=== PATIENT | male | born 1960 | race Caucasian/White ===

== ENCOUNTER → 2019-07-22 07:47 | Outpatient (BNVA) | payer MEDICARE, SELFPAY | PROVIDERS: Family Provider Family Medicine; PCP Family Medicine; Visit Provider Psychiatry & Neurology Psychiatry | DX: F41.1 Generalized anxiety disorder (principal); F40.10 Social phobia, unspecified; F33.1 Major depressive disorder, recurrent, moderate | CPT/HCPCS: 99213 ==

== ENCOUNTER 2019-07-26 11:17 | Outpatient (CLI) | payer MEDICARE, SELFPAY ==
--- NOTE | 2019-07-26 10:45 | USCV_ITS ---
Gio Ferraro Age: 58 Gender: M : 1960 Exam Date: 07/26/2019 11:23 Ordering Phys: Roe Adame MD ([email or web address]) Technologist: Little Wilson Exam Location: [facility] [place] Indication: SOB, BP: 91 / 65 HR: 85 Rhythm: Sinus Technical Quality: Adequate MEASUREMENTS (Male / Female) Normal Values 2D ECHO LV Diastolic Diameter PLAX 3.2 cm 4.2 - 5.9 / 3.9 - 5.3 cm LV Systolic Diameter PLAX 2.6 cm IVS Diastolic Thickness 1.6 cm 0.6 - 1.0 / 0.6 - 0.9 cm IVS Systolic Thickness 1.5 cm LVPW Diastolic Thickness 1.2 cm 0.6 - 1.0 / 0.6 - 0.9 cm LVPW Systolic Thickness 1.3 cm LVOT Diameter 2.1 cm LV Ejection Fraction 2D Teich 42.1 % LV Ejection Fraction MOD 2C 60.5 % LV Ejection Fraction 2C AL 61.8 % LA Diameter 3.0 cm LA Width 2.9 cm LA Height 4.9 cm RA Width 3.4 cm RA Height 4.4 cm M-MODE LV Diastolic Diameter MM 5.1 cm 4.2 - 5.9 / 3.9 - 5.3 cm LV Systolic Diameter MM 3.8 cm LV Ejection Fraction MM Teich 50.3 % IVS Diastolic Thickness MM 1.1 cm 0.6 - 1.0 / 0.6 - 0.9 cm IVS Systolic Thickness MM 1.4 cm LVPW Diastolic Thickness MM 1.2 cm 0.6 - 1.0 / 0.6 - 0.9 cm LVPW Systolic Thickness MM 2.1 cm Aortic Annulus Diameter 3.8 cm LA Ao Ratio MM 0.8 MV E Point Septal Separation 0.8 cm DOPPLER AV Peak Velocity 85.0 cm/s LVOT Peak Velocity 89.0 cm/s AV Area Cont Eq vti 3.8 cm squared AV Area Cont Eq pk 3.6 cm squared MV Peak Velocity 80.0 cm/s MV Area PHT 4.2 cm squared Mitral E to A Ratio 0.9 MV E' Velocity 5.0 cm/s Mitral E to MV E' Ratio 11.9 Mitral E to LV E' Lateral Ratio 11.7 Mitral E to LV E' Septal Ratio 12.1 TR Peak Velocity 63.0 cm/s TR Peak Gradient 1.6 mmHg Right Atrial Pressure 3.0 mmHg Pulmonary Artery Systolic Pressu 4.6 mmHg PV Peak Velocity 96.0 cm/s RV Acceleration Time 0.1 s FINDINGS Left Ventricle Normal left ventricular cavity size. Normal left ventricular systolic function. No regional wall motion abnormalities. Left ventricular ejection fraction is estimated at 55 %. Grade I/IV diastolic dysfunction (abnormal relaxation filling pattern), normal to mildly elevated filling pressures. Right Ventricle The right ventricle is normal in size and function. RVSP could not be calculated due to incomplete tricuspid regurgitation velocity profile. Right Atrium The right atrium is normal in size. Left Atrium The left atrium is normal in size. Mitral Valve Structurally normal mitral valve without significant stenosis or prolapse. There is no mitral regurgitation. Aortic Valve Moderate aortic valve calcification. No aortic valve stenosis. Trace aortic valve regurgitation. Tricuspid Valve Structurally normal tricuspid valve without significant stenosis or regurgitation. Pulmonary artery systolic pressure is normal. Pulmonic Valve Structurally normal pulmonic valve without significant stenosis. There is no pulmonic regurgitation. Pericardium Normal pericardium without effusion. Aorta Normal ascending aorta dimension. CONCLUSIONS 1-Normal left ventricular cavity size. Normal left ventricular systolic function. No regional wall motion abnormalities. Left ventricular ejection fraction is estimated at 55 %. Grade I/IV diastolic dysfunction (abnormal relaxation filling pattern), normal to mildly elevated filling pressures. 2-Moderate aortic valve calcification. No aortic valve stenosis. Trace aortic valve regurgitation. 3-Pulmonary artery systolic pressure is within normal limits. 4-There is no pericardial effusion. 5-Right atrial pressure is around 5 mm of mercury. 6-No significant change since the prior echocardiogram study of 01/22/2013. Roe Adame MD (Electronically Signed) Final Date: 26 July 2019 18:18 S
== END 2019-07-26 11:18 | disposition home or self-care (01) ==
LOC: US 11:18
PROVIDERS: PCP Family Medicine; Visit Provider Internal Medicine Cardiovascular Disease
DX: R06.02 Shortness of breath (principal); I27.20 Pulmonary hypertension, unspecified; I35.1 Nonrheumatic aortic (valve) insufficiency
CPT/HCPCS: 93306

== ENCOUNTER → 2019-08-09 14:00 | Outpatient (BNVA) | payer MEDICARE, SELFPAY | PROVIDERS: PCP Family Medicine; Visit Provider Family Medicine | DX: E11.65 Type 2 diabetes mellitus with hyperglycemia (principal); R35.0 Frequency of micturition; Z68.35 Body mass index [BMI] 35.0-35.9, adult; F17.210 Nicotine dependence, cigarettes, uncomplicated | CPT/HCPCS: 36416; 81000; 82962 ==

== ENCOUNTER → 2019-08-23 11:10 | Outpatient (BNVA) | payer MEDICARE, SELFPAY | PROVIDERS: PCP Family Medicine; Visit Provider Family Medicine | DX: E11.65 Type 2 diabetes mellitus with hyperglycemia (principal); F41.1 Generalized anxiety disorder; I10 Essential (primary) hypertension; Z68.36 Body mass index [BMI] 36.0-36.9, adult; F17.210 Nicotine dependence, cigarettes, uncomplicated | CPT/HCPCS: 80048; 83036 ==

== ENCOUNTER → 2019-12-20 09:53 | Outpatient (BNVA) | payer MEDICARE, SELFPAY | PROVIDERS: PCP Family Medicine; Visit Provider Family Medicine | DX: E11.65 Type 2 diabetes mellitus with hyperglycemia (principal) | CPT/HCPCS: 80053; 83036 ==

== ENCOUNTER → 2020-01-13 08:26 | Outpatient (BNVA) | payer MEDICARE, MEDICAID, SELFPAY | PROVIDERS: PCP Family Medicine; Visit Provider Psychiatry & Neurology Psychiatry | DX: F41.1 Generalized anxiety disorder (principal); F40.10 Social phobia, unspecified; F33.1 Major depressive disorder, recurrent, moderate | CPT/HCPCS: 99213 ==

== ENCOUNTER → 2020-04-25 11:01 | Outpatient (BNVA) | payer MEDICARE, SELFPAY | PROVIDERS: PCP Family Medicine; Visit Provider Family Medicine | DX: E11.65 Type 2 diabetes mellitus with hyperglycemia (principal) | CPT/HCPCS: 80048; 83036 ==

== ENCOUNTER → 2020-07-03 09:12 | Outpatient (BNVA) | payer MEDICARE, MEDICAID, SELFPAY | PROVIDERS: PCP Family Medicine; Visit Provider Psychiatry & Neurology Psychiatry | DX: F41.1 Generalized anxiety disorder (principal); F40.10 Social phobia, unspecified; F33.1 Major depressive disorder, recurrent, moderate | CPT/HCPCS: 99214 ==

== ENCOUNTER 2020-10-04 12:15 | Outpatient (CLI) | payer MEDICARE, SELFPAY ==
--- NOTE | 2020-10-04 12:00 | CT_ITS ---
WS: [id number] CTA HEAD TECHNIQUE: Contrast enhanced CTA of the head with coronal and sagittal reformatted images and maximum intensity projection (MIP) images. NASCET criteria utilized. CLINICAL INFORMATION: right sided weakness 6+ hours on elequis COMPARISON: None. DLP: 632.[address] scans at [facility] use at least one of these dose optimization techniques: automat ed exposure control; mA and/or kV adjustment per patient size (includes targeted exams where dose is matched to clinical indication); or iterative reconstruction. FINDINGS: INTRACRANIAL CTA: Distal vertebral arteries are patent. Basilar artery is patent. Normal vascularity to the [place] territo ry bilaterally. Both ICAs are patent the skull base. Tortuous cavernous carotid arteries. Normal vascularity to the A CA and MCA territories bilaterally. No evidence of flow-limiting stenosis or aneurysm. CT/CT angio head [id number] IMPRESSION: Normal intracranial CTA.
--- NOTE | 2020-10-04 12:30 | CT_ITS ---
WS: [id number] CT HEAD TECHNIQUE: Noncontrast CT of the head obtained from the skullbase to the vertex. CLINICAL INFORMATION: right sided weakness x 6 hours on elequis COMPARISON: 7 012 DLP: 1021.[address] scans at [facility] use at least one of these dose optimization techniques: automat ed exposure control; mA and/or kV adjustment per patient size (includes targeted exams where dose is matched to clinical indication); or iterative reconstruction. FINDINGS: No evidence of intracranial hemorrhage or mass effect. Ventricular system and basal cisterns are perry nt. Mild small vessel changes with moderate parenchymal volume loss. No extra-axial fluid collections . Chronic lacunar infarct right caudate. Intracranial vascular calcification. Dystrophic calcificatio n along the falx. No evidence of mass or mass effect. Paranasal sinuses and mastoid air cells are well aerated. .Normal visualized soft tissues. CT/CT head wo con* [id number] IMPRESSION: 1. No evidence of intracranial hemorrhage or mass effect. 2. Mild small vessel changes. Moderate parenchymal volume loss. 3. No acute intracranial findings.
[2020-10-04] MEDS: iohexol 350 mg/mL 100 mL Btl IV (13:47)
== END 2020-10-04 12:16 | disposition home or self-care (01) ==
LOC: RAD 12:23
PROVIDERS: PCP Family Medicine; Visit Provider Family Medicine
DX: R53.1 Weakness (principal)
CPT/HCPCS: 36416; 70450; 70496; 82962

== ENCOUNTER → 2020-12-25 10:51 | Outpatient (BNVA) | payer MEDICARE, MEDICAID, SELFPAY | PROVIDERS: PCP Family Medicine; Visit Provider Psychiatry & Neurology Psychiatry | DX: F41.1 Generalized anxiety disorder (principal); F40.10 Social phobia, unspecified; F33.1 Major depressive disorder, recurrent, moderate | CPT/HCPCS: 99213 ==

== ENCOUNTER → 2021-02-12 09:27 | Outpatient (BNVA) | payer MEDICARE, MEDICAID, SELFPAY | PROVIDERS: PCP Family Medicine; Visit Provider Family Medicine | DX: E11.9 Type 2 diabetes mellitus without complications (principal) | CPT/HCPCS: 80053; 83036; 85025 ==

== ENCOUNTER → 2021-02-13 09:21 | Outpatient (BNVA) | payer MEDICARE, MEDICAID, SELFPAY | PROVIDERS: PCP Family Medicine; Visit Provider Family Medicine | DX: E11.65 Type 2 diabetes mellitus with hyperglycemia (principal); E03.9 Hypothyroidism, unspecified; E78.00 Pure hypercholesterolemia, unspecified | CPT/HCPCS: 80061; 84443 ==

== ENCOUNTER → 2021-06-18 10:52 | Outpatient (BNVA) | payer MEDICARE, MEDICAID, SELFPAY | PROVIDERS: PCP Family Medicine; Visit Provider Psychiatry & Neurology Psychiatry | DX: F41.1 Generalized anxiety disorder (principal); F40.10 Social phobia, unspecified; F33.1 Major depressive disorder, recurrent, moderate | CPT/HCPCS: 99214 ==

== ENCOUNTER → 2021-10-08 10:25 | Outpatient (BNVA) | payer MEDICARE, MEDICAID, SELFPAY | PROVIDERS: PCP Family Medicine; Visit Provider Family Medicine | DX: I82.401 Acute embolism and thrombosis of unspecified deep veins of right lower extremity (principal); I10 Essential (primary) hypertension; E11.65 Type 2 diabetes mellitus with hyperglycemia; F41.1 Generalized anxiety disorder | CPT/HCPCS: 80053; 83036; 85025 ==

== ENCOUNTER 2021-10-09 09:00 | Outpatient (CLI) | payer MEDICARE, SELFPAY ==
--- NOTE | 2021-10-09 09:07 | USCV_ITS ---
Gio Ferraro Age: 60 Gender: M : 1960 Exam Date: 10/09/2021 09:35 Ordering Phys: Terrell Verdin MD Technologist: Jose Alberto Jimenez Exam Location: [facility] [place] Indication: DVT OF RIGHT LOWER EXTREMITY HISTORY: Patient states that he had DVT 5 years ago. Patient states he is currently on blood thinner. PROCEDURES: Comparison:. 10/14/18. Venous duplex imaging was performed in only the right lower extremity. The following venous structures were evaluated: common femoral vein, profunda vein, proximal portion of the greater saphenous vein, superficial femoral vein, and the popliteal vein. In addition, the posterior tibial and peroneal trunk were evaluated. Serial compression, augmentation maneuvers, and spectral Doppler flow evaluation were performed. FINDINGS: Within the right lower extremity t there is partial thrombus or remnant of thrombus in the CFV, SFV mid, and popliteal. Prior acute DVT described in 2019. All other veins examined appear free of thrombus at this time. CONCLUSIONS Suspect chronic right lower extremity DVT. Dr. Pau Tse DO (Electronically Signed) Final Date: 09 October 2021 15:12 S
== END 2021-10-09 09:01 | disposition home or self-care (01) ==
LOC: RAD 09:01
PROVIDERS: PCP Family Medicine; Visit Provider Family Medicine
DX: I82.401 Acute embolism and thrombosis of unspecified deep veins of right lower extremity (principal)
CPT/HCPCS: 93971

== ENCOUNTER → 2022-04-08 09:47 | Outpatient (BNVA) | payer OTHER, SELFPAY | PROVIDERS: PCP Family Medicine; Visit Provider Family Medicine | DX: E11.9 Type 2 diabetes mellitus without complications (principal) | CPT/HCPCS: 80053; 83036; 85025 ==

== ENCOUNTER → 2022-10-09 10:58 | Outpatient (BNVA) | payer MEDICARE, SELFPAY | PROVIDERS: PCP Family Medicine; Visit Provider Family Medicine | DX: E11.65 Type 2 diabetes mellitus with hyperglycemia | CPT/HCPCS: 80053; 83036; 85025 ==

== ENCOUNTER 2022-10-23 12:47 | Outpatient (CLI) | payer MEDICARE, SELFPAY ==
--- NOTE | 2022-10-23 13:30 | USCV_ITS ---
Gio Ferraro Age: 61 Gender: M : 1960 Exam Date: 10/23/2022 14:06 Ordering Phys: Terrell Verdin MD Technologist: Yadira Prince Exam Location: [facility] [place] Indication: FOLLOW UP ON KNOWN DVT RT LE FROM 2018 HISTORY: Known history of DVT RLE PROCEDURES: Venous duplex imaging was performed in only the right lower extremity. The following venous structures were evaluated: common femoral vein, profunda vein, proximal portion of the greater saphenous vein, superficial femoral vein, and the popliteal vein. In addition, the posterior tibial and peroneal trunk were evaluated. Serial compression, augmentation maneuvers, and spectral Doppler flow evaluation were performed. FINDINGS: Flow noted in all areas. There is still debris with in the Rt CFV and FV and POP. Flow is seen and it will augment. There is incomplete compression in Rt. CFV and FV and POP comp 10/09/21 CONCLUSIONS Residual debris from chronic dvt RIGHT common femoral, femoral, and popliteal vein. Flow visualized in all segments. No new or progressed thrombus. Garo Kulkarni MD (Electronically Signed) Final Date: 23 October 2022 16:43 S
== END 2022-10-23 12:48 | disposition home or self-care (01) ==
PROVIDERS: PCP Family Medicine; Visit Provider Family Medicine
DX: I82.401 Acute embolism and thrombosis of unspecified deep veins of right lower extremity (principal)
CPT/HCPCS: 93971

== ENCOUNTER → 2022-12-02 12:17 | Outpatient (BNVA) | payer MEDICARE, SELFPAY | PROVIDERS: PCP Family Medicine; Visit Provider Family Medicine | DX: E11.9 Type 2 diabetes mellitus without complications (principal); F41.1 Generalized anxiety disorder | CPT/HCPCS: 82962 ==

== ENCOUNTER → 2023-01-06 10:01 | Outpatient (BNVA) | payer MEDICARE, SELFPAY | PROVIDERS: PCP Family Medicine; Referring Provider Family Medicine; Visit Provider Internal Medicine Cardiovascular Disease | DX: R55 Syncope and collapse (principal); E11.9 Type 2 diabetes mellitus without complications; F33.1 Major depressive disorder, recurrent, moderate; F40.10 Social phobia, unspecified; Z91.89 Other specified personal risk factors, not elsewhere classified | CPT/HCPCS: 93246; 93248 ==

== ENCOUNTER → 2023-06-09 09:56 | Outpatient (BNVA) | payer MEDICARE, SELFPAY | PROVIDERS: PCP Family Medicine; Visit Provider Family Medicine | DX: E11.65 Type 2 diabetes mellitus with hyperglycemia (principal); R55 Syncope and collapse; Z91.89 Other specified personal risk factors, not elsewhere classified; F40.10 Social phobia, unspecified; I10 Essential (primary) hypertension | CPT/HCPCS: 80053; 83036; 85025 ==

== ENCOUNTER → 2023-08-11 09:16 | Outpatient (BNVA) | payer MEDICARE, SELFPAY | PROVIDERS: PCP Family Medicine; Visit Provider Family Medicine | DX: I82.409 Acute embolism and thrombosis of unspecified deep veins of unspecified lower extremity (principal); F41.1 Generalized anxiety disorder; F33.1 Major depressive disorder, recurrent, moderate; E11.65 Type 2 diabetes mellitus with hyperglycemia; I10 Essential (primary) hypertension; R73.03 Prediabetes | CPT/HCPCS: 80053; 83036; 85025 ==

== ENCOUNTER → 2023-08-29 10:11 | Outpatient (BNVA) | payer MEDICARE, SELFPAY | PROVIDERS: PCP Family Medicine; Visit Provider Family Medicine | DX: N18.9 Chronic kidney disease, unspecified (principal); Z79.899 Other long term (current) drug therapy | CPT/HCPCS: 85025 ==

== ENCOUNTER → 2023-09-15 09:41 | Outpatient (BNVA) | payer MEDICARE, SELFPAY | PROVIDERS: PCP Family Medicine; Visit Provider Family Medicine | DX: E11.65 Type 2 diabetes mellitus with hyperglycemia (principal) | CPT/HCPCS: 80048 ==

== ENCOUNTER → 2024-03-15 09:45 | Outpatient (BNVA) | payer MEDICARE, SELFPAY | PROVIDERS: PCP Family Medicine; Visit Provider Family Medicine | DX: R55 Syncope and collapse (principal); I10 Essential (primary) hypertension; E11.65 Type 2 diabetes mellitus with hyperglycemia; Z91.89 Other specified personal risk factors, not elsewhere classified | CPT/HCPCS: 80053; 83036; 85025 ==

== ENCOUNTER → 2024-05-31 15:16 | Outpatient (BNVA) | payer MEDICARE, SELFPAY | PROVIDERS: PCP Family Medicine; Visit Provider Family Medicine | DX: R35.1 Nocturia (principal); I10 Essential (primary) hypertension; E11.65 Type 2 diabetes mellitus with hyperglycemia; N10 Acute pyelonephritis; F41.1 Generalized anxiety disorder | CPT/HCPCS: 80053; 81000; 85025 ==

== ENCOUNTER 2024-06-26 00:22 | Emergency (ER) | payer MEDICARE, SELFPAY ==
[2024-06-26 00:29] VITALS: BP 158/89; PULSE 84; RESP 18; TEMP 36.9; O2SAT 98
[2024-06-26 00:55] LABS: Basophils # 0.1 10^3/uL (0.0-0.1); Basophils % 0.3 %; Eosinophils # 0.2 10^3/uL (0.0-0.8); Eosinophils % 1.3 %; Hematocrit 34.8 % (37-53); Lymphocytes # 1.8 10^3/uL (0.8-4.8); Lymphocytes % 11.9 %; Mean Corpuscular Hemoglobin 26.7 pg (27-33); Mean Corpuscular Volume 80.9 fl (82-101); Mean Platelet Volume 9.2 fL (7.4-10.4); Monocytes # 1.6 10^3/uL (0.2-0.9); Monocytes % 10.6 %; Nucleated Red Blood Cells % 0 %; Platelet Count 127 10^3/cmm (157-399); Red Cell Distribution Width 13.7 % (12.1-15.1); White Blood Count 15.07 10^3/uL (3.29-11.43)
[2024-06-26 01:16] LABS: Anion Gap 19.9 (5-19); Blood Urea Nitrogen 49 mg/dL (8-23); Calcium 9.9 mg/dL (8.5-10.5); Carbon Dioxide 16 mmol/L (22-29); Chloride 101 mmol/L (98-107); Creatinine Clr Calc Pharmacy 30.3756; Glomerular Filtration Rate 22.1 mL/min (90-130); Glucose 164 mg/dL (65-115); Lipase 87 U/L (13-60); Magnesium 1.3 mg/dL (1.7-2.3); Osmolality Calculated 291 mOsm/kg (285-295); Potassium 4.9 mmol/L (3.5-5.1); Sodium 132 mmol/L (136-145)
--- NOTE | 2024-06-26 03:45 | CTR_ITS ---
PROCEDURE INFORMATION: Exam: CT Abdomen And Pelvis Without Contrast Exam date and time: 06/26/2024 4:22 AM Age: 63 years old Clinical indication: Bloating; Abdominal pain; Generalized; Prior surgery; Surgery date: 6+ months; Surgery type: Gb; C/O severe abd pain with distention; Additional info: Severe abdominal pain and distention. , Unable to do iv contrast secondary to gfr of 22 TECHNIQUE: Imaging protocol: Computed tomography of the abdomen and pelvis without contrast. Radiation optimization: All CT scans at this facility use at least one of these dose optimization techniques: automated exposure control; mA and/or kV adjustment per patient size (includes targeted exams where dose is matched to clinical indication); or iterative reconstruction. COMPARISON: CT angio chest PE protcl [id number] 10/14/2018 8:58 AM RADIATION DOSE METRICS: Total DLP (mGy-cm): 1115.33 FINDINGS: Liver: Normal appearance of the liver. Gallbladder and biliary ducts: Status post cholecystectomy. Pancreas: No ductal dilation. Spleen: Unremarkable. Adrenal glands: Unremarkable. Kidneys and ureters: Severe bilateral hydroureteronephrosis. Stomach and bowel: No obstruction. No mucosal thickening. Appendix: Normal appendix. Intraperitoneal space: No free air. No significant fluid collection. Vasculature: Unremarkable. Lymph nodes: No enlarged lymph nodes. Urinary bladder: Urinary bladder is markedly dilated. Reproductive: Mild stranding about the prostate. Bones/joints: Unremarkable. No acute fracture. Soft tissues: Small fat containing ventral abdominal wall hernia. CT/CT abdomen pelvis wo con [id number] IMPRESSION: 1. Urinary bladder is markedly dilated with severe bilateral hydroureteronephrosis. Findings are concerning for bladder outlet obstruction. Recommend catheterization. 2. Mild stranding about the prostate, concerning for prostatitis. This could potentially be the cause for outlet obstruction.
[2024-06-26] MEDS: sodium chloride 0.9% 1,000 ML 999 ML IV (04:03)
[2024-06-26] MEDS: ondansetron 2 mg/ML SDV 2 mL 8 MG IVP (04:04)
[2024-06-26] MEDS: HYDROmorphone 0.5 MG/0.5 ML INJ 1 MG IVP (04:06)
[2024-06-26 04:10] LABS: INR 1.01 (0.8-1.2)
[2024-06-26 04:11] VITALS: PULSE 75; RESP 22; O2SAT 100
[2024-06-26 04:11] LABS: Partial Thromboplastin Time 29.5 SECONDS (23.9-36.7)
[2024-06-26 04:29] LABS: Lactic Sepsis W/Reflex 1.6 mmol/L (0.5-2.2)
[2024-06-26 05:46] LABS: Procalcitonin 0.27 ng/mL (0-0.5)
[2024-06-26] MEDS: lidocaine 2% Urojet 20 mL TOPICAL (05:50)
[2024-06-26 05:58] VITALS: BP 122/69; PULSE 77; RESP 18; O2SAT 99
--- NOTE | 2024-06-26 06:01 | W.ED.ABDPA2 ---
Documented by User: Dakota Agarwal MD 06/26/24 06:08 HPI - Abdominal Pain General: Chief Complaint: Abdominal Pain Stated Complaint: abdomen pain Time Seen by Provider: 06/26/24 03:27 Source: patient and family Mode of arrival: ambulatory Limitations: no limitations History of Present Illness: Patient comes in with severe abdominal pain. Also had some diarrhea today. He is having flank pain mainly at the right side his abdomen is very distended and hard. He has a history of a hiatal hernia. He he also has a history of major abdominal surgery with ex lap scarring on the middle. He reports that had to do things with his gallbladder and pancreas he is unsure of the details. Due to the distention and some trouble breathing and had to have no more than a few sips of water at time due to nausea. He has a history of kidney issues and in fact has a scheduled appoint with urology on Friday. He also reports a ringing sound in his head that is causing him to be dizzy. Related Data Home Medications ?Medication ?Instructions ?Recorded ?Confirmed aspirin 81 mg chewable tablet 81 mg PO DAILY 12/25/20 06/26/24 Previous Rx's ?Medication ?Instructions ?Recorded sitagliptin phosphate 100 mg See Rx Instructions .Route 01/13/24 tablet (Januvia) .COMPLEX #90 tabs metformin 500 mg tablet 500 mg PO DAILY #90 tabs 03/15/24 allopurinol 100 mg tablet See Rx Instructions .Route 04/16/24 .COMPLEX #90 tabs glipizide 5 mg tablet See Rx Instructions .Route 04/16/24 .COMPLEX #540 tabs glucose meter/supplies: #50 ea 04/21/24 lancets/pads/test strips one touch ultra test srips #100 ea 04/21/24 aripiprazole 15 mg tablet (Abilify) 15 mg PO DAILY #30 tabs 04/28/24 bupropion HCl 150 mg 24 hr tablet, 150 mg PO QAM #30 tabs 04/28/24 extended release (Wellbutrin XL) diazepam 5 mg tablet 5 mg PO BID PRN anxiety #60 tabs 04/28/24 hydroxyzine HCl 50 mg tablet 50 mg PO QID PRN insomnia #120 tabs 04/28/24 mirtazapine 45 mg tablet 45 mg PO .HS #30 tabs 04/28/24 venlafaxine 150 mg 150 mg PO DAILY #30 caps 04/28/24 capsule,extended release 24 hr (Effexor XR) venlafaxine 75 mg capsule,extended 75 mg PO DAILY #30 caps 04/28/24 release 24 hr (Effexor XR) lisinopril 20 mg tablet See Rx Instructions .Route 05/17/24 .COMPLEX #90 tabs carvedilol 12.5 mg tablet 12.5 mg PO BID #60 tabs 05/31/24 tramadol 50 mg tablet 50 mg PO BID PRN headache #20 tabs 05/31/24 ciprofloxacin HCl 500 mg tablet 500 mg PO BID 14 days #28 tabs 06/26/24 (Cipro) tamsulosin 0.4 mg capsule 0.4 mg PO DAILY #30 caps 06/26/24 Allergies Allergy/AdvReac Type Severity Reaction Status Date / Time No Known Allergies Allergy Verified 06/26/24 00:33 Review of Systems General: Reports: 10 or more systems reviewed and unremarkable except in HPI and below PFSH ED PFSH: Medical History (Updated 06/26/24 @ 07:23 by Aguila Lima DO) Deep vein thrombosis (DVT) of right lower extremity Psychiatric care Essential hypertension DVT (deep venous thrombosis) DVT (deep venous thrombosis) Shortness of breath Surgical History S/P AAA repair Family History Other CAD (coronary artery disease) Dementia Diabetes Hyperlipidemia Hypertension Social History Smoking and tobacco/nicotine status: never used tobacco/nicotine Quit status (tobacco/nicotine): not considering quitting Second hand smoke exposure: No Alcohol intake: former Substance/Drug Use: former Physical Exam Narrative: EXAM NARRATIVE: On my exam patient is in somewhat of a panic attack, however this is apparently somewhat common for him as he is also on Abilify bupropion and Valium twice daily as needed. Patient comforted seem to be talked out of the pain tach. Given medication for pain. GI exam shows distended belly with some guarding, the distention is tight but this is not a rigid/surgical abdomen. Also has some right CVA tenderness no left CVA tenderness. Const: COMMON NORMALS: no acute distress, average body habitus, patient oriented x3, healthy appearing, alert and well nourished GENERAL APPEARANCE: well kempt and well developed HENMT: COMMON NORMALS: normocephalic, atraumatic, external ears normal and moist oral mucous membranes HEAD & SCALP: normocephalic and atraumatic EXTERNAL EAR: Yes external ears normal Eye: COMMON NORMALS: Equal, round and reactive pupils present, EOMs intact bilaterally and conjunctivae normal CONJUNCTIVA: Yes conjunctivae normal PUPIL: Yes Equal, round and reactive pupils present Neck/C-Spine: COMMON NORMALS: full ROM, no lymphadenopathy and supple Chest: CHEST: Yes Symmetrical chest wall rise and No Surgical scars present (Chest) Resp: COMMON NORMALS: normal respiratory effort, No retractions, No use of accessory muscles and clear to auscultation bilaterally AUSCULTATION: clear to auscultation bilaterally Cardio: COMMON NORMALS: regular rate, regular rhythm, S1 normal heart sound present, S2 normal heart sound present, No gallops present (Cardio), No clicks present (Cardio), No murmurs present (Cardio) and No rub (Cardio) RATE: regular rate RHYTHM: regular rhythm HEART SOUNDS: S1 normal heart sound present, S2 normal heart sound present and no murmurs PERIPHERAL PULSES: other (Radial pulses 2+ and symmetric) : COMMON NORMALS: Yes no CVA tenderness BLADDER/KIDNEY EXAM: Yes no CVA tenderness Back/Pelvis: COMMON NORMALS: no CVA tenderness Extremity: COMMON NORMALS: normal to inspection, full ROM, capillary refill normal and no clubbing, cyanosis or edema Neuro: COMMON NORMALS: patient oriented x3 SENSORIUM/ORIENTATION: Yes alert Psych: APPEARANCE: Yes well kempt Skin: COMMON NORMALS: no rashes or lesions noted, no wounds, turgor normal and no jaundice GENERAL SKIN EXAM: no rashes or lesions noted and turgor normal Course Vital Signs: Vital signs: Vital Signs Temperature 98.5 F 06/26/24 00:29 Pulse Rate 75 06/26/24 07:55 Respiratory Rate 18 06/26/24 05:58 Blood Pressure 107/71 06/26/24 07:55 Pulse Oximetry 100 06/26/24 07:55 Oxygen Delivery Me thod Room Air 06/26/24 06:24 MDM - Abdominal Pain Medical Decision Making CT personally reviewed and shows significant bladder distention and hydronephrosis bilaterally. However radiology read provide some details including stranding around the prostate concerning for prostatitis. Definitely has bladder outlet obstruction, no other findings on radiology read. Labs are remarkable for elevated white count of 15. Creatinine 2.9 but this appears to be baseline. Cortes has been placed patient has over 2 L of output. Will be monitored a little bit longer in the ER just to make sure there is no continued problems or issues with volume changes. There will be likely discharged with leg bag as he already has urology follow-up on Friday. Differential Diagnosis Likely abdominal pain, calculus of kidney, constipation, gastroenteritis, pancreatitis and small bowel obstruction Medical Records I reviewed the patient's medical records. Lab Data I reviewed the patient's lab results. 06/26/24 00:50 06/26/24 00:50 Labs/Radiology: Radiology Impressions Abdomen/Pelvis CT 06/26/24 03:45 IMPRESSION: 1. Urinary bladder is markedly dilated with severe bilateral hydroureteronephrosis. Findings are concerning for bladder outlet obstruction. Recommend catheterization. 2. Mild stranding about the prostate, concerning for prostatitis. This could potentially be the cause for outlet obstruction. Laboratory Results WBC 15.07 10^3/uL (3.29-11.43) H 06/26/24 00:50 RBC 4.30 10^6/uL (3.85-5.65) 06/26/24 00:50 Hgb 11.50 g/dL (11.27-16.99) 06/26/24 00:50 Hct 34.8 % (37-53) L 06/26/24 00:50 MCV 80.9 fl (82-101) L 06/26/24 00:50 MCH 26.7 pg (27-33) L 06/26/24 00:50 MCHC 33.0 g/dL (30-55) 06/26/24 00:50 RDW 13.7 % (12.1-15.1) 06/26/24 00:50 Plt Count 127 10^3/cmm (157-399) L 06/26/24 00:50 MPV 9.2 fL (7.4-10.4) 06/26/24 00:50 Neut % (Auto) 75.0 % 06/26/24 00:50 Lymph % (Auto) 11.9 % 06/26/24 00:50 [place] % (Auto) 10.6 % 06/26/24 00:50 Eos % (Auto) 1.3 % 06/26/24 00:50 Baso % (Auto) 0.3 % 06/26/24 00:50 Neut # (Auto) 11.30 10^3/uL (1.8-7.7) H 06/26/24 00:50 Lymph # (Auto) 1.8 10^3/uL (0.8-4.8) 06/26/24 00:50 [place] # (Auto) 1.6 10^3/uL (0.2-0.9) H 06/26/24 00:50 Eos # (Auto) 0.2 10^3/uL (0.0-0.8) 06/26/24 00:50 Baso # (Auto) 0.1 10^3/uL (0.0-0.1) 06/26/24 00:50 Nucleated RBC % (auto) 0 % 06/26/24 00:50 Nucleated RBCs # 0.0 /100WBC 06/26/24 00:50 PT 14.10 SECONDS (12.1-14.9) 06/26/24 00:50 INR 1.01 (0.8-1.2) 06/26/24 00:50 APTT 29.5 SECONDS (23.9-36.7) 06/26/24 00:50 Sodium 132 mmol/L (136-145) L 06/26/24 00:50 Potassium 4.9 mmol/L (3.5-5.1) 06/26/24 00:50 Chloride 101 mmol/L (98-107) 06/26/24 00:50 Carbon Dioxide 16 mmol/L (22-29) L 06/26/24 00:50 Anion Gap 19.9 (5-19) H 06/26/24 00:50 BUN 49 mg/dL (8-23) H 06/26/24 00:50 Creatinine 2.9 mg/dL (0.7-1.2) H 06/26/24 00:50 GFR Calculation 22.1 mL/min (90-130) L 06/26/24 00:50 Glucose 164 mg/dL (65-115) H 06/26/24 00:50 Calculated Osmolality 291 mOsm/kg (285-295) 06/26/24 00:50 Lactic Acid 1.6 mmol/L (0.5-2.2) 06/26/24 04:00 Calcium 9.9 mg/dL (8.5-10.5) 06/26/24 00:50 Magnesium 1.3 mg/dL (1.7-2.3) L 06/26/24 00:50 Lipase 87 U/L (13-60) H 06/26/24 00:50 Procalcitonin 0.27 ng/mL (0-0.5) 06/26/24 00:50 Urine Color Yellow (Yellow) 06/26/24 05:50 Urine Appearance Clear (CLEAR) 06/26/24 05:50 Urine pH 5.5 (5-7) 06/26/24 05:50 Ur Specific [place] 1.011 (1.005-1.030) 06/26/24 05:50 Urine Protein Negative (Negative) 06/26/24 05:50 Urine Glucose (UA) Negative (Normal) 06/26/24 05:50 Urine Ketones Negative (Negative) 06/26/24 05:50 Urine Blood Negative (Negative) 06/26/24 05:50 Urine Nitrate Negative (Negative) 06/26/24 05:50 Urine Bilirubin Negative (Negative) 06/26/24 05:50 Urine Urobilinogen 0.2 mg/dL (Negative) 06/26/24 05:50 Ur Leukocyte Esterase 1+ (Negative) A 06/26/24 05:50 Urine RBC 0-2 /hpf (0-2) 06/26/24 05:50 Urine WBC 11-20 /hpf (0-5) H 06/26/24 05:50 Ur Squamous Epith Cells 0-5 /hpf (0-5) 06/26/24 05:50 Amorphous Sediment Not Reportable 06/26/24 05:50 Urine Bacteria None seen /hpf (NONE) 06/26/24 05:50 Hyaline Casts 0.40 /lpf 06/26/24 05:50 Blood Type B Positive 06/26/24 04:02 Rho(D) Type Rh positive 06/26/24 04:02 Antibody Screen Negative 06/26/24 04:02 All radiology interpretation(s) finalized by discharge Discharge Plan Discharge Patient Disposition: Home Clinical Impression: Acute urinary retention, Acute prostatitis Condition: Stable Prescriptions: New tamsulosin 0.4 mg capsule 0.4 mg PO DAILY Qty: 30 0RF ciprofloxacin HCl [Cipro] 500 mg tablet 500 mg PO BID 14 Days Qty: 28 0RF No Action aspirin 81 mg tablet,chewable 81 mg PO DAILY aripiprazole [Abilify] 15 mg tablet 15 mg PO DAILY Qty: 30 11RF bupropion HCl [Wellbutrin XL] 150 mg tablet extended release 24 hr 150 mg PO QAM Qty: 30 11RF venlafaxine [Effexor XR] 150 mg capsule,extended release 24hr 150 mg PO DAILY Qty: 30 11RF Rx Instructions: take 1 tab (150mg) with 1 75mg venlafaxine [Effexor XR] 75 mg capsule,extended release 24hr 75 mg PO DAILY Qty: 30 11RF Rx Instructions: Total of 225 mg daily mirtazapine 45 mg tablet 45 mg PO .HS Qty: 30 11RF hydroxyzine HCl 50 mg tablet 50 mg PO QID PRN (Reason: insomnia) Qty: 120 11RF diazepam 5 mg tablet 5 mg PO BID PRN (Reason: anxiety) Qty: 60 4RF carvedilol 12.5 mg tablet 12.5 mg PO BID Qty: 60 4RF Rx Instructions: first 6 days take 1/2 twice daily, then increase to whole tab twice daily tramadol 50 mg tablet 50 mg PO BID PRN (Reason: headache) Qty: 20 0RF Januvia 100 mg tablet See Rx Instructions .ROUTE .COMPLEX Qty: 90 1RF Dose Instruction: TAKE ONE TABLET BY MOUTH EVERY DAY Rx Instructions: TAKE ONE TABLET BY MOUTH EVERY DAY metformin 500 mg tablet 500 mg PO DAILY Qty: 90 1RF allopurinol 100 mg tablet See Rx Instructions .ROUTE .COMPLEX Qty: 90 3RF Dose Instruction: TAKE ONE TABLET BY MOUTH EVERY DAY Rx Instructions: TAKE ONE TABLET BY MOUTH EVERY DAY glipizide 5 mg tablet See Rx Instructions .ROUTE .COMPLEX Qty: 540 1RF Dose Instruction: TAKE 2 TABLETS BY MOUTH THREE TIMES DAILY Rx Instructions: TAKE 2 TABLETS BY MOUTH THREE TIMES DAILY (DME) one touch ultra test srips See Rx Instructions .Route .MEDSUPPLY Qty: 100 0RF Rx Instructions: As directed (DME) glucose meter/supplies: lancets/pads/test strips See Rx Instructions .Route .MEDSUPPLY Qty: 50 0RF Rx Instructions: As directed lisinopril 20 mg tablet See Rx Instructions .ROUTE .COMPLEX Qty: 90 1RF Dose Instruction: TAKE 1 TABLET BY MOUTH DAILY *must be seen* Rx Instructions: TAKE 1 TABLET BY MOUTH DAILY *must be seen* Discharge Orders: Discharge ED (Routine); Ordered 06/26/24 Ordered By: Aguila Lima Referrals: Terrell Verdin MD [Primary Care Provider, Family Practice] Discharge Diet: Usual diet Discharge Activity: Increase activity as tolerated Patient Instructions: Opioid Safety, Pain Management Activity Restrictions/Additional Instructions: Thank you for choosing [facility] for your healthcare needs today. It is very important that you follow up as instructed or that you return to the Emergency Department should you have concerns or if your condition changes or worsens in any way. You were seen in the emergency room with complaints of abdominal pain and CT head urinary retention likely due to prostatitis. Cortes bladder catheter was placed. CT did not show any other acute pathology besides urinary retention. There is signs of prostatitis. Your renal function is somewhat elevated recommend that you stop the Bactrim and instead switch to ciprofloxacin 1 tablet twice a day. You should follow-up with your doctor in the next 4 to 5 days to recheck your kidney function. Keep your appointment with urology as planned. Print Language: Hungarian Sign Out Sign Out Data: Patient Sign Out occurred on 06/26/24 at 06:38. Patient's care was discussed, and care was transferred from Dakota Agarwal MD to Aguila Lima DO. Coding Level of Care Code ED Physical Therapy Instructor for Chg Fwd Documented by User: Aguila Lima DO 06/26/24 09:56 HPI - Abdominal Pain General: Chief Complaint: Abdominal Pain Stated Complaint: abdomen pain Time Seen by Provider: 06/26/24 03:27 Related Data Home Medications ?Medication ?Instructions ?Recorded ?Confirmed aspirin 81 mg chewable tablet 81 mg PO DAILY 12/25/20 06/26/24 Previous Rx's ?Medication ?Instructions ?Recorded sitagliptin phosphate 100 mg See Rx Instructions .Route 01/13/24 tablet (Januvia) .COMPLEX #90 tabs metformin 500 mg tablet 500 mg PO DAILY #90 tabs 03/15/24 allopurinol 100 mg tablet See Rx Instructions .Route 04/16/24 .COMPLEX #90 tabs glipizide 5 mg tablet See Rx Instructions .Route 04/16/24 .COMPLEX #540 tabs glucose meter/supplies: #50 ea 04/21/24 lancets/pads/test strips one touch ultra test srips #100 ea 04/21/24 aripiprazole 15 mg tablet (Abilify) 15 mg PO DAILY #30 tabs 04/28/24 bupropion HCl 150 mg 24 hr tablet, 150 mg PO QAM #30 tabs 04/28/24 extended release (Wellbutrin XL) diazepam 5 mg tablet 5 mg PO BID PRN anxiety #60 tabs 04/28/24 hydroxyzine HCl 50 mg tablet 50 mg PO QID PRN insomnia #120 tabs 04/28/24 mirtazapine 45 mg tablet 45 mg PO .HS #30 tabs 04/28/24 venlafaxine 150 mg 150 mg PO DAILY #30 caps 04/28/24 capsule,extended release 24 hr (Effexor XR) venlafaxine 75 mg capsule,extended 75 mg PO DAILY #30 caps 04/28/24 release 24 hr (Effexor XR) lisinopril 20 mg tablet See Rx Instructions .Route 05/17/24 .COMPLEX #90 tabs carvedilol 12.5 mg tablet 12.5 mg PO BID #60 tabs 05/31/24 tramadol 50 mg tablet 50 mg PO BID PRN headache #20 tabs 05/31/24 ciprofloxacin HCl 500 mg tablet 500 mg PO BID 14 days #28 tabs 06/26/24 (Cipro) tamsulosin 0.4 mg capsule 0.4 mg PO DAILY #30 caps 06/26/24 Allergies Allergy/AdvReac Type Severity Reaction Status Date / Time No Known Allergies Allergy Verified 06/26/24 00:33 [facility] ED PFSH: Medical History (Updated 06/26/24 @ 07:23 by Aguila Lima, DO) Deep vein thrombosis (DVT) of right lower extremity Psychiatric care Essential hypertension DVT (deep venous thrombosis) DVT (deep venous thrombosis) Shortness of breath Surgical History S/P AAA repair Family History Other CAD (coronary artery disease) Dementia Diabetes Hyperlipidemia Hypertension Social History Smoking and tobacco/nicotine status: never used tobacco/nicotine Quit status (tobacco/nicotine): not considering quitting Second hand smoke exposure: No Alcohol intake: former Substance/Drug Use: former Course Vital Signs: Vital signs: Vital Signs Temperature 98.5 F 06/26/24 00:29 Pulse Rate 75 06/26/24 07:55 Respiratory Rate 18 06/26/24 05:58 Blood Pressure 107/71 06/26/24 07:55 Pulse Oximetry 100 06/26/24 07:55 Oxygen Delivery Me thod Room Air 06/26/24 06:24 MDM - Abdominal Pain Medical Decision Making CT personally reviewed and shows significant bladder distention and hydronephrosis bilaterally. However radiology read provide some details including stranding around the prostate concerning for prostatitis. Definitely has bladder outlet obstruction, no other findings on radiology read. Labs are remarkable for elevated white count of 15. Creatinine 2.9 but this appears to be baseline. Cortes has been placed patient has over 2 L of output. Will be monitored a little bit longer in the ER just to make sure there is no continued problems or issues with volume changes. There will be likely discharged with leg bag as he already has urology follow-up on Friday. Care assumed at change of shift CT reviewed. No significant abnormality at this time other than the urinary retention which has already been addressed, as well as prostatitis which has also been being treated with Bactrim. Patient is feeling much better. His kidney function is elevated and has chronically been elevated is slightly up suspect that is in part from the obstruction and also because he has been on Bactrim. Will have him stop the Bactrim because of its potential nephrotoxicity's and instead put him on Cipro 500 twice daily initial prescription written for 2 weeks. He has a follow-up with urology in 3 days he should keep that appointment he should also follow-up with his primary care doctor to recheck his renal function. Return if he has further problems or develops fever. Patient discharged home with a Cortes leg bag nurse instructed patient on its use. Lab Data 06/26/24 00:50 06/26/24 00:50 Labs/Radiology: Radiology Impressions Abdomen/Pelvis CT 06/26/24 03:45 IMPRESSION: 1. Urinary bladder is markedly dilated with severe bilateral hydroureteronephrosis. Findings are concerning for bladder outlet obstruction. Recommend catheterization. 2. Mild stranding about the prostate, concerning for prostatitis. This could potentially be the cause for outlet obstruction. Laboratory Results WBC 15.07 10^3/uL (3.29-11.43) H 06/26/24 00:50 RBC 4.30 10^6/uL (3.85-5.65) 06/26/24 00:50 Hgb 11.50 g/dL (11.27-16.99) 06/26/24 00:50 Hct 34.8 % (37-53) L 06/26/24 00:50 MCV 80.9 fl (82-101) L 06/26/24 00:50 MCH 26.7 pg (27-33) L 06/26/24 00:50 MCHC 33.0 g/dL (30-55) 06/26/24 00:50 RDW 13.7 % (12.1-15.1) 06/26/24 00:50 Plt Count 127 10^3/cmm (157-399) L 06/26/24 00:50 MPV 9.2 fL (7.4-10.4) 06/26/24 00:50 Neut % (Auto) 75.0 % 06/26/24 00:50 Lymph % (Auto) 11.9 % 06/26/24 00:50 [place] % (Auto) 10.6 % 06/26/24 00:50 Eos % (Auto) 1.3 % 06/26/24 00:50 Baso % (Auto) 0.3 % 06/26/24 00:50 Neut # (Auto) 11.30 10^3/uL (1.8-7.7) H 06/26/24 00:50 Lymph # (Auto) 1.8 10^3/uL (0.8-4.8) 06/26/24 00:50 [place] # (Auto) 1.6 10^3/uL (0.2-0.9) H 06/26/24 00:50 Eos # (Auto) 0.2 10^3/uL (0.0-0.8) 06/26/24 00:50 Baso # (Auto) 0.1 10^3/uL (0.0-0.1) 06/26/24 00:50 Nucleated RBC % (auto) 0 % 06/26/24 00:50 Nucleated RBCs # 0.0 /100WBC 06/26/24 00:50 PT 14.10 SECONDS (12.1-14.9) 06/26/24 00:50 INR 1.01 (0.8-1.2) 06/26/24 00:50 APTT 29.5 SECONDS (23.9-36.7) 06/26/24 00:50 Sodium 132 mmol/L (136-145) L 06/26/24 00:50 Potassium 4.9 mmol/L (3.5-5.1) 06/26/24 00:50 Chloride 101 mmol/L (98-107) 06/26/24 00:50 Carbon Dioxide 16 mmol/L (22-29) L 06/26/24 00:50 Anion Gap 19.9 (5-19) H 06/26/24 00:50 BUN 49 mg/dL (8-23) H 06/26/24 00:50 Creatinine 2.9 mg/dL (0.7-1.2) H 06/26/24 00:50 GFR Calculation 22.1 mL/min (90-130) L 06/26/24 00:50 Glucose 164 mg/dL (65-115) H 06/26/24 00:50 Calculated Osmolality 291 mOsm/kg (285-295) 06/26/24 00:50 Lactic Acid 1.6 mmol/L (0.5-2.2) 06/26/24 04:00 Calcium 9.9 mg/dL (8.5-10.5) 06/26/24 00:50 Magnesium 1.3 mg/dL (1.7-2.3) L 06/26/24 00:50 Lipase 87 U/L (13-60) H 06/26/24 00:50 Procalcitonin 0.27 ng/mL (0-0.5) 06/26/24 00:50 Urine Color Yellow (Yellow) 06/26/24 05:50 Urine Appearance Clear (CLEAR) 06/26/24 05:50 Urine pH 5.5 (5-7) 06/26/24 05:50 Ur Specific [place] 1.011 (1.005-1.030) 06/26/24 05:50 Urine Protein Negative (Negative) 06/26/24 05:50 Urine Glucose (UA) Negative (Normal) 06/26/24 05:50 Urine Ketones Negative (Negative) 06/26/24 05:50 Urine Blood Negative (Negative) 06/26/24 05:50 Urine Nitrate Negative (Negative) 06/26/24 05:50 Urine Bilirubin Negative (Negative) 06/26/24 05:50 Urine Urobilinogen 0.2 mg/dL (Negative) 06/26/24 05:50 Ur Leukocyte Esterase 1+ (Negative) A 06/26/24 05:50 Urine RBC 0-2 /hpf (0-2) 06/26/24 05:50 Urine WBC 11-20 /hpf (0-5) H 06/26/24 05:50 Ur Squamous Epith Cells 0-5 /hpf (0-5) 06/26/24 05:50 Amorphous Sediment Not Reportable 06/26/24 05:50 Urine Bacteria None seen /hpf (NONE) 06/26/24 05:50 Hyaline Casts 0.40 /lpf 06/26/24 05:50 Blood Type B Positive 06/26/24 04:02 Rho(D) Type Rh positive 06/26/24 04:02 Antibody Screen Negative 06/26/24 04:02 Discharge Plan Discharge Patient Disposition: Home Clinical Impression: Acute urinary retention, Acute prostatitis Condition: Stable Prescriptions: New tamsulosin 0.4 mg capsule 0.4 mg PO DAILY Qty: 30 0RF ciprofloxacin HCl [Cipro] 500 mg tablet 500 mg PO BID 14 Days Qty: 28 0RF No Action aspirin 81 mg tablet,chewable 81 mg PO DAILY aripiprazole [Abilify] 15 mg tablet 15 mg PO DAILY Qty: 30 11RF bupropion HCl [Wellbutrin XL] 150 mg tablet extended release 24 hr 150 mg PO QAM Qty: 30 11RF venlafaxine [Effexor XR] 150 mg capsule,extended release 24hr 150 mg PO DAILY Qty: 30 11RF Rx Instructions: take 1 tab (150mg) with 1 75mg venlafaxine [Effexor XR] 75 mg capsule,extended release 24hr 75 mg PO DAILY Qty: 30 11RF Rx Instructions: Total of 225 mg daily mirtazapine 45 mg tablet 45 mg PO .HS Qty: 30 11RF hydroxyzine HCl 50 mg tablet 50 mg PO QID PRN (Reason: insomnia) Qty: 120 11RF diazepam 5 mg tablet 5 mg PO BID PRN (Reason: anxiety) Qty: 60 4RF carvedilol 12.5 mg tablet 12.5 mg PO BID Qty: 60 4RF Rx Instructions: first 6 days take 1/2 twice daily, then increase to whole tab twice daily tramadol 50 mg tablet 50 mg PO BID PRN (Reason: headache) Qty: 20 0RF Januvia 100 mg tablet See Rx Instructions .ROUTE .COMPLEX Qty: 90 1RF Dose Instruction: TAKE ONE TABLET BY MOUTH EVERY DAY Rx Instructions: TAKE ONE TABLET BY MOUTH EVERY DAY metformin 500 mg tablet 500 mg PO DAILY Qty: 90 1RF allopurinol 100 mg tablet See Rx Instructions .ROUTE .COMPLEX Qty: 90 3RF Dose Instruction: TAKE ONE TABLET BY MOUTH EVERY DAY Rx Instructions: TAKE ONE TABLET BY MOUTH EVERY DAY glipizide 5 mg tablet See Rx Instructions .ROUTE .COMPLEX Qty: 540 1RF Dose Instruction: TAKE 2 TABLETS BY MOUTH THREE TIMES DAILY Rx Instructions: TAKE 2 TABLETS BY MOUTH THREE TIMES DAILY (DME) one touch ultra test srips See Rx Instructions .Route .MEDSUPPLY Qty: 100 0RF Rx Instructions: As directed (DME) glucose meter/supplies: lancets/pads/test strips See Rx Instructions .Route .MEDSUPPLY Qty: 50 0RF Rx Instructions: As directed lisinopril 20 mg tablet See Rx Instructions .ROUTE .COMPLEX Qty: 90 1RF Dose Instruction: TAKE 1 TABLET BY MOUTH DAILY *must be seen* Rx Instructions: TAKE 1 TABLET BY MOUTH DAILY *must be seen* Discharge Orders: Discharge ED (Routine); Ordered 06/26/24 Ordered By: Aguila Lima Referrals: Terrell Verdin MD [Primary Care Provider, Family Practice] Discharge Diet: Usual diet Discharge Activity: Increase activity as tolerated Patient Instructions: Opioid Safety, Pain Management Activity Restrictions/Additional Instructions: Thank you for choosing [facility] for your healthcare needs today. It is very important that you follow up as instructed or that you return to the Emergency Department should you have concerns or if your condition changes or worsens in any way. You were seen in the emergency room with complaints of abdominal pain and CT head urinary retention likely due to prostatitis. Cortes bladder catheter was placed. CT did not show any other acute pathology besides urinary retention. There is signs of prostatitis. Your renal function is somewhat elevated recommend that you stop the Bactrim and instead switch to ciprofloxacin 1 tablet twice a day. You should follow-up with your doctor in the next 4 to 5 days to recheck your kidney function. Keep your appointment with urology as planned. Print Language: Hungarian Sign Out Sign Out Data: Patient Sign Out occurred on 06/26/24 at 06:38. Patient's care was discussed, and care was transferred from Dakota Agarwal MD to Aguila Lima DO. Coding Level of Care Code ED Physical Therapy Instructor for Guerline Babb
[2024-06-26 06:02] LABS: Bilirubin Urine Negative (Negative); Blood Urine Negative (Negative); Glucose Urine UA Negative (Normal); Ketones Urine Negative (Negative); Leukocyte Esterase Urine 1+ (Negative); Nitrate Urine Negative (Negative); Protein Urine Negative (Negative); Specific Gravity, Urine 1.011 (1.005-1.030); Urine Appearance Clear (CLEAR); Urine Color Yellow (Yellow); Urobilinogen Urine 0.2 mg/dL (Negative); pH Urine 5.5 (5-7)
[2024-06-26 06:07] LABS: Add Urine Microscopic? YES; Bacteria Urine None Seen /hpf; RBC Urine 0-2 /hpf (0-2); Squamous Epithelial Cell Urine 0-5 /hpf (0-5)
[2024-06-26 06:24] VITALS: BP 100/70; PULSE 81; O2SAT 97
[2024-06-26 07:00] VITALS: BP 96/65; PULSE 76; O2SAT 100
[2024-06-26 07:55] VITALS: BP 107/71; PULSE 75; O2SAT 100
== END 2024-06-26 07:55 | disposition home or self-care (01) ==
PROVIDERS: Emergency Medicine; Emergency Provider Family Medicine; PCP Family Medicine
DX: N41.0 Acute prostatitis (principal); R33.8 Other retention of urine; Z79.82 Long term (current) use of aspirin; I10 Essential (primary) hypertension
CPT/HCPCS: 36415; 51702; 74176; 80048; 81001; 83605; 83690; 83735; 84145; 85025; 85610; 85730; 86850; 86900; 87040; 87150; 87205; 96374; 96375; 99285; J1171; J2405; J7030; J9999

== ENCOUNTER → 2024-07-09 10:00 | Outpatient (BNVA) | payer MEDICARE, SELFPAY | PROVIDERS: PCP Family Medicine; Visit Provider Family Medicine | DX: I10 Essential (primary) hypertension (principal) | CPT/HCPCS: 80053 ==

== ENCOUNTER → 2024-07-19 15:36 | Outpatient (BNVA) | payer MEDICARE, SELFPAY | PROVIDERS: PCP Family Medicine; Visit Provider Family Medicine | DX: I10 Essential (primary) hypertension (principal) | CPT/HCPCS: 80048 ==

== ENCOUNTER → 2024-08-17 12:25 | Outpatient (BNVA) | payer MEDICARE, SELFPAY | PROVIDERS: PCP Family Medicine; Visit Provider Family Medicine | DX: I10 Essential (primary) hypertension (principal); F41.1 Generalized anxiety disorder; E11.65 Type 2 diabetes mellitus with hyperglycemia | CPT/HCPCS: 80053; 85025 ==

== ENCOUNTER 2024-08-29 12:04 | Emergency (ER) | payer MEDICARE, SELFPAY ==
[2024-08-29 12:17] VITALS: BP 142/89; PULSE 105; RESP 16; TEMP 36.8; O2SAT 99; BMI 34.2
[2024-08-29 13:00] VITALS: BP 141/92; PULSE 86; O2SAT 98
--- NOTE | 2024-08-29 13:47 | ED_ITS ---
HPI - Male Genitourinary General: Chief complaint: Urogenital-Male Stated complaint: no urine output, has a cath Time Seen by Provider: 08/29/24 12:33 History of Present Illness: 63-year-old male with a history of prost ate cancer who presents to the emergency department with concerns about his urinary catheter. He underwent prostate surgery approximately 7 days ago and had a catheter placed due to difficulty urinating after the initial catheter removal. The patient reports that the catheter has been functioning normally until last night when he noticed a significant decrease in urine output. He typically fills two large bags of urine each night, but currently, the small bag attached to the catheter contains very little urine. The patient is experiencing bladder pressure and discomfort in the lower abdominal area, describing it as feeling like there's water or something and there's pressure in me. He denies any fever or chills. The patient's history reveals that following his prostate surgery, he initially had a catheter in place for an extended period. Approximately 6-7 days after the surgery, he returned to have the catheter removed. However, he was unable to urinate independently despite multiple attempts over a 40-minute period. As a result, the catheter was reinserted and has been in place for about a week prior to this presentation. The patient expresses confusion and mentions not getting enough sleep the previous night, which may be affecting his ability to clearly communicate his symptoms. Related Data Home Medications ?Medication ?Instructions ?Recorded ?Confirmed aspirin 81 mg chewable tablet 81 mg PO DAILY 12/25/20 08/17/24 Previous Rx's ?Medication ?Instructions ?Recorded allopurinol 100 mg tablet See Rx Instructions .Route 0 04/16/24 .COMPLEX #90 tabs glipizide 5 mg tablet See Rx Instructions .Route 0 04/16/24 .COMPLEX #540 tabs glucose meter/supplies: #50 ea 04/21/24 lancets/pads/test strips one touch ultra test srips #100 ea 04/21/24 aripiprazole 15 mg tablet (Abilify) 15 mg PO DAILY #30 tabs 04/28/24 bupropion HCl 150 mg 24 hr tablet, 150 mg PO QAM #30 t abs 04/28/24 extended release (Wellbutrin XL) hydroxyzine HCl 50 mg tablet 50 mg PO QID PRN insomnia #120 tabs 04/28/24 mirtazapine 45 mg tablet 45 mg PO .HS #30 tabs venlafaxine 150 mg 150 mg PO DAILY #30 caps capsule,extended release 24 hr (Effexor XR) venlafaxine 75 mg capsule,extended 75 mg PO DAILY #30 caps 04/28/24 release 24 hr (Effexor XR) lisinopril 20 mg tablet See Rx Instructions .Route 0 05/17/24 .COMPLEX #90 tabs carvedilol 12.5 mg tablet 12.5 mg PO BID #60 tabs 05/12 03/06 tamsulosin 0.4 mg capsule 0.4 mg PO DAILY #30 caps sitagliptin phosphate 100 mg See Rx Instructions .Rout e 07/19/24 tablet (Januvia) .COMPLEX #90 tabs canagliflozin 100 mg tablet 100 mg PO DAILY #30 tabs 0 08/17/24 (Invokana) diazepam 5 mg tablet 5 mg PO TID PRN anxiety 30 d ays 08/17/24 #90 tabs hydrocodone 10 mg-acetaminophen 1 tab PO BID PRN pain 10 days #20 08/17/24 325 mg tablet tabs Allergies Allergy/AdvReac Type Severity Reaction Status Date / Time No Known Allergies Allergy Verified 08/17/24 11:36 Review of Systems General: Reports: 10 or more systems reviewed and unremarkable except in HPI and below PFSH ED PFSH: Medical History (Updated 08/29/24 @ 13:52 by Bryson Yoder DO) Diabetes Deep vein thrombosis (DVT) of right lower extremity Psychiatric care Essential hypertension DVT (deep venous thrombosis) DVT (deep venous thrombosis) Shortness of breath Surgical History S/P AAA repair Family History Other CAD (coronary artery disease) Dementia Diabetes Hyperlipidemia Hypertension Social History Smoking and tobacco/nicotine status: never used tobacco/nicotine Quit status (tobacco/nicotine): not considering quitting Second hand smoke exposure: No Alcohol intake: former Substance/Drug Use: former Physical Exam Const: COMMON NORMALS: no acute distress, patient oriented x3, healthy appearing, alert and well nourished HENMT: COMMON NORMALS: normocephalic HEAD & SCALP: normocephalic Eye: COMMON NORMALS: EOMs intact bilaterally Neck/C-Spine: COMMON NORMALS: full ROM and supple Resp: COMMON NORMALS: normal respiratory effort, No retractions and clear to auscultation bilaterally AUSCULTATION: clear to auscultation bilaterally Cardio: COMMON NORMALS: regular rate, regular rhythm, No gallops present (Cardio) and No murmurs present (Cardio) RATE: regular rate RHYTHM: regular rhythm GI: COMMON NORMALS: Soft to palpation and non-tender PALPATION: Yes Soft to palpation Extremity: GENERAL: Yes normal exam except as noted Neuro: COMMON NORMALS: patient oriented x3 SENSORIUM/ORIENTATION: Yes alert Skin: COMMON NORMALS: no rashes or lesions noted GENERAL SKIN EXAM: no rashes or lesions noted Course Vital Signs: Vital signs: Vital Signs Temperature 98.2 F 08/29/24 12:17 Pulse Rate 89 08/29/24 14:01 Respiratory Rate 16 08/29/24 12:17 Blood Pressure 141/89 08/29/24 14:01 Pulse Oximetry 97 08/29/24 14:01 Oxygen Delivery Me thod Room Air 08/29/24 13:00 MDM - Male Medical Decision Making Patient underwent prostate surgery approximately 7 days ago and had a urinary catheter placed due to inability to void spontaneously. The catheter has been functioning normally until last night when drainage significantly decreased. Patient reports feeling bladder pressure and discomfort. There is concern for catheter obstruction or malposition. - Catheter flushing was successful resulting in some sediment into the bag and draining of the catheter. -Patient scheduled with urology in 10 days. Encouraged him to go to this follow-up as scheduled. - Counseled the patient on for signs of infection (fever, chills) Return precautions were discussed and the patient was discharged home in stable condition. No radiology studies performed this visit Discharge Plan Discharge Patient Disposition: Home Clinical Impression: Acute retention of urine Condition: Stable Prescriptions: No Action aspirin 81 mg tablet,chewable 81 mg PO DAILY aripiprazole [Abilify] 15 mg tablet 15 mg PO DAILY Qty: 30 11RF bupropion HCl [Wellbutrin XL] 150 mg tablet extended release 24 hr 150 mg PO QAM Qty: 30 11RF venlafaxine [Effexor XR] 150 mg capsule,extended release 24hr 150 mg PO DAILY Qty: 30 11RF Rx Instructions: take 1 tab (150mg) with 1 75mg venlafaxine [Effexor XR] 75 mg capsule,extended release 24hr 75 mg PO DAILY Qty: 30 11RF Rx Instructions: Total of 225 mg daily mirtazapine 45 mg tablet 45 mg PO .HS Qty: 30 11RF hydroxyzine HCl 50 mg tablet 50 mg PO QID PRN (Reason: insomnia) Qty: 120 11RF hydrocodone-acetaminophen 10-325 mg tablet 1 tab PO BID PRN (Reason: pain) 10 Days Qty: 20 0RF diazepam 5 mg tablet 5 mg PO TID PRN (Reason: anxiety) 30 Days Qty: 90 0RF Invokana 100 mg tablet 100 mg PO DAILY Qty: 30 5RF carvedilol 12.5 mg tablet 12.5 mg PO BID Qty: 60 4RF Rx Instructions: first 6 days take 1/2 twice daily, then increase to whole tab twice daily allopurinol 100 mg tablet See Rx Instructions .ROUTE .COMPLEX Qty: 90 3RF Dose Instruction: TAKE ONE TABLET BY MOUTH EVERY DAY Rx Instructions: TAKE ONE TABLET BY MOUTH EVERY DAY glipizide 5 mg tablet See Rx Instructions .ROUTE .COMPLEX Qty: 540 1RF Dose Instruction: TAKE 2 TABLETS BY MOUTH THREE TIMES DAILY Rx Instructions: TAKE 2 TABLETS BY MOUTH THREE TIMES DAILY (DME) one touch ultra test srips See Rx Instructions .Route .MEDSUPPLY Qty: 100 0RF Rx Instructions: As directed (DME) glucose meter/supplies: lancets/pads/test strips See Rx Instructions .Route .MEDSUPPLY Qty: 50 0RF Rx Instructions: As directed lisinopril 20 mg tablet See Rx Instructions .ROUTE .COMPLEX Qty: 90 1RF Dose Instruction: TAKE 1 TABLET BY MOUTH DAILY *must be seen* Rx Instructions: TAKE 1 TABLET BY MOUTH DAILY *must be seen* Januvia 100 mg tablet See Rx Instructions .ROUTE .COMPLEX Qty: 90 1RF Dose Instruction: TAKE ONE TABLET BY MOUTH EVERY DAY Rx Instructions: TAKE ONE TABLET BY MOUTH EVERY DAY tamsulosin 0.4 mg capsule 0.4 mg PO DAILY Qty: 30 0RF Discharge Orders: Discharge ED (Routine); Ordered 08/29/24 Ordered By: Bryson Law Referrals: Terrell Verdin MD [Primary Care Provider, [facility]] Discharge Diet: Advance as tolerated Discharge Activity: Resume usual activity Patient Instructions: Opioid Safety, Pain Management, Patient Portal & Yesenia Instructions Activity Restrictions/Additional Instructions: Please keep your urology follow-up as scheduled. Return to the emergency department with any new or worsening symptoms. Print Language: Spanish Coding Level of Care Code ED Gettering Filament Machine Operator for Guerline Babb
--- NOTE | 2024-08-29 13:50 | PC.NURSE ---
pt poe irrigated with sterile water and a 50cc flush syringe. Pt tolerated well, pt had 300cc urine out after flush. Noted that white appearing objects floating in urine. Dr. Yoder notified.
[2024-08-29 14:01] VITALS: BP 141/89; PULSE 89; O2SAT 97
== END 2024-08-29 14:02 | disposition home or self-care (01) ==
PROVIDERS: Emergency Provider General Practice; PCP Family Medicine
DX: R33.9 Retention of urine, unspecified (principal)
CPT/HCPCS: 99281

== ENCOUNTER 2024-09-16 12:22 | Observation (INO) | payer MEDICARE, SELFPAY ==
--- OUTSIDE RECORDS SUMMARY | 2024-08-10 03:00 | XMS_ITS ---
Author Organization [facility] Address [address] [place] [address] Care Team Providers Care Front End Application Developer Name Role Phone Terrell Verdin Primary Care Provider HECTOR Boswell Unavailable [phone] BEATRIZ QUINTANILLA Unavailable [phone] REASON FOR VISIT PVP @ [facility] Encounters Encounter Location Date Provider Diagnosis [facility] [address] [place] [facility] [place] [address] 08/10/2024 BEATRIZ QUINTANILLA Plan Of Treatment Next Appt Details Provider Name:Julian Page, 09/23/2024 08:20:00 AM, [address] [place], [address], Progress Notes * Gio FERRARO SDOB:1960 (63 yo M)Acc No.[id number]:08/10/2024 Patient: Gio CHARLES Provider: Rock QUINTANILLA MD :1960 A ge:63 Y S ex:Male Date:08/10/2024 Address:[address] [place], [place] [id number] Pcp:Terrell Verdin * Billing Information: * Visit Code: * Procedure Codes: * Electronic signature of AUST IN MD DWIGHT on 09/17/2024 at 03:45 PM CDT Sign off status: Pending * Provider: Rock QUINTANILLA MD Date: 08/10/2024 Generated for Andreea conklin/Juan/Yanelis on: 0 09/17/2024 03:45 PM CDT
--- OUTSIDE RECORDS SUMMARY | 2024-08-10 03:00 | XMS_ITS ---
Author Organization [facility] Address [address] [place] [address] Care Team Providers Care Head Filter Press Tender Name Role Phone Terrell Verdin Primary Care Provider HECTOR Boswell Unavailable [phone] BEATRIZ QUINTANILLA Unavailable [phone] REASON FOR VISIT PVP @ [facility] Encounters Encounter Location Date Provider Diagnosis [facility] [address] [place] [facility] [place] [address] 08/10/2024 BEATRIZ QUINTANILLA Plan Of Treatment Next Appt Details Provider Name:Julian Page, 09/23/2024 08:20:00 AM, [address] [place], [address], Progress Notes * Gio FERRARO SDOB:1960 (63 yo M)Acc No.[id number]:08/10/2024 Patient: Gio CHARLES Provider: Rock QUINTANILLA MD :1960 A ge:63 Y S ex:Male Date:08/10/2024 Address:[address] [place], [place] [phone] Pcp:Terrell Verdin * Billing Information: * Visit Code: * Procedure Codes: * Electronic signature of AUST IN MD DWIGHT on 09/16/2024 at 12:28 PM CDT Sign off status: Pending * Provider: Rock QUINTANILLA MD Date: 08/10/2024 Generated for Andreea conklin/Juan/Calvinitting on: 0 09/16/2024 12:28 PM CDT
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
--- NOTE | 2024-09-16 12:28 | ECG_ITS ---
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 Measurements Intervals [place] Rate: 75 P: 75 AL: 184 QRS: -44 QRSD: 146 T: -2 QT: 395 QTc: 442 Interpretive Statements SINUS RHYTHM LEFT AXIS DEVIATION [QRS AXIS < -30] RIGHT BUNDLE BRANCH BLOCK [120+ ms QRS DURATION, UPRIGHT V1, 40+ ms S IN I/aVL/V4/V5/V6] No previous ECG available for comparison Electronically Signed On 09-17-2024 13:52:12 CDT by Kim Leon M.D. [email or web address]
[2024-09-16 12:29] VITALS: BP 150/86; PULSE 81; RESP 20; TEMP 36.7; O2SAT 99
--- NOTE | 2024-09-16 12:29 | XR_ITS ---
WS: [id number] XR chest 1V portable [id number] REASON FOR EXAM: dyspnea/cough FINDINGS: The chest is unchanged compared to 02/26/2023. Moderate tortuosity and ectasia of the thoracic aorta with normal heart size. Calcified granulomatous disease bilaterally. Eventration of both hemidiaphragms. No acute pulmonary parenchymal or pleural abnormality. 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 XR/XR chest 1V portable [id number] IMPRESSION: Stable chest without acute abnormality.
[2024-09-16 12:47] LABS: Hematocrit 42.7 % (37-53); Hemoglobin 14.00 g/dL (11.27-16.99); Mean Corpuscular HGB Conc 32.8 g/dL (30-55); Mean Corpuscular Hemoglobin 25.1 pg (27-33); Mean Corpuscular Volume 76.5 fl (82-101); Nucleated Red Blood Cells % 0 %; Platelet Count 151 10^3/cmm (157-399); Red Blood Count 5.58 10^6/uL (3.85-5.65); White Blood Count 10.90 10^3/uL (3.29-11.43)
[2024-09-16 12:51] LABS: Ketone (Acetest) Serum Negative (Negative)
[2024-09-16 12:56] LABS: Glucose Urine UA 3+ (Normal); Nitrate Urine Positive (Negative); Specific Gravity, Urine 1.022 (1.005-1.030)
[2024-09-16 13:02] LABS: Alanine Aminotransferase 10 U/L (0-41); Albumin Level 4.4 g/dL (3.5-5.2); Alkaline Phosphatase 171 U/L (40-130); Anion Gap 20.7 (5-19); Aspartate Amino Transferase 11 U/L (0-40); Blood Urea Nitrogen 37 mg/dL (8-23); Calcium 10.1 mg/dL (8.5-10.5); Carbon Dioxide 20 mmol/L (22-29); Chloride 89 mmol/L (98-107); Creatinine Clr Calc Pharmacy 37.2208; Globulin 3.9 g/dL (1.3-4.6); Osmolality Calculated 296 mOsm/kg (285-295); Potassium 4.7 mmol/L (3.5-5.1); Sodium 125 mmol/L (136-145); Total Protein 8.3 g/dL (6.6-8.7)
[2024-09-16 13:02] LABS: Add Urine Microscopic? YES
[2024-09-16 13:08] LABS: Glucose 594 mg/dL (65-115)
[2024-09-16] MEDS: insulin regular-human 100 units/1 mL 10 UNIT IVP (13:21)
--- NOTE | 2024-09-16 13:22 | W.ED.RECABL ---
HPI - Recheck/Abnormal Lab/Rx General: Chief Complaint: Recheck/Abnormal Lab/Rx Stated Complaint: weakness - hyperglycemic Time Seen by Provider: 09/16/24 12:25 History of Present Illness: 63-year-old male presents emergency room with elevated blood sugars. He has had elevated blood sugar last several days he tried several different things to get them down. He was recently started on canagliflozin he was taken off of metformin because of issues with his kidney function. He is also on glipizide. And his sitagliptin. He has a Cortes in place due to BPH he is following up with urology for this. Denies any fever sweats chills or chest pain at this time. Related Data Home Medications ?Medication ?Instructions ?Recorded ?Confirmed aspirin 81 mg chewable tablet 81 mg PO DAILY 12/25/20 09/14/24 Previous Rx's ?Medication ?Instructions ?Recorded allopurinol 100 mg tablet See Rx Instructions .Route 04/16/24 .COMPLEX #90 tabs glipizide 5 mg tablet See Rx Instructions .Route 04/16/24 .COMPLEX #540 tabs glucose meter/supplies: #50 ea 04/21/24 lancets/pads/test strips one touch ultra test srips #100 ea 04/21/24 aripiprazole 15 mg tablet (Abilify) 15 mg PO DAILY #30 tabs 04/28/24 bupropion HCl 150 mg 24 hr tablet, 150 mg PO QAM #30 tabs 04/28/24 extended release (Wellbutrin XL) hydroxyzine HCl 50 mg tablet 50 mg PO QID PRN insomnia #120 tabs 04/28/24 mirtazapine 45 mg tablet 45 mg PO .HS #30 tabs 04/28/24 venlafaxine 150 mg 150 mg PO DAILY #30 caps 04/28/24 capsule,extended release 24 hr (Effexor XR) venlafaxine 75 mg capsule,extended 75 mg PO DAILY #30 caps 04/28/24 release 24 hr (Effexor XR) lisinopril 20 mg tablet See Rx Instructions .Route 05/17/24 .COMPLEX #90 tabs carvedilol 12.5 mg tablet 12.5 mg PO BID #60 tabs 05/31/24 tamsulosin 0.4 mg capsule 0.4 mg PO DAILY #30 caps 05/17/25 sitagliptin phosphate 100 mg See Rx Instructions .Route 07/19/24 tablet (Januvia) .COMPLEX #90 tabs canagliflozin 100 mg tablet 100 mg PO DAILY #30 tabs 08/17/24 (Invokana) diazepam 5 mg tablet 5 mg PO TID PRN anxiety 30 days 08/17/24 #90 tabs Allergies Allergy/AdvReac Type Severity Reaction Status Date / Time No Known Allergies Allergy Verified 09/14/24 11:42 Review of Systems Const: Denies: fever(s) or chills Card: Denies: chest pain Resp: Denies: dyspnea GI: Denies: abdominal pain : Denies: dysuria, urinary frequency or urinary urgency Musc: Denies: neck pain or back pain Skin/Breast: Denies: rash PFSH ED PFSH: Medical History Diabetes Deep vein thrombosis (DVT) of right lower extremity Psychiatric care Essential hypertension DVT (deep venous thrombosis) DVT (deep venous thrombosis) Shortness of breath Surgical History S/P AAA repair Family History Other CAD (coronary artery disease) Dementia Diabetes Hyperlipidemia Hypertension Social History Smoking and tobacco/nicotine status: light tobacco/nicotine user cigars Cigars smoked per week: 1 Years smoked cigars: 10 Cigar details: 1 x month Quit status (tobacco/nicotine): not considering quitting Second hand smoke exposure: No Alcohol intake: former Substance/Drug Use: former Physical Exam Const: GENERAL APPEARANCE: cooperative ORIENTATION/CONSCIOUSNESS: Yes awake, Yes oriented to person, Yes oriented to place and Yes oriented to time HENMT: COMMON NORMALS: normocephalic, atraumatic and hearing grossly normal bilaterally HEAD & SCALP: normocephalic and atraumatic Resp: COMMON NORMALS: normal respiratory effort, No retractions, No use of accessory muscles and clear to auscultation bilaterally AUSCULTATION: clear to auscultation bilaterally Cardio: COMMON NORMALS: regular rate, regular rhythm and No murmurs present (Cardio) RATE: regular rate RHYTHM: regular rhythm GI: COMMON NORMALS: Soft to palpation and No hepatosplenomegaly present AUSCULTATION: Yes normoactive bowel sounds PALPATION: Yes Soft to palpation, No Tenderness to palpation present (GI), No Guarding due to palpation present (GI) and Yes No hepatosplenomegaly present Extremity: COMMON NORMALS: normal to inspection, capillary refill normal, no clubbing, cyanosis or edema, no calf tenderness and no pedal edema Neuro: SENSORIUM/ORIENTATION: Yes oriented to person, Yes oriented to place and Yes oriented to time Skin: COMMON NORMALS: no rashes or lesions noted GENERAL SKIN EXAM: no rashes or lesions noted Course Vital Signs: Vital signs: Vital Signs Temperature 98.1 F 09/16/24 12:29 Pulse Rate 81 09/16/24 12: Respiratory Rate 20 H 09/16/24 12:29 Blood Pressure 150/86 09/16/24 12:29 Pulse Oximetry 99 09/16/24 12:29 MDM - Recheck/Abnormal Lab/Rx Medical Records I reviewed the patient's medical records. Lab Data I reviewed the patient's lab results. 09/16/24 12:10 09/16/24 12:10 Radiology Impressions Chest X-Ray 09/16/24 12:29 IMPRESSION: Stable chest without acute abnormality. Laboratory Results WBC 10.90 10^3/uL (3.29-11.43) 09/16/24 12:10 RBC 5.58 10^6/uL (3.85-5.65) 09/16/24 12:10 Hgb 14.00 g/dL (11.27-16.99) 09/16/24 12:10 Hct 42.7 % (37-53) 09/16/24 12:10 MCV 76.5 fl (82-101) L 09/16/24 12:10 MCH 25.1 pg (27-33) L 09/16/24 12:10 MCHC 32.8 g/dL (30-55) 09/16/24 12:10 RDW 13.0 % (12.1-15.1) 09/16/24 12:10 Plt Count 151 10^3/cmm (157-399) L 09/16/24 12:10 MPV 9.4 fL (7.4-10.4) 09/16/24 12:10 Neut % (Auto) 77.2 % 09/16/24 12:10 Lymph % (Auto) 14.1 % 09/16/24 12:10 Sharp % (Auto) 5.0 % 09/16/24 12:10 Eos % (Auto) 2.0 % 09/16/24 12:10 Baso % (Auto) 0.6 % 09/16/24 12:10 Neut # (Auto) 8.41 10^3/uL (1.8-7.7) H 09/16/24 12:10 Lymph # (Auto) 1.5 10^3/uL (0.8-4.8) 09/16/24 12:10 Sharp # (Auto) 0.6 10^3/uL (0.2-0.9) 09/16/24 12:10 Eos # (Auto) 0.2 10^3/uL (0.0-0.8) 09/16/24 12:10 Baso # (Auto) 0.1 10^3/uL (0.0-0.1) 09/16/24 12:10 Nucleated RBC % (auto) 0 % 09/16/24 12:10 Nucleated RBCs # 0.0 /100WBC 09/16/24 12:10 Sodium 125 mmol/L (136-145) L 09/16/24 12:10 Potassium 4.7 mmol/L (3.5-5.1) 09/16/24 12:10 Chloride 89 mmol/L (98-107) L 09/16/24 12:10 Carbon Dioxide 20 mmol/L (22-29) L 09/16/24 12:10 Anion Gap 20.7 (5-19) H 09/16/24 12:10 BUN 37 mg/dL (8-23) H 09/16/24 12:10 Creatinine 2.3 mg/dL (0.7-1.2) H 09/16/24 12:10 GFR Calculation 28.9 mL/min (90-130) L 09/16/24 12:10 Glucose 594 mg/dL (65-115) H* 09/16/24 12:10 POC Glucose 562 mg/dL (70-110) H* 09/16/24 12:34 Calculated Osmolality 296 mOsm/kg (285-295) H 09/16/24 12:10 Calcium 10.1 mg/dL (8.5-10.5) 09/16/24 12:10 Total Bilirubin 0.5 mg/dL (0.15-1.2) 09/16/24 12:10 AST 11 U/L (0-40) 09/16/24 12:10 ALT 10 U/L (0-41) 09/16/24 12:10 Alkaline Phosphatase 171 U/L (40-130) H 09/16/24 12:10 Total Protein 8.3 g/dL (6.6-8.7) 09/16/24 12:10 Albumin 4.4 g/dL (3.5-5.2) 09/16/24 12:10 Globulin 3.9 g/dL (1.3-4.6) 09/16/24 12:10 Urine Color Yellow (Yellow) 09/16/24 12:42 Urine Appearance Clear (CLEAR) 09/16/24 12:42 Urine pH 6.5 (5-7) 09/16/24 12:42 Ur Specific [place] 1.022 (1.005-1.030) 09/16/24 12:42 Urine Protein Negative (Negative) 09/16/24 12:42 Urine Glucose (UA) 3+ (Normal) H 09/16/24 12:42 Urine Ketones Negative (Negative) 09/16/24 12:42 Urine Blood 1+ (Negative) A 09/16/24 12:42 Urine Nitrate Positive (Negative) A 09/16/24 12:42 Urine Bilirubin Negative (Negative) 09/16/24 12:42 Urine Urobilinogen 0.2 mg/dL (Negative) 09/16/24 12:42 Ur Leukocyte Esterase 2+ (Negative) A 09/16/24 12:42 Urine RBC 11-20 /hpf (0-2) H 09/16/24 12:42 Urine WBC >100 /hpf (0-5) H 09/16/24 12:42 Ur Squamous Epith Cells 0-5 /hpf (0-5) 09/16/24 12:42 Amorphous Sediment Not Reportable 09/16/24 12:42 Urine Bacteria Trace /hpf (NONE) 09/16/24 12:42 Hyaline Casts 0.40 /lpf 09/16/24 12:42 Serum Ketones Negative (Negative) 09/16/24 12:10 Discharge Plan Discharge Patient Disposition: Placed in Observation Clinical Impression: Hyperglycemia, Diabetes, Cystitis, BPH with urinary obstruction Coding Level of Care Code ED Embedded Case Manager for Guerline Babb
[2024-09-16 13:58] LABS: ABG PCO2 27.5 mmHg (35-45); ABG PH Result 7.44 (7.35-7.45); Alveolar-Arterial Oxygen Gradi 3.4 mmHg (5-10); Arterial Blood Gas Hematocrit 40.2 % (42-52); Blood Gas Operator Identificat AMH; Blood Gas Sample Site Brachial, left; Blood Gas Sample Type Arterial; Carboxyhemoglobin 1.5 %THgb (0.4-20.1); Glucose Level-ABG 362.0 mg/dL (70-115); HCO3 ABG 18.8 mmol/L (22-26); Ionized Calcium Level - ABG 1.3 mmol/L (1.1-1.4); Methemoglobin 0.9 % (0.4-1.5); Oxygen Saturation ABG 98.5; PO2 ABG 88.6 mmHg (80.0-100.0); PO2 FiO2 Ratio Arterial Blood 421; Potassium Level - ABG 4.0 mmol/L (3.5-5.0); Sodium Level - ABG 131.0 mmol/L (131-143)
[2024-09-16] MEDS: cefTRIAXone 1,000 mg SDV 1000 MG IVP (14:08)
[2024-09-16] MEDS: LORazepam 1 MG/0.5 ML injection 2 MG IVP (14:51)
[2024-09-16 15:28] VITALS: BP 134/103; PULSE 78; O2SAT 97
[2024-09-16 15:45] VITALS: BP 119/84; PULSE 80; O2SAT 97
[2024-09-16 18:00] VITALS: BMI 32.6
--- NOTE | 2024-09-16 18:44 | P.HP_ITS ---
Providers/Chief Complaint 2 Admitting Physician: Dioni Negrete MD Primary Care Provider: Terrell Verdin MD Chief Complaint: weakness - hyperglycemic History of Present Illness As per the previous chart and the patient: Gio Ferraro is a 63 year old male with past medical history of essential hypertension, deep venous thrombosis s/p Eliquis followed with a primary physician resolved and off anticoagulation since 2022, psychiatric care, uncontrolled diabetes mellitus without insulin use, urinary retention s/p indwelling catheter secondary to BPH following with urology. Came with hyperglycemia without any symptoms and found to have UTI. The patient did not report any fever chills nausea vomiting abdominal pain or any other symptoms. Review of system was unremarkable. Patient did not report any lower leg swellings. The urinary catheter was recently changed without any complications. No hematuria. The patient has been taking canagliflozin which could be the reason for UTI. Review of system unremarkable Review of Systems 2 General: Reports: 10 or more systems reviewed and unremarkable except in HPI and below Medications/Allergies Home Medications ?Medication ?Instructions ?Recorded ?Confirmed ?Last Taken ?Type aspirin 81 mg chewable tablet 81 mg PO DAILY 12/25/20 09/16/24 Unknown History allopurinol 100 mg tablet See Rx Instructions .Route 0 04/16/24 09/16/24 09/16/24 Rx .COMPLEX #90 tabs glipizide 5 mg tablet See Rx Instructions .Route 0 04/16/24 09/16/24 09/16/24 Rx .COMPLEX #540 tabs glucose meter/supplies: #50 ea 04/21/24 09/16/24 Unk nown Rx lancets/pads/test strips one touch ultra test srips #100 ea 04/21/24 09/16/24 U nknown Rx aripiprazole 15 mg tablet (Abilify) 15 mg PO DAILY #30 tabs 04/28/24 09/16/24 09/16/24 Rx bupropion HCl 150 mg 24 hr tablet, 150 mg PO QAM #30 t abs 04/28/24 09/16/24 09/16/24 Rx extended release (Wellbutrin XL) hydroxyzine HCl 50 mg tablet 50 mg PO QID PRN insomnia #120 tabs 04/28/24 09/16/24 09/15/24 20:00 Rx mirtazapine 45 mg tablet 45 mg PO .HS #30 tabs 03/19/ 25 08/07/25 08/06/25 20:00 Rx venlafaxine 150 mg 150 mg PO DAILY #30 caps 09/16/24 09/16/24 Rx capsule,extended release 24 hr (Effexor XR) venlafaxine 75 mg capsule,extended 75 mg PO DAILY #30 caps 04/28/24 09/16/24 09/16/24 Rx release 24 hr (Effexor XR) carvedilol 12.5 mg tablet 12.5 mg PO BID #60 tabs 05/1209/16/24 09/16/24 08:00 Rx tamsulosin 0.4 mg capsule 0.4 mg PO DAILY #30 caps 09/16/24 09/15/24 20:00 Rx sitagliptin phosphate 100 mg See Rx Instructions .Rout e 07/19/24 09/16/24 09/16/24 Rx tablet (Januvia) .COMPLEX #90 tabs canagliflozin 100 mg tablet 100 mg PO DAILY #30 tabs 0 08/17/24 09/16/24 09/16/24 Rx (Invokana) diazepam 5 mg tablet 5 mg PO TID PRN anxiety 30 d ays 08/17/24 09/16/24 09/16/24 08:00 Rx #90 tabs Allergies Allergy/AdvReac Type Severity Reaction Status Date / Time No Known Allergies Allergy Verified 09/14/24 11:42 PFSH Acute 2 PFSH: Medical History (Updated 09/16/24 @ 19:06 by Dioni Negrete MD) Obesity Diabetes Deep vein thrombosis (DVT) of right lower extremity Psychiatric care Essential hypertension DVT (deep venous thrombosis) DVT (deep venous thrombosis) Shortness of breath Surgical History S/P AAA repair Family History Other CAD (coronary artery disease) Dementia Diabetes Hyperlipidemia Hypertension Social History Smoking and tobacco/nicotine status: light tobacco/nicotine user cigars Cigars smoked per week: 1 Years smoked cigars: 10 Cigar details: 1 x month Quit status (tobacco/nicotine): not considering quitting Second hand smoke exposure: No Alcohol intake: former Substance/Drug Use: former Vitals/I&O/Wt Last Vital Signs Temp 98.1 F 09/16/24 12:29 Pulse 80 09/16/24 15:45 Resp 20 H 09/16/24 12:29 BP 119/84 09/16/24 15:45 Pulse Ox 97 09/16/24 15:45 09/16/24 09/16/24 09/16/24 06:59 14:59 22:59 Intake Total 1000 / 1000 Balance 1000 / 1000 Weight last 48 hrs Weight 97.522 kg Physical Exam 2 Narrative: General: Alert oriented x3, patient seen lying comfortably HEENT: Normocephalic, atraumatic, EOMI, breathing at room air Cardio: Regular rate rhythm, normal S1-S2, no murmurs rubs gallops, JVD normal Respiratory: Good bilateral air entry, no wheezes no rhonchi appreciated GI: Abdomen soft, nontender, nondistended, normoactive bowel sounds present all 4 quadrants, : having indwelling urinary catheter, clear urine color Neuro: Cranial nerves II to XII intact, strength 5/5, sensation 5/5, no gross neurological deficit Behavior: Appropriate and cooperative Extremities: Pulses 2+, no edema, no cyanosis Skin: Visible skin intact, no rashes Data 09/16/24 12:10 09/16/24 12:10 Micro: Microbiology 09/16/24 14:06 Blood Culture - Preliminary Blood SPECIMEN COLLECTED 09/16/24 14:03 Blood Culture - Preliminary Blood SPECIMEN COLLECTED A&P Assessment and plan 1. UTI (urinary tract infection): 2. Uncontrolled diabetes mellitus with hyperglycemia: 3. BPH with urinary obstruction: 4. Social anxiety disorder: Plan: - patient is on canagliflozin, to hold it since it can lead to UTI and to - continue on insulin 5 units lantus for ocean transportation intermediary control and sliding scale with hypoglycemia protocol. - 1 L of fluid bolus stat. - monitor electrolytes and correction accordingly, (patient having pseudo hyponatremia secondary to hyperglycemia) - ceftriaxone 1gm to continue for the UTI/cystitis considering pt is having neutrophilia with high normal WBCs - Reconciliation of antidiabetic medications is required based upon patient kidney functions and UTI? - Monitor urinary output and maintain urinary catheter care - continue tamsulosin for BPH - outpatient endocrinology and urologist follow up - VTE prophylaxis: Heparin 3 times daily Patient care and management has been discussed with his current condition and agreed with the plan of care without any language barrier. Patient goals of life/CODE STATUS has been discussed and the patient preferred to be full code I have reviewed patient chart independently including his chest x-ray and EKG. PDMP PDMP Reviewed: Not Reviewed Attestations 2 Medical Necessity Statement*: the patient will stay to be observed for further management Time Spent in Patient Care: Greater than 35 minutes (>than 50% of time spent in counselling and/or direct pt care on unit) . Critical Care Time: Critical Care Time (min): 45 Other Attestations: This documentation was created by [employer] doughnut glazier software. Every effort was made to ensure accuracy of doughnut glazier.? Any obvious errors or omissions should be clarified with the author of the document. Coding Level of Care Code 59695 Diagnoses UTI (urinary tract infection) N39.0 Uncontrolled diabetes mellitus with hyperglycemia E11.65 BPH with urinary obstruction N40.1; N13.8 Social anxiety disorder F40.10
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
[2024-09-16] MEDS: heparin 5,000 unit/mL INJ 1 mL 5000 UNIT SUBCUT (19:42)
[2024-09-16 20:00] VITALS: BP 114/79; PULSE 97; RESP 16; TEMP 36.6; O2SAT 96
[2024-09-16] MEDS: insulin glargine 100 units/1 mL 5 UNIT SUBCUT (20:52)
[2024-09-17] VITALS: BP 112/73; PULSE 78; RESP 16; TEMP 36.4; O2SAT 96
[2024-09-17] MEDS: heparin 5,000 unit/mL INJ 1 mL 5000 UNIT SUBCUT ×2 (01:19→10:56)
[2024-09-17 04:00] VITALS: BP 127/81; PULSE 78; RESP 16; TEMP 36.6; O2SAT 95
[2024-09-17 05:41] LABS: Hematocrit 34.9 % (37-53); Hemoglobin 11.20 g/dL (11.27-16.99); Mean Corpuscular HGB Conc 32.1 g/dL (30-55); Mean Corpuscular Hemoglobin 25.0 pg (27-33); Mean Corpuscular Volume 77.9 fl (82-101); Nucleated Red Blood Cells % 0 %; Platelet Count 114 10^3/cmm (157-399); Red Blood Count 4.48 10^6/uL (3.85-5.65); White Blood Count 9.50 10^3/uL (3.29-11.43)
[2024-09-17 06:04] LABS: Alanine Aminotransferase 8 U/L (0-41); Albumin Level 3.5 g/dL (3.5-5.2); Alkaline Phosphatase 117 U/L (40-130); Anion Gap 14.1 (5-19); Aspartate Amino Transferase 12 U/L (0-40); Blood Urea Nitrogen 36 mg/dL (8-23); Calcium 8.9 mg/dL (8.5-10.5); Carbon Dioxide 22 mmol/L (22-29); Chloride 101 mmol/L (98-107); Creatinine Clr Calc Pharmacy 37.8115; Globulin 2.8 g/dL (1.3-4.6); Glucose 239 mg/dL (65-115); Magnesium 1.8 mg/dL (1.7-2.3); Osmolality Calculated 292 mOsm/kg (285-295); Potassium 4.1 mmol/L (3.5-5.1); Sodium 133 mmol/L (136-145); Total Protein 6.3 g/dL (6.6-8.7)
[2024-09-17 08:00] VITALS: BP 135/81; PULSE 87; RESP 16; TEMP 36.5; O2SAT 99
--- NOTE | 2024-09-17 08:35 | P.DS_ITS ---
Discharge Providers Date of Admission: 09/16/24 15:29 Date of Discharge: September 17, 2024 Attending Provider at Admission: Dioni Negrete MD Attending Provider at Discharge: Dioni Negrete MD Primary Care Provider: Terrell Verdin MD Diagnoses at Discharge Discharge Diagnosis 1. UTI (urinary tract infection): 2. Uncontrolled diabetes mellitus with hyperglycemia: 3. BPH with urinary obstruction: 4. Social anxiety disorder: Reason for Visit Reason for Visit: weakness - hyperglycemic Brief History: As per the previous chart and the patient: Gio Ferraro is a 63 year old male with past medical history of essential hypertension, deep venous thrombosis s/p Eliquis followed with a primary physician resolved and off anticoagulation since 2022, psychiatric care, uncontrolled diabetes mellitus without insulin use, urinary retention s/p indwelling catheter secondary to BPH following with urology. Came with hyperglycemia without any symptoms and found to have UTI. The patient has been taking canagliflozin which could be the reason for UTI. Hospital Course Hospital Course The patient was started on ceftriaxone and canagliflozin was held. The patient was started on insulin Lantus 5 units and sliding scale that improved his hyperglycemia. The patient medications were reconciled and canagliflozin to be held until seen by the primary care physician as outpatient. To continue follow-up with urology as outpatient for BPH and urinary catheter care. Patient to be discharged on ciprofloxacin for further 7 days course for UTI Physical Exam Narrative: General: Alert oriented x3, patient seen lying comfortably HEENT: Normocephalic, atraumatic, EOMI, breathing at room air Cardio: Regular rate rhythm, normal S1-S2, no murmurs rubs gallops, JVD normal Respiratory: Good bilateral air entry, no wheezes no rhonchi appreciated GI: Abdomen soft, nontender, nondistended, normoactive bowel sounds present all 4 quadrants, : having indwelling urinary catheter, clear urine color Neuro: Cranial nerves II to XII intact, strength 5/5, sensation 5/5, no gross neurological deficit Behavior: Appropriate and cooperative Extremities: Pulses 2+, no edema, no cyanosis Skin: Visible skin intact, no rashes Discharge Data Studies Completed and Pending Completed Studies During Hospitalization Category Date Time Status XR chest 1V portable [id number] Stat Exams 09/16/24 12:29 Completed Pending at discharge Category Date Time Status Blood Culture Stat Lab 09/16/24 14:06 Results Urine Culture Stat Lab 09/16/24 12:42 Received Radiology Impressions Chest X-Ray 09/16/24 12:29 IMPRESSION: Stable chest without acute abnormality. Laboratory Results WBC 9.50 10^3/uL (3.29-11.43) 09/17/24 05:20 RBC 4.48 10^6/uL (3.85-5.65) 09/17/24 05:20 Hgb 11.20 g/dL (11.27-16.99) L 09/17/24 05:20 Hct 34.9 % (37-53) L 09/17/24 05:20 MCV 77.9 fl (82-101) L 09/17/24 05:20 MCH 25.0 pg (27-33) L 09/17/24 05:20 MCHC 32.1 g/dL (30-55) 09/17/24 05:20 RDW 13.2 % (12.1-15.1) 09/17/24 05:20 Plt Count 114 10^3/cmm (157-399) L 09/17/24 05:20 MPV 9.4 fL (7.4-10.4) 09/17/24 05:20 Neut % (Auto) 58.7 % 09/17/24 05:20 Lymph % (Auto) 29.2 % 09/17/24 05:20 Jackson % (Auto) 6.6 % 09/17/24 05:20 Eos % (Auto) 3.8 % 09/17/24 05:20 Baso % (Auto) 0.6 % 09/17/24 05:20 Neut # (Auto) 5.58 10^3/uL (1.8-7.7) 09/17/24 05:20 Lymph # (Auto) 2.8 10^3/uL (0.8-4.8) 09/17/24 05:20 Jackson # (Auto) 0.6 10^3/uL (0.2-0.9) 09/17/24 05:20 Eos # (Auto) 0.4 10^3/uL (0.0-0.8) 09/17/24 05:20 Baso # (Auto) 0.1 10^3/uL (0.0-0.1) 09/17/24 05:20 Nucleated RBC % (auto) 0 % 09/17/24 05:20 Nucleated RBCs # 0.0 /100WBC 09/17/24 05:20 Specimen Type Arterial 09/16/24 13:47 Sample Site Brachial, left 09/16/24 13:47 ABG pH 7.44 (7.35-7.45) 09/16/24 13:47 ABG pCO2 27.5 mmHg (35-45) L 09/16/24 13:47 ABG pO2 88.6 mmHg (80.0-100.0) 09/16/24 13:47 ABG PO2/FiO2 Ratio 421 09/16/24 13:47 ABG HCO3 18.8 mmol/L (22-26) L 09/16/24 13:47 ABG O2 Saturation 98.5 09/16/24 13:47 ABG Base Excess -4.0 mmol/L (-2.0-2.0) L 09/16/24 13:47 Stewart Test N/a 09/16/24 13:47 A-a O2 Gradient 3.4 mmHg (5-10) L 09/16/24 13:47 Hematocrit 40.2 % (42-52) L 09/16/24 13:47 Hgb O2 Saturation 96.2 % (95-100) 09/16/24 13:47 Carboxyhemoglobin 1.5 %THgb (0.4-20.1) 09/16/24 13:47 Methemoglobin 0.9 % (0.4-1.5) 09/16/24 13:47 Total Hemoglobin 13.1 g/dL (14-18) L 09/16/24 13:47 Sodium 131.0 mmol/L (131-143) 09/16/24 13:47 Potassium 4.0 mmol/L (3.5-5.0) 09/16/24 13:47 Glucose 362.0 mg/dL (70-115) H 09/16/24 13:47 Ionized Calcium 1.3 mmol/L (1.1-1.4) 09/16/24 13:47 O2 Delivery Device Room air 09/16/24 13:47 FiO2 21.0 % 09/16/24 13:47 Grassland Conservationist ID Amh 09/16/24 13:47 Sodium 133 mmol/L (136-145) L 09/17/24 05:20 Potassium 4.1 mmol/L (3.5-5.1) 09/17/24 05:20 Chloride 101 mmol/L (98-107) 09/17/24 05:20 Carbon Dioxide 22 mmol/L (22-29) 09/17/24 05:20 Anion Gap 14.1 (5-19) 09/17/24 05:20 BUN 36 mg/dL (8-23) H 09/17/24 05:20 Creatinine 2.3 mg/dL (0.7-1.2) H 09/17/24 05:20 GFR Calculation 28.9 mL/min (90-130) L 09/17/24 05:20 Glucose 239 mg/dL (65-115) H 09/17/24 05:20 POC Glucose 249 mg/dL (70-110) H 09/17/24 06:22 Calculated Osmolality 292 mOsm/kg (285-295) 09/17/24 05:20 Calcium 8.9 mg/dL (8.5-10.5) 09/17/24 05:20 Magnesium 1.8 mg/dL (1.7-2.3) 09/17/24 05:20 Total Bilirubin 0.3 mg/dL (0.15-1.2) 09/17/24 05:20 AST 12 U/L (0-40) 09/17/24 05:20 ALT 8 U/L (0-41) 09/17/24 05:20 Alkaline Phosphatase 117 U/L (40-130) 09/17/24 05:20 Total Protein 6.3 g/dL (6.6-8.7) L D 09/17/24 05:20 Albumin 3.5 g/dL (3.5-5.2) 09/17/24 05:20 Globulin 2.8 g/dL (1.3-4.6) 09/17/24 05:20 Urine Color Yellow (Yellow) 09/16/24 12:42 Urine Appearance Clear (CLEAR) 09/16/24 12:42 Urine pH 6.5 (5-7) 09/16/24 12:42 Ur Specific [place] 1.022 (1.005-1.030) 09/16/24 12:42 Urine Protein Negative (Negative) 09/16/24 12:42 Urine Glucose (UA) 3+ (Normal) H 09/16/24 12:42 Urine Ketones Negative (Negative) 09/16/24 12:42 Urine Blood 1+ (Negative) A 09/16/24 12:42 Urine Nitrate Positive (Negative) A 09/16/24 12:42 Urine Bilirubin Negative (Negative) 09/16/24 12:42 Urine Urobilinogen 0.2 mg/dL (Negative) 09/16/24 12:42 Ur Leukocyte Esterase 2+ (Negative) A 09/16/24 12:42 Urine RBC 11-20 /hpf (0-2) H 09/16/24 12:42 Urine WBC >100 /hpf (0-5) H 09/16/24 12:42 Ur Squamous Epith Cells 0-5 /hpf (0-5) 09/16/24 12:42 Amorphous Sediment Not Reportable 09/16/24 12:42 Urine Bacteria Trace /hpf (NONE) 09/16/24 12:42 Hyaline Casts 0.40 /lpf 09/16/24 12:42 Serum Ketones Negative (Negative) 09/16/24 12:10 Vitals Last Vital Signs Temp 97.7 F 09/17/24 08:00 Pulse 87 09/17/24 08:00 Resp 16 09/17/24 08:00 BP 135/81 09/17/24 08:00 Pulse Ox 99 09/17/24 08:00 O2 Del Method Room Air 09/17/24 08:00 Discharge Plan Discharge Patient Disposition: Home Condition: Stable Prescriptions: New ciprofloxacin HCl [Cipro] 500 mg tablet 500 mg PO Q12H Qty: 14 0RF glipizide 10 mg tablet 10 mg PO DAILY Qty: 300 0RF Continued aspirin 81 mg tablet,chewable 81 mg PO DAILY aripiprazole [Abilify] 15 mg tablet 15 mg PO DAILY Qty: 30 11RF bupropion HCl [Wellbutrin XL] 150 mg tablet extended release 24 hr 150 mg PO QAM Qty: 30 11RF venlafaxine [Effexor XR] 150 mg capsule,extended release 24hr 150 mg PO DAILY Qty: 30 11RF Rx Instructions: take 1 tab (150mg) with 1 75mg venlafaxine [Effexor XR] 75 mg capsule,extended release 24hr 75 mg PO DAILY Qty: 30 11RF Rx Instructions: Total of 225 mg daily mirtazapine 45 mg tablet 45 mg PO .HS Qty: 30 11RF hydroxyzine HCl 50 mg tablet 50 mg PO QID PRN (Reason: insomnia) Qty: 120 11RF diazepam 5 mg tablet 5 mg PO TID PRN (Reason: anxiety) 30 Days Qty: 90 0RF carvedilol 12.5 mg tablet 12.5 mg PO BID Qty: 60 4RF allopurinol 100 mg tablet See Rx Instructions .ROUTE .COMPLEX Qty: 90 3RF Dose Instruction: TAKE ONE TABLET BY MOUTH EVERY DAY Rx Instructions: TAKE ONE TABLET BY MOUTH EVERY DAY (DME) one touch ultra test srips See Rx Instructions .Route .MEDSUPPLY Qty: 100 0RF Rx Instructions: As directed (DME) glucose meter/supplies: lancets/pads/test strips See Rx Instructions .Route .MEDSUPPLY Qty: 50 0RF Rx Instructions: As directed Januvia 100 mg tablet See Rx Instructions .ROUTE .COMPLEX Qty: 90 1RF Dose Instruction: TAKE ONE TABLET BY MOUTH EVERY DAY Rx Instructions: TAKE ONE TABLET BY MOUTH EVERY DAY tamsulosin 0.4 mg capsule 0.4 mg PO DAILY Qty: 30 0RF Discontinued Invokana 100 mg tablet 100 mg PO DAILY Qty: 30 5RF glipizide 5 mg tablet See Rx Instructions .ROUTE .COMPLEX Qty: 540 1RF Dose Instruction: TAKE 2 TABLETS BY MOUTH THREE TIMES DAILY Rx Instructions: TAKE 2 TABLETS BY MOUTH THREE TIMES DAILY Discharge Order = DC NOW: Discharge Order (Routine); Ordered 09/17/24 Ordered By: Dioni Negrete Referrals: Terrell Verdin MD [Primary Care Provider, Family Practice] - 09/28/24 11:30 am Angela Hubbard MD [Physician, Endocrinology] - 09/22/24 8:00 am Discharge Diet: Advance as tolerated and Usual diet Discharge Activity: Resume usual activity and Increase activity as tolerated Patient Instructions: Opioid Safety, Pain Management, Patient Portal & Yesenia Instructions Discharge Attestations Time Spent in Discharge Care*: greater than 30 min Specific Discharge Activities: educating patient, educating and/or supporting family/caregiver, discussing with pcp/other providers, discussing with supportive employment case manager/social workers/dc planners, documenting/other paperwork and evaluating patient/reviewing data Status at Discharge: Cognitive status at discharge: cognitively intact , Behavioral status at discharge: cooperative , Functional status at discharge: independent ambulation , Overall status at discharge: patient is back to baseline Quality Metrics Clinical Quality Measures [ No reported AMI, CVA or VTE this stay] Coding Level of Care Code 77182 Diagnoses UTI (urinary tract infection) N39.0 Uncontrolled diabetes mellitus with hyperglycemia E11.65 BPH with urinary obstruction N40.1; N13.8 Social anxiety disorder F40.10
[2024-09-17 10:55] VITALS: BP 125/79; PULSE 84; RESP 17; TEMP 36.6; O2SAT 98
--- NOTE | 2024-09-17 12:04 | PC.SOCIAL ---
IMM Update pg 2 of IMM Updated and reviewed w/ patient. Copy provided and copy dated, initialed and placed in chart.
[2024-09-17 13:52] VITALS: BP 125/79; PULSE 84; RESP 17; TEMP 36.6; O2SAT 98
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
== END 2024-09-17 13:54 | disposition home or self-care (01) ==
LOC: ER 13:50 → MEDSURG 19:45
PROVIDERS: Admitting Provider Student in an Organized Health Care Education/Training Program; Emergency Provider Family Medicine; PCP Family Medicine; Visit Provider Student in an Organized Health Care Education/Training Program
DX: N39.0 Urinary tract infection, site not specified (principal); E11.65 Type 2 diabetes mellitus with hyperglycemia; N40.1 Benign prostatic hyperplasia with lower urinary tract symptoms; N13.8 Other obstructive and reflux uropathy; F40.10 Social phobia, unspecified; Z79.82 Long term (current) use of aspirin; I10 Essential (primary) hypertension; I82.409 Acute embolism and thrombosis of unspecified deep veins of unspecified lower extremity; Z79.01 Long term (current) use of anticoagulants; E66.9 Obesity, unspecified; Z68.33 Body mass index [BMI] 33.0-33.9, adult; F17.290 Nicotine dependence, other tobacco product, uncomplicated
CPT/HCPCS: 36415; 36416; 36600; 71045; 80051; 80053; 81001; 82009; 82330; 82805; 82962; 83735; 85025; 87040; 87077; 87086; 87186; 93005; 96361; 96372; 96374; 96375; 99285; G0378; J0696; J1644; J1815; J2060; J3490; J7030; J9999

== ENCOUNTER → 2024-09-22 07:49 | Outpatient (BNVA) | payer MEDICARE, SELFPAY | PROVIDERS: PCP Family Medicine; Visit Provider Internal Medicine | DX: E11.65 Type 2 diabetes mellitus with hyperglycemia (principal); E78.2 Mixed hyperlipidemia; Z09 Encounter for follow-up examination after completed treatment for conditions other than malignant neoplasm | CPT/HCPCS: 99204 ==

== ENCOUNTER → 2024-10-18 10:49 | Outpatient (BNVA) | payer MEDICARE, SELFPAY | PROVIDERS: PCP Family Medicine; Visit Provider Family Medicine | DX: E11.65 Type 2 diabetes mellitus with hyperglycemia (principal) | CPT/HCPCS: 80053; 85025 ==

== ENCOUNTER 2024-11-23 12:30 | Inpatient (IN) | payer MEDICARE, SELFPAY ==
--- OUTSIDE RECORDS SUMMARY | 2024-08-10 03:00 | XMS_ITS ---
Author Organization [facility] Address [address] [facility] [place] [address] Care Team Providers Care Requirements Analyst Name Role Phone Terrell Verdin Primary Care Provider HECTOR Boswell Unavailable [phone] BEATRIZ QUINTANILLA Unavailable [phone] REASON FOR VISIT PVP @ [facility] Encounters Encounter Location Date Provider Diagnosis [facility] [address] [place] [facility] [place] [address] 08/10/2024 BEATRIZ QUINTANILLA Plan Of Treatment Next Appt Details Provider Name:BEATRIZ Ann, 01/03/2025 10:05:00 AM, [address] [facility] [place], [address], Progress Notes * Gio FERRARO SDOB:1960 (64 yo M)Acc No.[id number]:08/10/2024 Patient: Gio CHARLES Provider: Rock QUINTANILLA MD :1960 A ge:63 Y S ex:Male Date:08/10/2024 Address:[address] [place], [place] [phone] Pcp:Terrell Verdin * Billing Information: * Visit Code: * Procedure Codes: * Electronic signature of AUST IN MD DWIGHT on 11/23/2024 at 12:55 PM CDT Sign off status: Pending * Provider: Rock QUINTANILLA MD Date: 08/10/2024 Generated for Andreea conklin/Juan/Yanelis on: 1 12:55 PM CDT
--- OUTSIDE RECORDS SUMMARY | 2024-10-05 08:30 | XMS_ITS ---
Author Organization [facility] Address [address] [place] [address] Care Team Providers Care Shingle Grader Name Role Phone Terrell Verdin MD Primary Care Provider UnavailMolly Laureano Unavailable [phone] Krissy Reina Unavailable [phone] REASON FOR VISIT Elevated Creatinie Encounters Encounter Location Date Provider Diagnosis [facility] [address] [place] [address] [address] [place] [address] 10/05/2024 Molly Kulkarni Plan Of Treatment Next Appt Details Provider Name:Molly samaniego, 03/08/2025 01:00:00 PM, [address] [place] [address] [place], [address], Provider Name:Alverto Gao, 06/16/2025 01:20:00 PM, [address] [place] [address] [place], [address], History and Physical Notes * HPI (History of Present Illness) Category Sub-Category Detail Notes Category Not es : Labratory Data: 06/26/24: BUN 49, creatinine 2.9, glucose 164, calcium 9.9, magnesium 1.3, UA shows blood negative, protein negative, bacteria none 06/26/2024: Hgb 11.50 05/31/2024: 136, 5.0, 104, 20, 31, 2.7, glucose 101, calcium 9.6, Hgb 11.80 03/15/2024: 132, 5.0, 101, 19, 41, 2.7, glucose 287, calcium 0.2, Hgb 12.90 08/29/2023: Hgb 12.60 08/11/2023: 136, 5.3, 103, 20, 43, 2.5, glucose 183, calcium 9.7, Hgb 13.30 06/09/2023: 140, 5.4, 105, 24, 28, 2.3, glucose 96, calcium 9.8, Hgb 13.60 10/09/2022: 138, 4.3, 100, 26, 39, 2.1, glucose 203, calcium 0.5, Hgb 12.30 Progress Notes * GABRIEL RODGERS SDOB:1960 (64 yo M)Acc No.[id number]:10/05/2024 Progress Notes Patient: GABRIEL CHARLES Provider: Dat Kulkarni CNP :1960 A ge:63 Y S ex:Male Date:10/05/2024 Address:[address] [place] [address] Patrick Koch [facility], [id number] Pcp:Terrell Verdin MD Subjective: * Chief Complaints: * E levated Creatinie * HPI: * :: Labratory Data: 06/26/24: BUN 49, creatinine 2.9, glucose 164, calcium 9.9, magnesium 1.3, UA shows blood negative, protein negative, bacteria none 06/26/2024: Hgb 11.50 05/31/2024: 136, 5.0, 104, 20, 31, 2.7, glucose 101, calcium 9.6, Hgb 11.80 03/15/2024: 132, 5.0, 101, 19, 41, 2.7, glucose 287, calcium 0.2, Hgb 12.90 08/29/2023: Hgb 12.60 08/11/2023: 136, 5.3, 103, 20, 43, 2.5, glucose 183, calcium 9.7, Hgb 13.30 06/09/2023: 140, 5.4, 105, 24, 28, 2.3, glucose 96, calcium 9.8, Hgb 13.60 10/09/2022: 138, 4.3, 100, 26, 39, 2.1, glucose 203, calcium 0.5, Hgb 12.30. Billing Information: * Procedure Codes: * Electronic signature of Sivan Kulkarni CNP on 11/23/2024 at 12:55 PM CDT Sign off status: Pending * Provider: Dat Kulkarni CNP Date: 0 10/05/2024 Generated for Andreea conklin/Juan/Yanelis on: 1 12:55 PM CDT
[2024-11-23] VITALS (34 sets, daily range): BP systolic 98–162; BP diastolic 64–99; PULSE 80–112; RESP 7–40; TEMP 36.2–36.8; O2SAT 82–96; BMI 19.8; BMI 30.5
--- NOTE | 2024-11-23 12:20 | ECG_ITS ---
[facility] Test Date: 2024-11-23 Pat Name: Gio Ferraro Department: Room: Gender: Male Director Of Field Sales: : 1960 Requested By: Cally Uribe Order Number: [id number] Daniele MD: Miky Linder M.D. Measurements Intervals [place] Rate: 83 P: 0 [place]: 0 QRS: 229 QRSD: 197 T: 11 QT: 446 QTc: 525 Interpretive Statements ATRIAL FIBRILLATION RIGHT AXIS DEVIATION [QRS AXIS > 100] RIGHT BUNDLE BRANCH BLOCK [120+ ms QRS DURATION, UPRIGHT V1, 40+ ms S IN I/aVL/V4/V5/V6] Compared to ECG 09/16/2024 12:41:49 Right-axis deviation now present Sinus rhythm no longer present Left-axis deviation no longer present Electronically Signed On 11-24-2024 16:54:55 CDT by Miky Linder M.D. [email or web address]
--- NOTE | 2024-11-23 12:37 | XR_ITS ---
WS: [id number] XR chest 1V portable [id number] REASON FOR EXAM: ams FINDINGS: The chest is unchanged compared to 09/16/2024. Moderate tortuosity and ectasia of the aortic arch and thoracic aorta. Normal heart size. Calcified granulomatous disease bilaterally. No acute pulmonary parenchymal or pleural abnormality is identified. XR/XR chest 1V portable [id number] IMPRESSION: Stable chest without acute abnormality.
--- NOTE | 2024-11-23 12:37 | CT_ITS ---
WS: [id number] CT HEAD NONCONTRAST HISTORY: fall TECHNIQUE: Contiguous axial imaging performed through the brain. Bone and soft tissue windows. Sagittal and coronal reformats reviewed. All CT scans at [facility] use at least one of these dose optimization techniques: automated exposure control; mA and/or kV adjustment per patient size (includes targeted exams where dose is matched to clinical indication); or iterative reconstruction. DLP: 1102.35 mGy.cm COMPARISON: 10/04/2020 No acute intracranial hemorrhage, midline shift or mass effect. Very mild atrophy and small vessel disease. No edema or acute infarct. Mild cerebellar atrophy. Ventricles: Normal size with no hydrocephalus. No inferior displacement the cerebellar tonsils. Paranasal sinuses: As visualized are clear. Mastoid air cells: Well pneumatized. Calvarium and scalp: Skull is intact with no soft tissue edema or swelling. CT/CT head wo con* 32011 IMPRESSION: 1. No acute intracranial hemorrhage or edema. 2. Mild cerebral and cerebellar atrophy and mild small vessel disease. Stable.
[2024-11-23 12:47] LABS: Hematocrit 45.6 % (37-53); Hemoglobin 15.10 g/dL (11.27-16.99); Mean Corpuscular HGB Conc 33.1 g/dL (30-55); Mean Corpuscular Hemoglobin 25.1 pg (27-33); Mean Corpuscular Volume 75.9 fl (82-101); Nucleated Red Blood Cells % 0 %; Platelet Count 289 10^3/cmm (157-399); Red Blood Count 6.01 10^6/uL (3.85-5.65); White Blood Count 23.51 10^3/uL (3.29-11.43)
--- NOTE | 2024-11-23 12:51 | W.ED.WEAKNES ---
HPI - Weakness General: Chief complaint: Weakness Stated complaint: High Glucose Source: patient and EMS Mode of arrival: EMS Limitations: no limitations and altered mental status History of Present Illness: 64-year-old male with a history of diabetes per EMS patient was found on the ground hallucinating and altered today unsure when the last known normal was. Patient is also hyperglycemic sugar over 600 here. Patient here to states he feels short of breath not able to really answer many questions no known recent illness. Related Data Home Medications ?Medication ?Instructions ?Recorded ?Confirmed aspirin 81 mg chewable tablet 81 mg PO DAILY 12/25/20 11/23/24 allopurinol 100 mg tablet 100 mg PO DAILY 11/23/24 11/23/24 carvedilol 12.5 mg tablet 12.5 mg PO BID 11/23/24 11/23/24 glipizide 10 mg tablet 10 mg PO DAILY 11/23/24 11/23/24 Previous Rx's ?Medication ?Instructions ?Recorded glucose meter/supplies: #50 ea 04/21/24 lancets/pads/test strips one touch ultra test srips #100 ea 04/21/24 aripiprazole 15 mg tablet (Abilify) 15 mg PO DAILY #30 tabs 04/28/24 bupropion HCl 150 mg 24 hr tablet, 150 mg PO QAM #30 tabs 04/28/24 extended release (Wellbutrin XL) hydroxyzine HCl 50 mg tablet 50 mg PO QID PRN insomnia #120 tabs 04/28/24 mirtazapine 45 mg tablet 45 mg PO .HS #30 tabs 04/28/24 venlafaxine 150 mg 150 mg PO DAILY #30 caps 04/28/24 capsule,extended release 24 hr (Effexor XR) venlafaxine 75 mg capsule,extended 75 mg PO DAILY #30 caps 04/28/24 release 24 hr (Effexor XR) tamsulosin 0.4 mg capsule 0.4 mg PO DAILY #30 caps 06/26/24 diazepam 5 mg tablet (Valium) 5 mg PO BID PRN anxiety #60 tabs 09/22/24 pioglitazone 45 mg tablet (Actos) 45 mg PO DAILY #90 tabs 09/22/24 blood-glucose sensor (Inovus Solar G7 #9 ea 11/18/24 Sensor device) blood-glucose,integration consultant,cont #1 ea 11/18/24 (Dexcom G7 Controls Design Engineer) insulin glargine 100 unit/mL (3 10 unit (0.1 mL) SUBCUT DAILY #15 11/18/24 mL) subcutaneous pen (Lantus mL Solostar U-100 Insulin) semaglutide 0.25 mg or 0.5 mg (2 0.25 mg (0.368 mL) SUBCUT Q7D #3 mL 11/18/24 mg/3 mL) subcutaneous pen injector (Ozempic) Allergies Allergy/AdvReac Type Severity Reaction Status Date / Time No Known Allergies Allergy Verified 11/09/24 08:51 Review of Systems General: Reports: ROS unobtainable due to mental status PFSH ED PFSH: Medical History Hyperlipemia, mixed Obesity Diabetes Deep vein thrombosis (DVT) of right lower extremity Psychiatric care Essential hypertension DVT (deep venous thrombosis) DVT (deep venous thrombosis) Shortness of breath Surgical History S/P AAA repair Family History Other CAD (coronary artery disease) Dementia Diabetes Hyperlipidemia Hypertension Social History Smoking and tobacco/nicotine status: former use of tobacco/nicotine Quit status (tobacco/nicotine): not considering quitting Second hand smoke exposure: No Alcohol intake: former Substance/Drug Use: former Physical Exam Const: COMMON NORMALS: negative for patient oriented x3 GENERAL APPEARANCE: disheveled and ill appearing HENMT: COMMON NORMALS: normocephalic and atraumatic HEAD & SCALP: normocephalic and atraumatic Eye: COMMON NORMALS: Equal, round and reactive pupils present and EOMs intact bilaterally PUPIL: Yes Equal, round and reactive pupils present Neck/C-Spine: COMMON NORMALS: full ROM and supple Chest: COMMONS NORMALS: normal inspection of the chest Resp: COMMON NORMALS: No retractions, No use of accessory muscles and clear to auscultation bilaterally EFFORT & INSPECTION: Yes tachypneic AUSCULTATION: clear to auscultation bilaterally Cardio: COMMON NORMALS: regular rate, regular rhythm and No murmurs present (Cardio) RATE: regular rate RHYTHM: regular rhythm GI: COMMON NORMALS: Normal to inspection, nondistended, normoactive bowel sounds present, Soft to palpation, non-tender and no masses PALPATION: Yes Soft to palpation Extremity: COMMON NORMALS: normal to inspection and full ROM Neuro: COMMON NORMALS: moves all extremities and no focal motor deficits; negative for patient oriented x3 Psych: COMMON NORMALS: cooperative; negative for mental status grossly normal Skin: COMMON NORMALS: no rashes or lesions noted and no wounds GENERAL SKIN EXAM: no rashes or lesions noted Course Vital Signs: Vital signs: Vital Signs Temperature 97.6 F 11/23/24 12:30 Pulse Rate 94 11/23/24 13:54 Respiratory Rate 17 11/23/24 13:54 Blood Pressure 147/86 11/23/24 13:54 Pulse Oximetry 92 11/23/24 13:54 Oxygen Delivery Me thod Room Air 11/23/24 13:54 Fraction of Inspir ed Oxygen 21 11/23/24 13:10 MDM - Weakness Medical Decision Making Patient presents with altered mental status he has multiple comorbidities. Patient was found to have multiple lab abnormalities including a very high glucose of 1296 he is also hyperkalemic with potassium of 8.9 and acidotic. Patient was given 2 g of calcium gluconate here as his original EKG had significant QRS widening repeat EKG at 1357 showed improvement of the QRS widening. Chest x-ray here showed no pneumonia CT head was normal. Does have an elevated white count likely stress-induced but did start antibiotics and get blood cultures as well. Patient's mentation has improved here after IV fluids and calcium. Patient also given an insulin bolus and started on insulin drip here. His vitals have been stable while here. I did speak to the hospitalist Dr. Estevez and will admit to the ICU at this time Medical Records I reviewed the patient's medical records. Lab Data I reviewed the patient's lab results. 11/23/24 12:41 11/23/24 12:41 Radiology Impressions Chest X-Ray 11/23/24 12:37 IMPRESSION: Stable chest without acute abnormality. Head CT 11/23/24 12:37 IMPRESSION: 1. No acute intracranial hemorrhage or edema. 2. Mild cerebral and cerebellar atrophy and mild small vessel disease. Stable. Laboratory Results WBC 23.51 10^3/uL (3.29-11.43) H 11/23/24 12:41 RBC 6.01 10^6/uL (3.85-5.65) H 11/23/24 12:41 Hgb 15.10 g/dL (11.27-16.99) 11/23/24 12:41 Hct 45.6 % (37-53) 11/23/24 12:41 MCV 75.9 fl (82-101) L 11/23/24 12:41 MCH 25.1 pg (27-33) L 11/23/24 12:41 MCHC 33.1 g/dL (30-55) 11/23/24 12:41 RDW 14.1 % (12.1-15.1) 11/23/24 12:41 Plt Count 289 10^3/cmm (157-399) 11/23/24 12:41 MPV 9.5 fL (7.4-10.4) 11/23/24 12:41 Neut % (Auto) 87.9 % 11/23/24 12:41 Lymph % (Auto) 3.4 % 11/23/24 12:41 [place] % (Auto) 7.3 % 11/23/24 12:41 Eos % (Auto) 0.0 % 11/23/24 12:41 Baso % (Auto) 0.2 % 11/23/24 12:41 Neut # (Auto) 20.68 10^3/uL (1.8-7.7) H 11/23/24 12:41 Lymph # (Auto) 0.8 10^3/uL (0.8-4.8) 11/23/24 12:41 [place] # (Auto) 1.7 10^3/uL (0.2-0.9) H 11/23/24 12:41 Eos # (Auto) 0.0 10^3/uL (0.0-0.8) 11/23/24 12:41 Baso # (Auto) 0.1 10^3/uL (0.0-0.1) 11/23/24 12:41 Nucleated RBC % (auto) 0 % 11/23/24 12:41 Nucleated RBCs # 0.0 /100WBC 11/23/24 12:41 Specimen Type Arterial 11/23/24 12:42 Sample Site Radial, right 11/23/24 12:42 ABG pH 7.22 (7.35-7.45) L 11/23/24 12:42 ABG pCO2 34.2 mmHg (35-45) L 11/23/24 12:42 ABG pO2 65.4 mmHg (80.0-100.0) L 11/23/24 12:42 ABG PO2/FiO2 Ratio 311 11/23/24 12:42 ABG HCO3 14.0 mmol/L (22-26) L 11/23/24 12:42 ABG O2 Saturation 90.8 11/23/24 12:42 ABG Base Excess -12.7 mmol/L (-2.0-2.0) L 11/23/24 12:42 Stewart Test Pos 11/23/24 12:42 A-a O2 Gradient 5.5 mmHg (5-10) 11/23/24 12:42 Hematocrit 46.7 % (42-52) 11/23/24 12:42 Hgb O2 Saturation 89.5 % (95-100) L 11/23/24 12:42 Carboxyhemoglobin 1.4 %THgb (0.4-20.1) 11/23/24 12:42 Methemoglobin 0.0 % (0.4-1.5) L 11/23/24 12:42 Total Hemoglobin 15.2 g/dL (14-18) 11/23/24 12:42 Sodium 106.0 mmol/L (131-143) L 11/23/24 12:42 Potassium 8.2 mmol/L (3.5-5.0) H 11/23/24 12:42 Glucose > 1080.0 mg/dL (70-115) H 11/23/24 12:42 Ionized Calcium 1.2 mmol/L (1.1-1.4) 11/23/24 12:42 O2 Delivery Device Room air 11/23/24 12:42 FiO2 21.0 % 11/23/24 12:42 Motor Winder ID Walci 11/23/24 12:42 Sodium 105 mmol/L (136-145) L* 11/23/24 12:41 Potassium 8.9 mmol/L (3.5-5.1) H* 11/23/24 12:41 Chloride 69 mmol/L (98-107) L 11/23/24 12:41 Carbon Dioxide 13 mmol/L (22-29) L 11/23/24 12:41 Anion Gap 31.9 (5-19) H 11/23/24 12:41 BUN 110 mg/dL (8-23) H* D 11/23/24 12:41 Creatinine 4.6 mg/dL (0.7-1.2) H 11/23/24 12:41 GFR Calculation 12.9 mL/min (90-130) L 11/23/24 12:41 Glucose 1296 mg/dL (65-115) H* 11/23/24 12:41 POC Glucose > 600 mg/dL (70-110) H* 11/23/24 12:37 Calculated Osmolality 321 mOsm/kg (285-295) H 11/23/24 12:41 Calcium 10.2 mg/dL (8.5-10.5) 11/23/24 12:41 Phosphorus 6.1 mg/dL (2.5-4.5) H 11/23/24 12:41 Magnesium 2.3 mg/dL (1.7-2.3) 11/23/24 12:41 Total Bilirubin 0.8 mg/dL (0.15-1.2) 11/23/24 12:41 AST 11 U/L (0-40) 11/23/24 12:41 ALT 9 U/L (0-41) 11/23/24 12:41 Alkaline Phosphatase 216 U/L (40-130) H 11/23/24 12:41 Creatine Kinase 157 U/L (39-308) 11/23/24 12:41 Total Protein 8.4 g/dL (6.6-8.7) 11/23/24 12:41 Albumin 4.4 g/dL (3.5-5.2) 11/23/24 12:41 Globulin 4.0 g/dL (1.3-4.6) 11/23/24 12:41 TSH 1.60 uIU/mL (0.27-4.20) 11/23/24 12:41 Serum Ketones Negative (Negative) 11/23/24 12:41 All radiology interpretation(s) finalized by discharge EKG Data EKG 1: I personally reviewed and interpreted this EKG as follows: EKG interpretation date: 11/23/24 EKG interpretation time: 12:37 Interpretation: irregular rhythm hr 83 widened qrs qtc 485 Critical Care Time Critical Care Time: Critical Care Time: Yes Total Critical Care Time: 45 Attestation: The high probability of a clinically significant, sudden or life threatening deterioration of the patient's endocrine system(s) required my full and direct attention, intervention and personal management. The critical care time is as shown. This time is in addition to time spent performing any reported procedures but includes the following: [x] Data and vital sign review and interpretation [x] Patient assessment, examination and intervention [x] Documentation [x] Medication orders and management Discharge Plan Discharge Patient Disposition: Admitted As Inpatient Admit Provider: Valeria Estevez Clinical Impression: Hyperkalemia, Hyperglycemic hyperosmolar nonketotic coma, Altered mental status Condition: Stable Coding Level of Care Code ED Interventional Pain Physician for Guerline Babb
[2024-11-23 12:54] LABS: ABG PH Result 7.22 (7.35-7.45); Blood Gas Allen Test Pos; Blood Gas Operator Identificat WALCI; Blood Gas Sample Site Radial, right; Blood Gas Sample Type Arterial; Carboxyhemoglobin 1.4 %THgb (0.4-20.1); Glucose Level-ABG > 1080.0 mg/dL (70-115)
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
--- OUTSIDE RECORDS SUMMARY | 2024-11-23 12:55 | XMS_ITS | Patient Health Record ---
Author Organization [facility] Address [address] [place] [address] Care Team Providers Care Prop Worker Name Role Phone Lambert HORVATH, Terrell Primary Care Provider Unavailab Molly Mitchell Unavailable [phone] Krissy Reina Unavailable [phone] Alverto Gao Unavailable [phone] Allergies No Known Allergies Reason For Referral No Information Medications Medication SIG (Take, Route, Frequency, Duration) Notes Start Date End Date Status glipiZIDE 10 MG Tablet 1 tablet 30 minut es before breakfast Orally Once a day Active Actos 45 MG Tablet 1 tablet Orally Once a day Active Allopurinol 100 MG Tablet 1 tablet Orall y Once a day Active Effexor XR 75 MG Capsule Extended Release 24 Hour 1 capsule with food Orally Once a day Active Ozempic (0.25 or 0.5 MG/DOSE) 2 MG/3ML Solution Pen-injector as directed Subcutaneous Act mimi Wellbutrin XL 150 MG Tablet Extended Release 24 Hour 1 tablet in the morning Orally Once a day Active Carvedilol 12.5 MG Tablet 1 tablet with food Orally Twice a day Active ARIPiprazole 15 MG Tablet 1 tablet Orall y Once a day Active Aspirin 81 81 MG Tablet Chewable 1 tablet Orally Once a day Active Ciprofloxacin HCl 500 MG Tablet 1 tablet Orally every 12 hrs Active diazePAM 5 MG Tablet 1 tablet as needed Orally Once a day Active Social History Social History Additional Details Category Social Info Options Details Miscellaneous: Marital status: Children: 4 biological kid s Current Employment Status Disabl ed Education High School Dipl [employer] Notes: Pt admitted to smoking tobacco, Doesn't smoke everyday Pt denies ever usin illegal drugs Pt admits to drinking alcohol VERY occasionally Problems Problem Type SNOMED Code ICD Code Onset Dates Problem Status W/U Status Risk Notes Problem Anemia in chronic kidney disease (208549079) Anemia in chronic kidney disease (D63.1) Active confirmed Problem Chronic kidney disease stage 4 (291856190) Chronic kidney disease, stage 4 (severe) (N18.4) Active confirmed Problem Essential hypertension (70219182) Essential hypertension (I10) Active confirmed Problem Chronic kidney disease stage 4 (886848389) CKD (chronic kidney disease), stage IV (N18.4) Active confirmed Problem Diabetic renal disease (446865167) 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) Active confirmed Problem Gout (73535953) Controlled gout (M10.9) Active confirmed Vital Signs Heart Rate 81 /min 10/07/2024 Temperature 98.4 degrees Fahrenheit 10/07/2024 Oximetry 99 % 10/07/2024 Blood pressure diastolic 85 mm Hg 10/07/2024 Weight-kg 100.7 kg 10/07/2024 Blood pressure systolic 145 mm Hg 10/07/2024 Weight 222 lbs 10/07/2024 Encounters Encounter Location Date Provider Diagnosis Formerly [facility], [facility]–[address] [place] [address] 10/07/2024 Molly Kulkarni CKD (chronic kidney disease), stage IV N18.4 ; Essential hypertension I10 ; Type II diabetes mellitus with nephropathy E11.21 ; Controlled gout M10.9 and Anemia in chronic kidney disease D63.1 Formerly [facility], 1928–[address] Nephrology Clinic [address] [place] [address] [place] [address] 06/30/2024 [facility] Nephrology [address] [place] [address] 10/05/2024 [facility] Nephrology [address] [place] [address] 10/18/2024 Molly Kulkarni CKD (chronic kidney disease), stage IV N18.4 Assessments Encounter Date Diagnosis (ICD Code) Assessment Notes Treatment Notes Treatment Clinical Notes Section Notes 10/07/2024 CKD (chronic kidney disease), stage IV (ICD-10 - N18.4) Chronic Kidney Disease: Care Instructions material was printed Chronic kidney disease stage IV based on current labs available. CKD likley d/t Bladder outlet obstruction, Hypertension and Diabetes. Hypertension is uncontrolled in clinic, but controlled at home by report. Unknown control diabetes. He does in and out caths 3-4 times daily. Gout is controlled with allopurinol. 10/18/2024 CKD (chronic kidney disease), stage IV (ICD-10 - N18.4) 10/07/2024 Essential hypertension (ICD-10 - I10) Chronic kidney disease stage IV based on current labs available. CKD likley d/t Bladder outlet obstruction, Hypertension and Diabetes. Hypertension is uncontrolled in clinic, but controlled at home by report. Unknown control diabetes. He does in and out caths 3-4 times daily. Gout is controlled with allopurinol. 10/07/2024 Type II diabetes mellitus with nephropathy (ICD-10 - E11.21) Chronic kidney disease stage IV based on current labs available. CKD likley d/t Bladder outlet obstruction, Hypertension and Diabetes. Hypertension is uncontrolled in clinic, but controlled at home by report. Unknown control diabetes. He does in and out caths 3-4 times daily. Gout is controlled with allopurinol. 10/07/2024 Controlled gout (ICD-10 - M10.9) Chronic kidney disease stage IV based on current labs available. CKD likley d/t Bladder outlet obstruction, Hypertension and Diabetes. Hypertension is uncontrolled in clinic, but controlled at home by report. Unknown control diabetes. He does in and out caths 3-4 times daily. Gout is controlled with allopurinol. 10/07/2024 Anemia in chronic kidney disease (ICD-10 - D63.1) Chronic kidney disease stage IV based on current labs available. CKD likley d/t Bladder outlet obstruction, Hypertension and Diabetes. Hypertension is uncontrolled in clinic, but controlled at home by report. Unknown control diabetes. He does in and out caths 3-4 times daily. Gout is controlled with allopurinol. 10/07/2024 Other Continue curren t antihypertensives and monitor blood pressure daily with a goal of less than 130/80. Patient instructed to call clinic if blood pressure not at goal range. Low-sodium diet. Follow-up with endocrinology for diabetic control. Continue In-N-Out caths and follow with urology as directed. Stay well-hydrated. Continue allopurinol and monitor uric acid. Renal dose medications for GFR of less than 30 mL/min. Avoid nephrotoxins and NSAIDs. Repeat BMP at PCPs office on 10/18. Follow-up in [address] labs [address] Dr[address] Verdin's office. Chronic kidney disease stage IV based on current labs available. CKD likley d/t Bladder outlet obstruction, Hypertension and Diabetes. Hypertension is uncontrolled in clinic, but controlled at home by report. Unknown control diabetes. He does in and out caths 3-4 times daily. Gout is controlled with allopurinol. Plan Of Treatment Pending Test Test Name Order Date Basic Metabolic Panel (BMP) 97272 2024 Future Test Test Name Order Date Albumin 44640 01/26/2025 Basic Metabolic Panel (BMP) 84190 2024 Ferritin 96628 01/26/2025 Hemoglobin 60866 01/26/2025 Iron Binding Capacity Total 83773 2024 Iron Level 54127 01/26/2025 Magnesium (B) 20393 01/26/2025 Phosphorus (B) 07381 01/26/2025 Uric Acid (B) 26435 01/26/2025 Microalbumin (U) Random 06271 01/26/2025 Creatinine (U) 18449 01/26/2025 UA Reflex Micro, Reflex Cult 87416, 8101 5, 08142 01/26/2025 PTH Intact 86886 01/26/2025 % Iron Saturation (Fe & TIBC)--46531,835 50 01/26/2025 Next Appt Details Provider Name:Molly samaniego, 03/08/2025 01:00:00 PM, [address] [place] [address] [address], [place], [address], Provider Name:Alverto Gao, 06/16/2025 01:20:00 PM, [address] [place] [address] [address], [place], [address], Insurance Providers Payer Name Payer Address Payer Phone Subscriber Number Group Number Insured Name Patient Relationship to Insured Coverage Start Date Coverage End Date [facility] [place] [address] [place] [address] [id number] GABRIEL RODGERS Self - patient is the insured Medical (General) History Medical History History ICD Code High blood pressure Diabetes Blood clots Depression/Anxiety Stroke Urinary Catheter Enlarged Prostate Surgical History Surgery Date(Month/Year) Prostate Surgery Gallbladder Removed Hospitalization History Reason Date(Month/Year) See Surgical HX
[2024-11-23 13:04] LABS: Ketone (Acetest) Serum Negative (Negative)
[2024-11-23 13:07] LABS: ABG PCO2 34.2 mmHg (35-45); Alveolar-Arterial Oxygen Gradi 5.5 mmHg (5-10); Arterial Blood Gas Hematocrit 46.7 % (42-52); HCO3 ABG 14.0 mmol/L (22-26); Ionized Calcium Level - ABG 1.2 mmol/L (1.1-1.4); Methemoglobin 0.0 % (0.4-1.5); Oxygen Saturation ABG 90.8; PO2 ABG 65.4 mmHg (80.0-100.0); PO2 FiO2 Ratio Arterial Blood 311; Potassium Level - ABG 8.2 mmol/L (3.5-5.0); Sodium Level - ABG 106.0 mmol/L (131-143)
[2024-11-23 13:14] LABS: Alanine Aminotransferase 9 U/L (0-41); Albumin Level 4.4 g/dL (3.5-5.2); Alkaline Phosphatase 216 U/L (40-130); Anion Gap 31.9 (5-19); Aspartate Amino Transferase 11 U/L (0-40); Calcium 10.2 mg/dL (8.5-10.5); Carbon Dioxide 13 mmol/L (22-29); Chloride 69 mmol/L (98-107); Creatinine Clr Calc Pharmacy 14.8298; Globulin 4.0 g/dL (1.3-4.6); Thyroid Stimulating Hormone 1.60 uIU/mL (0.27-4.20); Total Protein 8.4 g/dL (6.6-8.7)
[2024-11-23] MEDS: insulin regular-human 100 units/1 mL 10 UNIT IVP (13:16)
[2024-11-23] MEDS: calcium gluconate 0.1 gm/mL 10% SDV 10mL 1 GM IVP ×2 (13:19→13:46)
[2024-11-23] MEDS: INSULIN REGULAR IN 0.9 % NACL 100 UNIT/100 ML BAG 5.5 UNIT IV (13:22)
[2024-11-23 13:23] LABS: Osmolality Calculated 321 mOsm/kg (285-295)
[2024-11-23 13:27] LABS: Blood Urea Nitrogen 110 mg/dL (8-23); Glucose 1296 mg/dL (65-115); Potassium 8.9 mmol/L (3.5-5.1); Sodium 105 mmol/L (136-145)
[2024-11-23 13:33] LABS: Magnesium 2.3 mg/dL (1.7-2.3)
--- NOTE | 2024-11-23 13:57 | ECG_ITS ---
[facility] [employer] Test Date: 2024-11-23 Pat Name: Gio Ferraro Department: Room: [facility] Gender: Male Web Designer: : 1960 Requested By: Valeria Estevez Order Number: [id number] Daniele MD: Miky Linder M.D. Measurements Intervals [place] Rate: 93 P: 36 GA: 193 QRS: -67 QRSD: 156 T: 26 QT: 367 QTc: 458 Interpretive Statements SINUS RHYTHM RIGHT BUNDLE BRANCH BLOCK [120+ ms QRS DURATION, UPRIGHT V1, 40+ ms S IN I/aVL/V4/V5/V6] LEFT ANTERIOR FASCICULAR BLOCK [QRS AXIS <= -45, QR IN I, RS IN II] Compared to ECG 11/23/2024 12:37:52 Left anterior fascicular block now present Atrial fibrillation no longer present Right-axis deviation no longer present Electronically Signed On 11-24-2024 16:54:09 CDT by Miky Linder M.D. [email or web address]
[2024-11-23] MEDS: piperacillin-tazobactam 3.375 GM in sodium chloride 0.9% (plus) 50 ML IV (14:11)
--- NOTE | 2024-11-23 14:29 | PM.HP ---
Providers/Chief Complaint Admitting Physician: Valeria Estevez MD Primary Care Provider: Terrell Verdin MD Chief Complaint: High Glucose History of Present Illness Gio Ferraro is a 64 year old male With a past medical history of diabetes mellitus, history of prostatomegaly ? 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 Since then he has had prostate resection. He has been utilizing intermittent self cath at home, however more recently told his family that he was able to void by himself. Patient is presenting to the emergency room today after he reports having passed out at home. Reportedly per ER report patient was found on the ground by EMS hallucinating with altered mentation. It is not certain when he was last seen normal. Extra history is obtainable by family at bedside. His daughter reports that patient has been sick for about a week. He appeared to be slightly disoriented over the past week. Insulin had just been added to his regimen on (today is Friday) due to blood sugar noted to be in the 300-400 range. He reports compliance with his oral hypoglycemic agents. Reportedly he was recommended by his business process engineer office to coming to the emergency room for evaluation last week however patient had declined. Upon arrival here today he was noted to be in hyper osmolar hyperglycemic state with blood sugar of over 1200. He has several electrolyte abnormalities along with this including hyponatremia, hyperkalemia with a potassium of 8.9 with extremely wide QRS complexes. He has been started on an insulin drip, received a 2 L IV fluid bolus. He was noted to have urinary retention of about 2000 cc. Cortes catheter is in place at this time. He denies any dysuria however questionable reliability of his history at this point in time. Patient himself is currently drowsy, lethargic in conversation but able to correctly answer orientation questions with regards to his name, age, date of . He knows he is at [facility]. Last HbA1c checked in March 2024 was at 7.4. He was recently fitted with a Dexcom however per family it has not been working. Review of Systems General: Reports: 10 or more systems reviewed and unremarkable except in HPI and below Const: Denies: fever(s), chills or body aches Eyes: Denies: change in vision, blurry vision or photophobia ENMT: Reports: hoarseness; Denies: throat pain, enlarged tonsils, odynophagia or nasal congestion Card: Denies: chest pain, palpitations, irregular heart rhythm, edema, swelling of feet/ankles, lightheadedness, pre-syncope, dyspnea on exertion or orthopnea Resp: Denies: dyspnea, productive cough, non-productive cough, wheezing, stridor, pain on inspiration, change in phlegm color, hemoptysis or chest congestion GI: Denies: abdominal pain, nausea, vomiting, hematemesis, coffee ground emesis, dysphagia, heartburn, diarrhea, constipation, GI cramping, change in stool character, hematochezia or melena : Denies: flank pain, dysuria, urinary frequency, urinary urgency, urinary hesitancy or hematuria Musc: Denies: neck pain, back pain, extremity pain, joint swelling, joint warmth or deformity Neuro: Denies: headache(s), numbness in extremities, weakness in extremities, sensory changes, difficulty walking, frequent falls, dizziness, vertigo, behavioral changes, Slurred speech present or seizure-like activity Psych: Denies: anxiety, depression, suicidal ideation or homicidal ideation Endo: Denies: polyuria, polydipsia, tired all the time, cold intolerance or hot flashes Shabbir/Lymph: Denies: easy bruising or easy bleeding Medications/Allergies Home Medications ?Medication ?Instructions ?Recorded ?Confirmed ?Last Taken ?Type aspirin 81 mg chewable tablet 81 mg PO DAILY 12/25/20 11/23/24 11/23/24 History glucose meter/supplies: #50 ea 04/21/24 11/23/24 Unknown Rx lancets/pads/test strips one touch ultra test srips #100 ea 04/21/24 11/23/24 Unknown Rx aripiprazole 15 mg tablet (Abilify) 15 mg PO DAILY #30 tabs 04/28/24 11/23/24 11/23/24 Rx bupropion HCl 150 mg 24 hr tablet, 150 mg PO QAM #30 tabs 04/28/24 11/23/24 11/23/24 Rx extended release (Wellbutrin XL) hydroxyzine HCl 50 mg tablet 50 mg PO QID PRN insomnia #120 tabs 04/28/24 11/23/24 11/22/24 Rx mirtazapine 45 mg tablet 45 mg PO .HS #30 tabs 04/28/24 11/23/24 11/22/24 Rx venlafaxine 150 mg 150 mg PO DAILY #30 caps 04/28/24 11/23/24 11/23/24 Rx capsule,extended release 24 hr (Effexor XR) venlafaxine 75 mg capsule,extended 75 mg PO DAILY #30 caps 04/28/24 11/23/24 11/23/24 Rx release 24 hr (Effexor XR) tamsulosin 0.4 mg capsule 0.4 mg PO DAILY #30 caps 06/26/24 11/23/24 11/23/24 Rx diazepam 5 mg tablet (Valium) 5 mg PO BID PRN anxiety #60 tabs 09/22/24 11/23/24 Unknown Rx pioglitazone 45 mg tablet (Actos) 45 mg PO DAILY #90 tabs 09/22/24 11/23/24 11/23/24 Rx blood-glucose sensor (Dexcom G7 #9 ea 11/18/24 11/23/24 Unknown Rx Sensor device) blood-glucose,rock crusher,cont #1 ea 11/18/24 11/23/24 Unknown Rx (Dexcom G7 Field Care Coordinator) insulin glargine 100 unit/mL (3 10 unit (0.1 mL) SUBCUT DAILY #15 11/18/24 11/23/24 11/23/24 Rx mL) subcutaneous pen (Lantus mL Solostar U-100 Insulin) semaglutide 0.25 mg or 0.5 mg (2 0.25 mg (0.368 mL) SUBCUT Q7D #3 mL 11/18/24 11/23/24 Unknown Rx mg/3 mL) subcutaneous pen injector (Ozempic) allopurinol 100 mg tablet 100 mg PO DAILY 11/23/24 11/23/24 11/23/24 History carvedilol 12.5 mg tablet 12.5 mg PO BID 11/23/24 11/23/24 11/23/24 History glipizide 10 mg tablet 10 mg PO DAILY 11/23/24 11/23/24 11/23/24 History Allergies Allergy/AdvReac Type Severity Reaction Status Date / Time No Known Allergies Allergy Verified 11/09/24 08:51 PFSH Acute PFSH: Medical History Hyperlipemia, mixed Obesity Diabetes Deep vein thrombosis (DVT) of right lower extremity Psychiatric care Essential hypertension DVT (deep venous thrombosis) DVT (deep venous thrombosis) Shortness of breath Surgical History S/P AAA repair Family History Other CAD (coronary artery disease) Dementia Diabetes Hyperlipidemia Hypertension Social History Smoking and tobacco/nicotine status: former use of tobacco/nicotine Quit status (tobacco/nicotine): not considering quitting Second hand smoke exposure: No Alcohol intake: former Substance/Drug Use: former Vitals/I&O/Wt Last Vital Signs Temp 97.6 F 11/23/24 12:30 Pulse 94 11/23/24 13:54 Resp 17 11/23/24 13:54 BP 147/86 11/23/24 13:54 Pulse Ox 92 11/23/24 13:54 O2 Del Method Room Air 11/23/24 13:54 FiO2 21 11/23/24 13:10 11/22/24 11/23/24 11/23/24 22:59 06:59 14:59 Intake Total 500 / 500 Balance 500 / 500 Weight last 48 hrs Weight 58.967 kg Physical Exam Narrative: General: lethargic, AO x2-3 HEENT: PERRLA, pupils bilaterally equal and reactive, pallors not present Chest: Normal vesicular breath sounds, no added sounds, equal good air entry bilaterally CVS: S1-S2 regular, no murmurs, no tachycardia, no gallops, no rubs Abdomen: Soft, nontender, no organomegaly, bowel sounds present Neuro: No focal deficits, no facial deformity, AO x3, power 5/5 in all limbs Extremities: dehydration+, parched mucus membranes Data 11/23/24 12:41 11/23/24 12:41 Micro: Microbiology 11/23/24 13:45 Blood Culture - Preliminary Blood SPECIMEN COLLECTED 11/23/24 13:45 Blood Culture - Preliminary Blood SPECIMEN COLLECTED Other data: Radiology Impressions Chest X-Ray 11/23/24 12:37 IMPRESSION: Stable chest without acute abnormality. Head CT 11/23/24 12:37 IMPRESSION: 1. No acute intracranial hemorrhage or edema. 2. Mild cerebral and cerebellar atrophy and mild small vessel disease. Stable. Laboratory Results WBC 23.51 10^3/uL (3.29-11.43) H 11/23/24 12:41 RBC 6.01 10^6/uL (3.85-5.65) H 11/23/24 12:41 Hgb 15.10 g/dL (11.27-16.99) 11/23/24 12:41 Hct 45.6 % (37-53) 11/23/24 12:41 MCV 75.9 fl (82-101) L 11/23/24 12:41 MCH 25.1 pg (27-33) L 11/23/24 12:41 MCHC 33.1 g/dL (30-55) 11/23/24 12:41 RDW 14.1 % (12.1-15.1) 11/23/24 12:41 Plt Count 289 10^3/cmm (157-399) 11/23/24 12:41 MPV 9.5 fL (7.4-10.4) 11/23/24 12:41 Neut % (Auto) 87.9 % 11/23/24 12:41 Lymph % (Auto) 3.4 % 11/23/24 12:41 Jones % (Auto) 7.3 % 11/23/24 12:41 Eos % (Auto) 0.0 % 11/23/24 12:41 Baso % (Auto) 0.2 % 11/23/24 12:41 Neut # (Auto) 20.68 10^3/uL (1.8-7.7) H 11/23/24 12:41 Lymph # (Auto) 0.8 10^3/uL (0.8-4.8) 11/23/24 12:41 Jones # (Auto) 1.7 10^3/uL (0.2-0.9) H 11/23/24 12:41 Eos # (Auto) 0.0 10^3/uL (0.0-0.8) 11/23/24 12:41 Baso # (Auto) 0.1 10^3/uL (0.0-0.1) 11/23/24 12:41 Nucleated RBC % (auto) 0 % 11/23/24 12:41 Nucleated RBCs # 0.0 /100WBC 11/23/24 12:41 Specimen Type Arterial 11/23/24 12:42 Sample Site Radial, right 11/23/24 12:42 ABG pH 7.22 (7.35-7.45) L 11/23/24 12:42 ABG pCO2 34.2 mmHg (35-45) L 11/23/24 12:42 ABG pO2 65.4 mmHg (80.0-100.0) L 11/23/24 12:42 ABG PO2/FiO2 Ratio 311 11/23/24 12:42 ABG HCO3 14.0 mmol/L (22-26) L 11/23/24 12:42 ABG O2 Saturation 90.8 11/23/24 12:42 ABG Base Excess -12.7 mmol/L (-2.0-2.0) L 11/23/24 12:42 Stewart Test Pos 11/23/24 12:42 A-a O2 Gradient 5.5 mmHg (5-10) 11/23/24 12:42 Hematocrit 46.7 % (42-52) 11/23/24 12:42 Hgb O2 Saturation 89.5 % (95-100) L 11/23/24 12:42 Carboxyhemoglobin 1.4 %THgb (0.4-20.1) 11/23/24 12:42 Methemoglobin 0.0 % (0.4-1.5) L 11/23/24 12:42 Total Hemoglobin 15.2 g/dL (14-18) 11/23/24 12:42 Sodium 106.0 mmol/L (131-143) L 11/23/24 12:42 Potassium 8.2 mmol/L (3.5-5.0) H 11/23/24 12:42 Glucose > 1080.0 mg/dL (70-115) H 11/23/24 12:42 Ionized Calcium 1.2 mmol/L (1.1-1.4) 11/23/24 12:42 O2 Delivery Device Room air 11/23/24 12:42 FiO2 21.0 % 11/23/24 12:42 Sponge Press Operator ID [place] 11/23/24 12:42 Sodium 105 mmol/L (136-145) L* 11/23/24 12:41 Potassium 8.9 mmol/L (3.5-5.1) H* 11/23/24 12:41 Chloride 69 mmol/L (98-107) L 11/23/24 12:41 Carbon Dioxide 13 mmol/L (22-29) L 11/23/24 12:41 Anion Gap 31.9 (5-19) H 11/23/24 12:41 BUN 110 mg/dL (8-23) H* D 11/23/24 12:41 Creatinine 4.6 mg/dL (0.7-1.2) H 11/23/24 12:41 GFR Calculation 12.9 mL/min (90-130) L 11/23/24 12:41 Glucose 1296 mg/dL (65-115) H* 11/23/24 12:41 POC Glucose > 600 mg/dL (70-110) H* 11/23/24 16:22 Estimat Average Glucose 361 11/23/24 12:41 Hemoglobin A1c 14.2 % (4.0-6.0) H 11/23/24 12:41 Calculated Osmolality 321 mOsm/kg (285-295) H 11/23/24 12:41 Lactic Acid 4.8 mmol/L (0.5-2.2) H* 11/23/24 13:45 Lactic Acid (Sepsis) 3.9 mmol/L (0.5-2.2) H 11/23/24 16:18 Calcium 10.1 mg/dL (8.5-10.5) 11/23/24 16:18 Phosphorus 6.1 mg/dL (2.5-4.5) H 11/23/24 12:41 Magnesium 2.2 mg/dL (1.7-2.3) 11/23/24 16:18 Total Bilirubin 0.8 mg/dL (0.15-1.2) 11/23/24 12:41 AST 11 U/L (0-40) 11/23/24 12:41 ALT 9 U/L (0-41) 11/23/24 12:41 Alkaline Phosphatase 216 U/L (40-130) H 11/23/24 12:41 Creatine Kinase 157 U/L (39-308) 11/23/24 12:41 Total Protein 8.4 g/dL (6.6-8.7) 11/23/24 12:41 Albumin 4.4 g/dL (3.5-5.2) 11/23/24 12:41 Globulin 4.0 g/dL (1.3-4.6) 11/23/24 12:41 TSH 1.60 uIU/mL (0.27-4.20) 11/23/24 12:41 Urine Color Yellow (Yellow) 11/23/24 13:43 Urine Appearance Turbid (CLEAR) A 11/23/24 13:43 Urine pH 5.0 (5-7) 11/23/24 13:43 Ur Specific [place] 1.018 (1.005-1.030) 11/23/24 13:43 Urine Protein 1+ (Negative) A 11/23/24 13:43 Urine Glucose (UA) 3+ (Normal) H 11/23/24 13:43 Urine Ketones Negative (Negative) 11/23/24 13:43 Urine Blood 3+ (Negative) A 11/23/24 13:43 Urine Nitrate Negative (Negative) 11/23/24 13:43 Urine Bilirubin Negative (Negative) 11/23/24 13:43 Urine Urobilinogen 0.2 mg/dL (Negative) 11/23/24 13:43 Ur Leukocyte Esterase 3+ (Negative) A 11/23/24 13:43 Urine RBC 21-50 /hpf (0-2) H 11/23/24 13:43 Urine WBC >100 /hpf (0-5) H 11/23/24 13:43 Ur Squamous Epith Cells 0-5 /hpf (0-5) 11/23/24 13:43 Amorphous Sediment Not Reportable 11/23/24 13:43 Urine Bacteria 4+ /hpf (NONE) H 11/23/24 13:43 Hyaline Casts 7.13 /lpf 11/23/24 13:43 Urine Yeast 4+ /hpf H 11/23/24 13:43 Serum Ketones Negative (Negative) 11/23/24 12:41 A&P Assessment and plan 1. Hyperosmolar hyperglycemic state (HHS): 64-year-old male with a known history of diabetes mellitus, recently added insulin to his regimen however has only taken 1 dose on . He presented to the emergency room with altered mental status, delirium and falling at home. Patient lives alone at home however did make it to see his business process engineer this past . Found to have evidence of hyperosmolar hyperglycemic nonketotic state with a blood sugar of over 1200, anion gap of 31.9, bicarb of 13. Patient is currently on an insulin drip via [facility] protocol. Monitor CMP every 4 hours, mag every 4 hours, phosphorus every 8 hours. IV fluid normal saline to continue at 150 cc an hour. Once blood sugar is less than 250, we will switch to dextrose containing fluid. Insulin and blood sugar checks per protocol. Check HbA1c, last checked in March 2024 2. Hyperkalemia: Hyperkalemia with potassium of 8.9. He has received calcium gluconate 1 g x 2 in the emergency room. Currently started on an insulin drip. To check CMP every 4 hours to assess for serial improvement. Kayexalate 15 mg p.o. x 1. Wide QRS complex most likely related to hyperkalemia. Continuous telemetry monitoring to be maintained in the ICU. 3. Cystitis: Acute cystitis suspected. Urine analysis with greater than 100 WBCs 3+ leukocyte esterase, urinary retention of 1000 cc. Start piperacillin/tazobactam and IV vancomycin empirically while pending urine culture. Blood culture additionally taken and awaited. Obtain renal ultrasound to assess for hydronephrosis or obstruction. 4. Pseudohyponatremia: Sodium 108 on CMP. Likely pseudohyponatremia. Corrected for blood sugar of 1200 the sodium would be at 134. Normal saline as noted above per [facility] protocol. 5. Wide QRS complex present on electrocardiography: Wide QRS complexes most likely related to severe hyperkalemia. Continuous telemetry monitoring to be obtained. Obtain serial EKG once potassium is corrected. Calcium gluconate has been given in the emergency room. 6. Acute kidney injury superimposed on CKD: DIANELYS on CKD. Creatinine today at 4.6. Patient's baseline appears to be around 2.5. He did have urinary retention of about 1000 cc. Suspect worsening may be related to dehydration versus urinary retention Renal ultrasound is awaited. Hydration as above. Plan: DVT prophylaxis: Heparin 5000 subcutaneously every 12 hours Full code PDMP PDMP Reviewed: Not Reviewed Attestations Medical Necessity Statement*: Greater than 2 midnight admission will be needed. Critical Care Time: The high probability of a clinically significant, sudden or life threatening deterioration of the patient's [ Endocrine, ID, cardiac ,metabolic, renal] system(s) required my full and direct attention, intervention and personal management. The critical care time is as shown. This time is in addition to time spent performing any reported procedures but includes the following: [x] Data and vital sign review and interpretation [x] Patient assessment, examination and intervention [x] Documentation [x] Medication orders and management Critical Care Time (min): 60 Coding Level of Care Code Critical Care >/= 30 minutes Diagnoses Hyperosmolar hyperglycemic state (HHS) E11.00 Hyperkalemia E87.5 Cystitis N30.90 Pseudohyponatremia R79.89 Wide QRS complex present on electrocardiography R94.31 Acute kidney injury superimposed on CKD N17.9; N18.9
[2024-11-23 14:37] LABS: Lactic Sepsis W/Reflex 4.8 mmol/L (0.5-2.2)
--- NOTE | 2024-11-23 14:38 | PC.NURSE ---
PT MENTATION IMPROVING. PT RECALLS FALLING THIS MORNING WHILE TRYING TO GET BACK TO HIS BED. PT STATES HE HAS BEEN COMPLIANT WITH HOME MEDICATIONS.
[2024-11-23 14:51] LABS: Glucose Urine UA 3+ (Normal); Nitrate Urine Negative (Negative); Specific Gravity, Urine 1.018 (1.005-1.030)
[2024-11-23 14:57] LABS: Add Urine Microscopic? YES; Universal Test for UA Present (0)
[2024-11-23] MEDS: heparin 5,000 unit/mL INJ 1 mL 5000 UNIT SUBCUT (15:27)
--- NOTE | 2024-11-23 15:49 | PHA.VACGOAL ---
Vancomycin Goal - Goal Vancomycin Goal:: 15-20 mg/L Vancomycin Indication:: Other - Therapy Current therapy:: Pip/Tazo Day of therpy:: Day []of [] . Actual body weight (kg): 201 lb - Data Labs: WBC 23.51 10^3/uL (3.29-11.43) H 11/23/24 12:41 RBC 6.01 10^6/uL (3.85-5.65) H 11/23/24 12:41 Hgb 15.10 g/dL (11.27-16.99) 11/23/24 12:41 Hct 45.6 % (37-53) 11/23/24 12:41 MCV 75.9 fl (82-101) L 11/23/24 12:41 MCH 25.1 pg (27-33) L 11/23/24 12:41 MCHC 33.1 g/dL (30-55) 11/23/24 12:41 RDW 14.1 % (12.1-15.1) 11/23/24 12:41 Sodium 105 mmol/L (136-145) L* 11/23/24 12:41 Potassium 8.9 mmol/L (3.5-5.1) H* 11/23/24 12:41 Chloride 69 mmol/L (98-107) L 11/23/24 12:41 Carbon Dioxide 13 mmol/L (22-29) L 11/23/24 12:41 Anion Gap 31.9 (5-19) H 11/23/24 12:41 BUN 110 mg/dL (8-23) H* D 11/23/24 12:41 Creatinine 4.6 mg/dL (0.7-1.2) H 11/23/24 12:41 GFR Calculation 12.9 mL/min (90-130) L 11/23/24 12:41 Last dialysis session:: N/A Treatment plan:: new consult Regimen:: INITIAL LOADING DOSE OF 1000 MG X 1. PLAN TO PULSE DOSE DUE TO RENAL FUNCTION. Follow up:: WILL OBTAIN A TROUGH ON 11/24 24 HOURS POST LOADING DOSE.
[2024-11-23 15:59] LABS: Reflex Lactate Order REFLEX LACTIC ORDERD
[2024-11-23 16:14] LABS: Estmated Average Glucose 361; Hemoglobin A1C 14.2 % (4.0-6.0)
[2024-11-23 16:44] LABS: Lactic Acid level (Lactate) 3.9 mmol/L (0.5-2.2)
[2024-11-23 16:49] LABS: Anion Gap 27.5 (5-19); Calcium 10.1 mg/dL (8.5-10.5); Carbon Dioxide 10 mmol/L (22-29); Chloride 86 mmol/L (98-107); Creatinine Clr Calc Pharmacy 17.7858; Magnesium 2.2 mg/dL (1.7-2.3); Potassium 5.5 mmol/L (3.5-5.1)
[2024-11-23 16:54] LABS: Blood Urea Nitrogen 104 mg/dL (8-23); Sodium 118 mmol/L (136-145)
--- NOTE | 2024-11-23 16:57 | USR_ITS ---
PROCEDURE INFORMATION: Exam: US Retroperitoneal, Complete, Kidneys and Bladder Exam date and time: 11/23/2024 8:58 PM Age: 64 years old Clinical indication: Other: Patient is 2 weeks S/P prostatectomy, with prior diagnosis of bladder outlet obstruction June 2024. Now with altered mental status , hyponatremia, hypokalemia. Elevated bun = 103, elevated creatinine = 4.2; Prior surgery; Surgery date: <1 month; Surgery type: Prostatectomy 2 weeks ago; Additional info: Assess for hydronephrosis TECHNIQUE: Imaging protocol: Real-time ultrasound of the retroperitoneum with image documentation. Complete exam focused on the bilateral kidneys and urinary bladder. COMPARISON: CT abdomen pelvis wo con [id number] 06/26/2024 4:22 AM FINDINGS: Right kidney: Right kidney measures 6.4 x 7 x 10.1 cm with cortical thickness of 1.7 cm. Mild increased echogenicity of renal parenchyma demonstrated. The right kidney contains cysts largest a right upper pole 2.9 cm cyst. Left kidney: The left kidney measures 4 x 4.7 x 11.7 cm and demonstrate mild increased parenchymal echogenicity and demonstrate moderate to severe hydronephrosis and hydroureter. Urinary bladder: Urinary bladder contains Cortes catheter is mildly distended. Other findings: There is moderate to severe hydronephrosis and hydroureter. There are no stones within the kidneys or masses; No perirenal fluid collections present US/US renal BI* [id number] IMPRESSION: Findings of moderate to severe bilateral hydroureteronephrosis and hydroureter with echogenic kidneys suggesting medical renal disease Findings of right upper pole renal cyst Cortes catheter in a mildly distended bladder.
[2024-11-23] MEDS: SODIUM BICARBONATE IV (17:26)
[2024-11-23] MEDS: DEXTROSE 5% IV (17:26)
[2024-11-23 17:49] LABS: Osmolality Calculated 321 mOsm/kg (285-295)
[2024-11-23 17:52] LABS: Glucose 853 mg/dL (65-115)
[2024-11-23] MEDS: INSULIN REGULAR IN 0.9 % NACL 100 UNIT/100 ML BAG 32.5 UNIT IV (18:11)
--- NOTE | 2024-11-23 18:26 | PC.NURSE ---
Dr. Estevez ordered to keep insulin drip running at 32.5 until the next CMP is drawn. Doctor ordered to change to dextrose 5% IV fluid per insulin drip protocol once sugar levels drop to 201-250.
[2024-11-23 19:48] LABS: Anion Gap 26.6 (5-19); Calcium 10.6 mg/dL (8.5-10.5); Carbon Dioxide 14 mmol/L (22-29); Chloride 91 mmol/L (98-107); Creatinine Clr Calc Pharmacy 19.4797; Glucose 378 mg/dL (65-115); Osmolality Calculated 312 mOsm/kg (285-295); Potassium 4.6 mmol/L (3.5-5.1); Sodium 127 mmol/L (136-145)
[2024-11-23 19:49] LABS: Blood Urea Nitrogen 103 mg/dL (8-23)
[2024-11-23 20:30] LABS: Magnesium 2.4 mg/dL (1.7-2.3)
[2024-11-23] MEDS: INSULIN REGULAR IN 0.9 % NACL 100 UNIT/100 ML BAG 16.2 UNIT IV (21:15)
[2024-11-23 22:46] LABS: Base Excess VBG -6.5 mmol/L (-3.0-3.0); Blood Gas Operator Identificat SAM; Blood Gas Sample Type Venous; HCO3 VBG 18.6 mmol/L (24-28); PCO2 VBG 35.3 mmHg (41-51); PO2 VBG 44.9 mmHg (25-40); Venous Blood Gas Hematocrit 46.1 % (42-52); pH VBG 7.33 (7.32-7.42)
[2024-11-23 23:20] LABS: Magnesium 2.3 mg/dL (1.7-2.3)
[2024-11-23 23:23] LABS: Anion Gap 24.8 (5-19); Calcium 10.6 mg/dL (8.5-10.5); Carbon Dioxide 17 mmol/L (22-29); Chloride 91 mmol/L (98-107); Creatinine Clr Calc Pharmacy 21.5302; Glucose 156 mg/dL (65-115); Osmolality Calculated 301 mOsm/kg (285-295); Potassium 4.8 mmol/L (3.5-5.1); Sodium 128 mmol/L (136-145)
[2024-11-23 23:24] LABS: Blood Urea Nitrogen 101 mg/dL (8-23)
[2024-11-24] VITALS (50 sets, daily range): BP systolic 91–139; BP diastolic 64–92; PULSE 75–101; RESP 7–25; TEMP 36.2–36.4; O2SAT 90–99; BMI 31.4
[2024-11-24] MEDS: piperacillin-tazobactam 3.375 GM in sodium chloride 0.9% (plus) 50 ML IV ×2 (02:50→14:46)
[2024-11-24 03:29] LABS: Base Excess VBG -6.3 mmol/L (-3.0-3.0); Blood Gas Sample Type Venous; HCO3 VBG 21.0 mmol/L (24-28); PCO2 VBG 47.7 mmHg (41-51); PO2 VBG 29.2 mmHg (25-40); Venous Blood Gas Hematocrit 43.8 % (42-52); pH VBG 7.25 (7.32-7.42)
[2024-11-24 03:51] LABS: Anion Gap 21.9 (5-19); Calcium 9.8 mg/dL (8.5-10.5); Carbon Dioxide 19 mmol/L (22-29); Chloride 89 mmol/L (98-107); Creatinine Clr Calc Pharmacy 19.4797; Glucose 329 mg/dL (65-115); Osmolality Calculated 303 mOsm/kg (285-295); Potassium 4.9 mmol/L (3.5-5.1); Sodium 125 mmol/L (136-145)
[2024-11-24 03:52] LABS: Magnesium 2.1 mg/dL (1.7-2.3)
[2024-11-24 04:02] LABS: Blood Urea Nitrogen 98 mg/dL (8-23)
[2024-11-24] MEDS: heparin 5,000 unit/mL INJ 1 mL 5000 UNIT SUBCUT ×2 (04:37→14:46)
[2024-11-24] MEDS: pantoprazole 40 mg SDV IVP (04:38)
--- NOTE | 2024-11-24 05:08 | P.EN_ITS ---
Event Note Event Note: DKA: Patient BMP, VBG, potassium and sodium were monitored every Q4. glucose every hour, Anion gap slowly closing. Patient producing adequate amount of urine output and overall renal parameters are also improving. Insulin has been adjusted with respect to the glucose readings and anion gap. Fluids were also managed with respect to the sodium and glucose levels Potassium monitoring/correction was also being done considering patient has DIANELYS and therefore was done cautiously. Continue management according to the next reported blood works Event Notes Attestations Time Spent in Patient Care: 16 - 35 minutes (>than 50% of time sp ent in counselling and/or direct pt care on unit) .
--- NOTE | 2024-11-24 06:27 | PC.NURSE ---
Insulin titration and lab orders: Patient's blood sugar was dropping drastically, Dr. Negrete was notified and gave multiple verbal orders including orders to contact him with hourly blood sugars before titration. Dr. Negrete also gave multiple lab draw orders.
[2024-11-24 07:11] LABS: Base Excess VBG -7.1 mmol/L (-3.0-3.0); Blood Gas Allen Test Pos; Blood Gas Operator Identificat MONRO; Blood Gas Sample Site Not specified; Blood Gas Sample Type Venous; HCO3 VBG 19.9 mmol/L (24-28); PCO2 VBG 44.4 mmHg (41-51); PO2 VBG 37.0 mmHg (25-40); Venous Blood Gas Hematocrit 43.7 % (42-52); pH VBG 7.26 (7.32-7.42)
[2024-11-24 07:13] LABS: Blood Gas LPM 2.0 %
[2024-11-24 07:30] LABS: Anion Gap 21.5 (5-19); Calcium 9.6 mg/dL (8.5-10.5); Carbon Dioxide 18 mmol/L (22-29); Chloride 91 mmol/L (98-107); Creatinine Clr Calc Pharmacy 21.2777; Glucose 276 mg/dL (65-115); Osmolality Calculated 303 mOsm/kg (285-295); Potassium 4.5 mmol/L (3.5-5.1); Sodium 126 mmol/L (136-145)
[2024-11-24 07:31] LABS: Lactate (Lactic Acid level) 1.7 mmol/L (0.5-2.2); Magnesium 2.1 mg/dL (1.7-2.3)
[2024-11-24 07:32] LABS: Blood Gas Operator Identificat HARKR
[2024-11-24 07:34] LABS: Blood Urea Nitrogen 99 mg/dL (8-23)
[2024-11-24 11:33] LABS: Hematocrit 39.8 % (37-53); Hemoglobin 13.70 g/dL (11.27-16.99); Mean Corpuscular HGB Conc 34.4 g/dL (30-55); Mean Corpuscular Hemoglobin 25.3 pg (27-33); Mean Corpuscular Volume 73.4 fl (82-101); Nucleated Red Blood Cells % 0 %; Platelet Count 214 10^3/cmm (157-399); Red Blood Count 5.42 10^6/uL (3.85-5.65); White Blood Count 19.11 10^3/uL (3.29-11.43)
[2024-11-24 11:57] LABS: Anion Gap 19.1 (5-19); Calcium 9.7 mg/dL (8.5-10.5); Carbon Dioxide 19 mmol/L (22-29); Chloride 94 mmol/L (98-107); Creatinine Clr Calc Pharmacy 21.8377; Glucose 205 mg/dL (65-115); Magnesium 2.1 mg/dL (1.7-2.3); Osmolality Calculated 302 mOsm/kg (285-295); Potassium 4.1 mmol/L (3.5-5.1); Sodium 128 mmol/L (136-145)
[2024-11-24 12:07] LABS: Blood Urea Nitrogen 96 mg/dL (8-23)
--- NOTE | 2024-11-24 14:38 | PC.NURSE ---
Patient was sleeping and oxygen saturations dropped to 81. Dr. Estevez was contacted about possible CPAP needed for patient per family. Dr. Estevez ordered for a CPAP for the patient.
[2024-11-24 15:59] LABS: Anion Gap 18.1 (5-19); Calcium 9.3 mg/dL (8.5-10.5); Carbon Dioxide 20 mmol/L (22-29); Chloride 93 mmol/L (98-107); Creatinine Clr Calc Pharmacy 23.0509; Glucose 214 mg/dL (65-115); Osmolality Calculated 298 mOsm/kg (285-295); Potassium 4.1 mmol/L (3.5-5.1); Sodium 127 mmol/L (136-145)
[2024-11-24 16:00] LABS: Magnesium 2.2 mg/dL (1.7-2.3)
[2024-11-24 16:01] LABS: Blood Urea Nitrogen 91 mg/dL (8-23)
--- NOTE | 2024-11-24 16:53 | PM.PN ---
Subjective Subjective: Anion gap is slowly improving. By this afternoon gap is down to 18. If remains stable plan to transition to subcu insulin Metabolic abnormalities are improving however patient is still remaining to be lethargic and confused. Medications: Reviewed: Yes Vitals/I&O/Wt Last Vital Signs Temp 97.2 F L 11/24/24 04:30 Pulse 86 11/24/24 16:00 Resp 16 11/24/24 16:00 BP 135/79 11/24/24 16:00 Pulse Ox 98 11/24/24 16:00 O2 Del Method Nasal Cannula 11/24/24 16:00 O2 Flow Rate 2 11/24/24 16:00 FiO2 21 11/23/24 13:10 11/24/24 11/24/24 11/24/24 06:59 14:59 22:59 Intake Total 1075.469 / 2722.108 1101.833 / 1101.833 8.6 / 1110.433 Output Total 700 / 4200 Balance 375.469 / -5287.193 0177.833 / 1101.833 8.6 / 1110.433 Weight last 48 hrs Weight 93.939 kg Weight 91.172 kg Weight 58.967 kg Physical Exam Narrative: General: lethargic, AO x2-3 HEENT: PERRLA, pupils bilaterally equal and reactive, pallors not present Chest: Normal vesicular breath sounds, no added sounds, equal good air entry bilaterally CVS: S1-S2 regular, no murmurs, no tachycardia, no gallops, no rubs Abdomen: Soft, nontender, no organomegaly, bowel sounds present Neuro: No focal deficits, no facial deformity, AO x3, power 5/5 in all limbs Extremities: dehydration+, parched mucus membranes Urinary Catheter Management: Cortes: Cath Placed During This Visit: yes Reason for Continuing Indwelling Catheter: Accurate Measurement of Urinary Output in Critically Ill Patients Urinary Catheter Date of Insertion: 11/23/24 Urinary Catheter Time of Insertion: 14:32 Data 11/24/24 11:24 11/24/24 15:08 Micro: Microbiology 11/23/24 13:45 Blood Culture - Preliminary Blood NEGATIVE TO DATE 11/23/24 13:45 Blood Culture - Preliminary Blood NEGATIVE TO DATE A&P Assessment and plan 1. Hyperosmolar hyperglycemic state (HHS): 64-year-old male with a known history of diabetes mellitus, recently added insulin to his regimen however has only taken 1 dose on . He presented to the emergency room with altered mental status, delirium and falling at home. 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 Found to have evidence of hyperosmolar hyperglycemic nonketotic state with a blood sugar of over 1200, anion gap of 31.9, bicarb of 13. Patient is currently on an insulin drip via [facility] protocol. Monitor CMP every 4 hours, mag every 4 hours, phosphorus every 8 hours. IV fluid normal saline to continue at 150 cc an hour. Once blood sugar is less than 250, we will switch to dextrose containing fluid. Insulin and blood sugar checks per protocol. Check HbA1c, last checked in March 2024 2. Hyperkalemia: Hyperkalemia with potassium of 8.9. He has received calcium gluconate 1 g x 2 in the emergency room. Currently started on an insulin drip. To check CMP every 4 hours to assess for serial improvement. Kayexalate 15 mg p.o. x 1. Wide QRS complex most likely related to hyperkalemia. Continuous telemetry monitoring to be maintained in the ICU. 3. Cystitis: Acute cystitis suspected. Urine analysis with greater than 100 WBCs 3+ leukocyte esterase, urinary retention of 1000 cc. Start piperacillin/tazobactam and IV vancomycin empirically while pending urine culture. Blood culture additionally taken and awaited. Obtain renal ultrasound to assess for hydronephrosis or obstruction. 4. Pseudohyponatremia: Sodium 108 on CMP. Likely pseudohyponatremia. Corrected for blood sugar of 1200 the sodium would be at 134. Normal saline as noted above per [facility] protocol. 5. Wide QRS complex present on electrocardiography: Wide QRS complexes most likely related to severe hyperkalemia. Continuous telemetry monitoring to be obtained. Obtain serial EKG once potassium is corrected. Calcium gluconate has been given in the emergency room. 6. Acute kidney injury superimposed on CKD: DIANELYS on CKD. Creatinine today at 4.6. Patient's baseline appears to be around 2.5. He did have urinary retention of about 1000 cc. Suspect worsening may be related to dehydration versus urinary retention Renal ultrasound is awaited. Hydration as above. Plan: DVT prophylaxis: Heparin 5000 subcutaneously every 12 hours Full code November 24, 2024 EKG changes resolved. Hypokalemia resolved. Potassium at 4.1 this afternoon at 3 PM. Blood sugar maintained in the 200 range on an insulin drip. Additional fluids D5 normal saline at this time. Creatinine improving at 3.6. Urine output 1700 cc. Leukocytosis improving at 19,000. Renal ultrasound showing moderate to severe bilateral hydroureteronephrosis as seen on previous pelvic CTs, known finding related to his chronic bladder outlet obstruction. anion gap improving at 18. EKG normalized. Overall patient's labs are significantly improved over previous. Plan to transition to subcutaneous insulin once anion gap is closed. Continue IV Zosyn and vancomycin for empiric treatment of UTI. Pending urine and blood cultures. HbA1c returned at 14 correlating with uncontrolled diabetes mellitus. Continues to be lethargic, though no focal deficits on exam. Will wake up after much stimulation and answer questions appropriately. Occasional alcohol use reported. Add thiamine with dextrose containing fluid. PDMP PDMP Reviewed: Not Reviewed Attestations Medical Necessity Statement*: Continued insulin drip, need to monitor anion gap, treatment of HHS, need for iv abx Coding Level of Care Code Acute Code for Chg Fwd High MDM includes number and complexity of problems actively addressed during encounter, amount and/or complexity of data reviewed/ordered and described risk of complication, morbidity or mortality of management as documented Diagnoses Hyperosmolar hyperglycemic state (HHS) E11.00 Hyperkalemia E87.5 Cystitis N30.90 Pseudohyponatremia R79.89 Wide QRS complex present on electrocardiography R94.31 Acute kidney injury superimposed on CKD N17.9; N18.9
[2024-11-24] MEDS: vancomycin 500 MG in sodium chloride 0.9% (plus) 100 ML 200 MG IV (17:28)
[2024-11-24 21:44] LABS: Alanine Aminotransferase 7 U/L (0-41); Albumin Level 3.5 g/dL (3.5-5.2); Alkaline Phosphatase 131 U/L (40-130); Anion Gap 18.8 (5-19); Aspartate Amino Transferase 12 U/L (0-40); Calcium 9.2 mg/dL (8.5-10.5); Carbon Dioxide 19 mmol/L (22-29); Chloride 95 mmol/L (98-107); Creatinine Clr Calc Pharmacy 23.7095; Globulin 2.9 g/dL (1.3-4.6); Glucose 223 mg/dL (65-115); Osmolality Calculated 301 mOsm/kg (285-295); Potassium 3.8 mmol/L (3.5-5.1); Sodium 129 mmol/L (136-145); Total Protein 6.4 g/dL (6.6-8.7)
[2024-11-24 21:46] LABS: Blood Urea Nitrogen 86 mg/dL (8-23)
[2024-11-24] MEDS: insulin glargine 100 units/1 mL 10 UNIT SUBCUT (22:48)
--- NOTE | 2024-11-24 23:04 | P.EN_ITS ---
Event Note Event Note: Patient having DKA, anion gap closed and in the normal range as per the lab values range x 2 Started bridging around 10 PM. To continue insulin infusion for 2 hours and to bridge with insulin glargine 10 units basal to be given with some meal (started on lower dose based on weight and revision with 0.3 units/kg since patient is insulin na?ve) To start Premeal insulin 3 units 3 times daily with sliding scale and to adjust accordingly consider endocrine input with further continuity of care as outpatient Meanwhile to continue monitoring glucose every hour Event Notes Attestations Time Spent in Patient Care: 16 - 35 minutes (>than 50% of time sp ent in counselling and/or direct pt care on unit) .
[2024-11-25] VITALS (49 sets, daily range): BP systolic 86–138; BP diastolic 52–88; PULSE 76–108; RESP 8–24; TEMP 36.1–36.9; O2SAT 88–99
[2024-11-25 01:56] LABS: Alanine Aminotransferase 8 U/L (0-41); Albumin Level 3.4 g/dL (3.5-5.2); Alkaline Phosphatase 125 U/L (40-130); Anion Gap 18.6 (5-19); Aspartate Amino Transferase 12 U/L (0-40); Calcium 9.2 mg/dL (8.5-10.5); Carbon Dioxide 20 mmol/L (22-29); Chloride 93 mmol/L (98-107); Creatinine Clr Calc Pharmacy 25.9322; Globulin 3.0 g/dL (1.3-4.6); Glucose 240 mg/dL (65-115); Osmolality Calculated 299 mOsm/kg (285-295); Potassium 3.6 mmol/L (3.5-5.1); Sodium 128 mmol/L (136-145); Total Protein 6.4 g/dL (6.6-8.7)
[2024-11-25 02:04] LABS: Blood Urea Nitrogen 82 mg/dL (8-23)
[2024-11-25] MEDS: piperacillin-tazobactam 3.375 GM in sodium chloride 0.9% (plus) 50 ML IV ×2 (02:25→14:54)
[2024-11-25] MEDS: heparin 5,000 unit/mL INJ 1 mL 5000 UNIT SUBCUT ×2 (02:26→14:55)
[2024-11-25] MEDS: thiamine 100 mg/mL 2mL SDV IVP (04:11)
[2024-11-25] MEDS: pantoprazole 40 mg SDV IVP (04:11)
[2024-11-25 04:24] LABS: Hematocrit 40.3 % (37-53); Hemoglobin 13.50 g/dL (11.27-16.99); Mean Corpuscular HGB Conc 33.5 g/dL (30-55); Mean Corpuscular Hemoglobin 25.2 pg (27-33); Mean Corpuscular Volume 75.3 fl (82-101); Nucleated Red Blood Cells % 0 %; Platelet Count 210 10^3/cmm (157-399); Red Blood Count 5.35 10^6/uL (3.85-5.65); White Blood Count 14.02 10^3/uL (3.29-11.43)
[2024-11-25 04:55] LABS: Alanine Aminotransferase 8 U/L (0-41); Albumin Level 3.6 g/dL (3.5-5.2); Alkaline Phosphatase 136 U/L (40-130); Aspartate Amino Transferase 15 U/L (0-40); Calcium 9.3 mg/dL (8.5-10.5); Carbon Dioxide 20 mmol/L (22-29); Chloride 93 mmol/L (98-107); Creatinine Clr Calc Pharmacy 25.9322; Globulin 2.9 g/dL (1.3-4.6); Glucose 275 mg/dL (65-115); Osmolality Calculated 305 mOsm/kg (285-295); Sodium 130 mmol/L (136-145); Total Protein 6.5 g/dL (6.6-8.7)
[2024-11-25 04:56] LABS: Anion Gap 20.9 (5-19); Potassium 3.9 mmol/L (3.5-5.1)
[2024-11-25 04:59] LABS: Blood Urea Nitrogen 82 mg/dL (8-23)
[2024-11-25 07:59] LABS: Alanine Aminotransferase 10 U/L (0-41); Albumin Level 3.4 g/dL (3.5-5.2); Alkaline Phosphatase 133 U/L (40-130); Anion Gap 19.6 (5-19); Aspartate Amino Transferase 17 U/L (0-40); Calcium 9.1 mg/dL (8.5-10.5); Carbon Dioxide 20 mmol/L (22-29); Chloride 93 mmol/L (98-107); Creatinine Clr Calc Pharmacy 26.8243; Globulin 3.1 g/dL (1.3-4.6); Glucose 250 mg/dL (65-115); Osmolality Calculated 301 mOsm/kg (285-295); Potassium 3.6 mmol/L (3.5-5.1); Sodium 129 mmol/L (136-145); Total Protein 6.5 g/dL (6.6-8.7)
[2024-11-25 08:04] LABS: Blood Urea Nitrogen 81 mg/dL (8-23)
[2024-11-25] MEDS: insulin regular-human 100 units/1 mL 10 UNIT IVP ×2 (09:39→15:23)
[2024-11-25] MEDS: insulin glargine 100 units/1 mL 20 UNIT SUBCUT ×2 (09:39→20:20)
[2024-11-25 12:01] LABS: Alanine Aminotransferase 15 U/L (0-41); Albumin Level 3.8 g/dL (3.5-5.2); Alkaline Phosphatase 149 U/L (40-130); Anion Gap 19.1 (5-19); Aspartate Amino Transferase 23 U/L (0-40); Blood Urea Nitrogen 77 mg/dL (8-23); Calcium 9.3 mg/dL (8.5-10.5); Carbon Dioxide 20 mmol/L (22-29); Chloride 90 mmol/L (98-107); Creatinine Clr Calc Pharmacy 26.8243; Globulin 3.0 g/dL (1.3-4.6); Glucose 372 mg/dL (65-115); Osmolality Calculated 298 mOsm/kg (285-295); Potassium 4.1 mmol/L (3.5-5.1); Sodium 125 mmol/L (136-145); Total Protein 6.8 g/dL (6.6-8.7)
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
[2024-11-25] MEDS: insulin regular-human 100 units/1 mL 15 UNIT IVP (12:54)
[2024-11-25 17:48] LABS: Alanine Aminotransferase 13 U/L (0-41); Albumin Level 3.3 g/dL (3.5-5.2); Alkaline Phosphatase 133 U/L (40-130); Anion Gap 18.8 (5-19); Aspartate Amino Transferase 17 U/L (0-40); Blood Urea Nitrogen 74 mg/dL (8-23); Calcium 8.8 mg/dL (8.5-10.5); Carbon Dioxide 19 mmol/L (22-29); Chloride 95 mmol/L (98-107); Creatinine Clr Calc Pharmacy 25.1986; Globulin 2.9 g/dL (1.3-4.6); Glucose 205 mg/dL (65-115); Osmolality Calculated 296 mOsm/kg (285-295); Potassium 3.8 mmol/L (3.5-5.1); Sodium 129 mmol/L (136-145); Total Protein 6.2 g/dL (6.6-8.7)
[2024-11-25 21:53] LABS: Alanine Aminotransferase 12 U/L (0-41); Albumin Level 3.1 g/dL (3.5-5.2); Alkaline Phosphatase 124 U/L (40-130); Anion Gap 17.7 (5-19); Aspartate Amino Transferase 16 U/L (0-40); Blood Urea Nitrogen 73 mg/dL (8-23); Calcium 8.7 mg/dL (8.5-10.5); Carbon Dioxide 18 mmol/L (22-29); Chloride 97 mmol/L (98-107); Creatinine Clr Calc Pharmacy 25.1986; Globulin 3.0 g/dL (1.3-4.6); Glucose 150 mg/dL (65-115); Osmolality Calculated 292 mOsm/kg (285-295); Potassium 3.7 mmol/L (3.5-5.1); Sodium 129 mmol/L (136-145); Total Protein 6.1 g/dL (6.6-8.7)
[2024-11-26] VITALS (29 sets, daily range): BP systolic 90–131; BP diastolic 56–77; PULSE 73–110; RESP 16–29; TEMP 36.1–36.7; O2SAT 94–100
[2024-11-26] MEDS: piperacillin-tazobactam 3.375 GM in sodium chloride 0.9% (plus) 50 ML IV ×2 (02:42→13:41)
[2024-11-26] MEDS: heparin 5,000 unit/mL INJ 1 mL 5000 UNIT SUBCUT ×2 (02:42→15:02)
[2024-11-26 04:10] LABS: Hematocrit 35.3 % (37-53); Hemoglobin 11.90 g/dL (11.27-16.99); Mean Corpuscular HGB Conc 33.7 g/dL (30-55); Mean Corpuscular Hemoglobin 24.8 pg (27-33); Mean Corpuscular Volume 73.7 fl (82-101); Nucleated Red Blood Cells % 0 %; Platelet Count 183 10^3/cmm (157-399); Red Blood Count 4.79 10^6/uL (3.85-5.65); White Blood Count 10.53 10^3/uL (3.29-11.43)
[2024-11-26 04:38] LABS: Alanine Aminotransferase 11 U/L (0-41); Albumin Level 3.3 g/dL (3.5-5.2); Alkaline Phosphatase 127 U/L (40-130); Anion Gap 18.7 (5-19); Aspartate Amino Transferase 15 U/L (0-40); Blood Urea Nitrogen 67 mg/dL (8-23); Calcium 9.0 mg/dL (8.5-10.5); Carbon Dioxide 19 mmol/L (22-29); Chloride 97 mmol/L (98-107); Creatinine Clr Calc Pharmacy 27.7185; Globulin 2.8 g/dL (1.3-4.6); Glucose 135 mg/dL (65-115); Osmolality Calculated 293 mOsm/kg (285-295); Potassium 3.7 mmol/L (3.5-5.1); Sodium 131 mmol/L (136-145); Total Protein 6.1 g/dL (6.6-8.7)
[2024-11-26] MEDS: thiamine 100 mg/mL 2mL SDV IVP (05:25)
[2024-11-26] MEDS: pantoprazole 40 mg SDV IVP (05:25)
--- NOTE | 2024-11-26 11:37 | PM.PN ---
Documented by User: CARRINGTON Ledezma STDKANCHAN 11/26/24 16:23 Subjective Subjective: Patient is doing well today. He is AOx4. He had some apprehension about correctly using insulin lantus and lispro after discharge. He had a depressed mood this morning which has resolved since his family has arrived. He plans to live with them in [facility] once he is discharged, and his family has agreed to this plan. Vitals/I&O/Wt Last Vital Signs Temp 96.9 F L 11/26/24 07:30 Pulse 85 11/26/24 08:00 Resp 21 H 11/26/24 08:00 BP 101/62 11/26/24 08:00 Pulse Ox 99 11/26/24 07:30 O2 Del Method Nasal Cannula 11/26/24 04:00 O2 Flow Rate 1 11/26/24 04:00 FiO2 21 11/25/24 03:24 11/25/24 11/26/24 11/26/24 22:59 06:59 14:59 Intake Total 290 / 530 240 / 240 Output Total 2049 / 2049 900 / 2950 Balance -1760 / -1520 -900 / -2420 240 / 240 Weight last 48 hrs Weight 94.347 kg Weight 94.347 kg Physical Exam Const: COMMON NORMALS: patient oriented x3 and alert Resp: COMMON NORMALS: normal respiratory effort and clear to auscultation bilaterally AUSCULTATION: clear to auscultation bilaterally Cardio: COMMON NORMALS: regular rate, regular rhythm, S1 normal heart sound present, S2 normal heart sound present and No murmurs present (Cardio) RATE: regular rate RHYTHM: regular rhythm HEART SOUNDS: S1 normal heart sound present and S2 normal heart sound present GI: COMMON NORMALS: Normal to inspection, nondistended, normoactive bowel sounds present Neuro: COMMON NORMALS: patient oriented x3 SENSORIUM/ORIENTATION: Yes alert Psych: MOOD & AFFECT: Yes depressed mood Urinary Catheter Management: Cortes: Cath Placed During This Visit: yes Reason for Continuing Indwelling Catheter: Chronic Indwelling Urinary Catheter on Admission Urinary Catheter Date of Insertion: 11/23/24 Urinary Catheter Time of Insertion: 14:32 Data 11/27/24 02:48 11/27/24 02:48 Micro: Microbiology 11/23/24 13:43 Urine Culture - Preliminary Urine,Clean Catch Yeast species A&P Assessment and plan 1. Hyperosmolar hyperglycemic state (HHS): 2. Hyperglycemia: 3. Acute kidney injury superimposed on CKD: 4. Hyperkalemia: 5. Cystitis: 6. BPH with urinary obstruction: Plan: Plan Patient is stable and recovering well. His family is present and will be assuming care of him once he discharges. He will no longer require IV antibiotics or fluids. We will monitor for one more night to ensure anion gap remains closed. Plan to discharge tomorrow morning. WBC has normalized at 10.53. Anion gap remains closed at 18.7. BUN/Cr are trending to normal at 67 and 3.0 respectively. Diabetic education was performed. Patient and family were present and alert. Patient was educated on using 25 insulin Lantus once a day at the same time each day to maintain basal insulin level. Patient was instructed to administer 5 units insulin lispro before each meal. Patient and family were observed assembling the insulin pen, changing the unit dosage, and administering into the abdomen. Recommended administering into abdomen or thigh using a different site each injection. Patient was also educated on insulin storage. We recommended using his DexStratio continuous glucose monitoring device. Patient was instructed on the symptoms of hypoglycemia (sweating, dizziness, fatigue) and how to correct hypoglycemia with glucose tablets on hand. Patient will also skip administering an insulin lispro dosage if his blood sugar is in the 70-100 range. Patient and family plan to establish care with a new doper in [facility]. Patient and family voiced understanding of the education. PDMP PDMP Reviewed: Not Reviewed Attestations Medical Necessity Statement*: monitor stable anion gap Coding Level of Care Code Acute Code for Chg Fwd Diagnoses Hyperosmolar hyperglycemic state (HHS) E11.00 Hyperglycemia R73.9 Acute kidney injury superimposed on CKD N17.9; N18.9 Hyperkalemia E87.5 Cystitis N30.90 BPH with urinary obstruction N40.1; N13.8 Documented by User: Valeria Estevez MD 11/27/24 08:14 Physical Exam Urinary Catheter Management: Cortes: Cath Placed During This Visit: yes Data 11/27/24 02:48 11/27/24 02:48 A&P Assessment and plan 1. Hyperosmolar hyperglycemic state (HHS): 2. Hyperglycemia: 3. Acute kidney injury superimposed on CKD: 4. Hyperkalemia: 5. Cystitis: 6. BPH with urinary obstruction: Plan: Plan Patient is stable and recovering well. His family is present and will be assuming care of him once he discharges. He will no longer require IV antibiotics or fluids. We will monitor for one more night to ensure anion gap remains closed. Plan to discharge tomorrow morning. WBC has normalized at 10.53. Anion gap remains closed at 18.7. BUN/Cr are trending to baseline at 67 and 3.0 respectively. Diabetic education was performed. Patient and family were present and alert. Patient was educated on using 25 insulin Lantus once a day at the same time each day to maintain basal insulin level. Patient was instructed to administer 5 units insulin lispro before each meal. Patient and family were observed assembling the insulin pen, changing the unit dosage, and administering into the abdomen. Recommended administering into abdomen or thigh using a different site each injection. Patient was also educated on insulin storage. We recommended using his Dexcom continuous glucose monitoring device. Patient was instructed on the symptoms of hypoglycemia (sweating, dizziness, fatigue) and how to correct hypoglycemia with glucose tablets on hand. Patient will also skip administering an insulin lispro dosage if his blood sugar is less than 70. Patient and family plan to establish care with a new doper,urologist, machine stripper cutter,psychiatrist in [facility]. Patient and family voiced understanding of the education. Attending addendum: Patient seen and examined with medical student. Anion gap remains closed. Currently blood sugar ranging 120-400 range. Will adjust insulin to Lantus 25 U and 10 TID AC with meals for now. Extensive diabetes education as above in med student's note. Will monitor CMP with am labs to ensure anion gap remains closed with current insulin regimen. Cr improving to 3.0, close to baseline. Cortes can be removed at discharge and patient encouraged to continue self cath at home. D/c Glipizide and pioglitazone at discharge since starting lispro. Can continue ozempic (discussed with patient's outpatient doper). Appreciate PT assessment today. PDMP PDMP Reviewed: Not Reviewed Attestations Medical Necessity Statement*: monitor stable anion gap, adjust insulin, anticipate discharge in upcoming 24 hrs Coding Level of Care Code Acute Code for Chg Fwd Diagnoses Hyperosmolar hyperglycemic state (HHS) E11.00 Hyperglycemia R73.9 Acute kidney injury superimposed on CKD N17.9; N18.9 Hyperkalemia E87.5 Cystitis N30.90 BPH with urinary obstruction N40.1; N13.8
--- NOTE | 2024-11-26 11:46 | PC.SOCIAL ---
IMM Updated Updated pt on IMM. No questions voiced. Provided pt a copy. Initialed, dated, & timed a copy & placed in chart.
[2024-11-26] MEDS: insulin regular-human 100 units/1 mL 10 UNIT IVP (19:50)
[2024-11-26] MEDS: insulin glargine 100 units/1 mL 25 UNIT SUBCUT (21:48)
[2024-11-27] VITALS: BP 96/57; PULSE 78; RESP 15; TEMP 37.1; O2SAT 94
[2024-11-27] MEDS: heparin 5,000 unit/mL INJ 1 mL 5000 UNIT SUBCUT ×2 (04:12→16:50)
[2024-11-27] MEDS: pantoprazole 40 mg SDV IVP (04:12)
[2024-11-27 05:02] LABS: Hematocrit 34.4 % (37-53); Hemoglobin 11.60 g/dL (11.27-16.99); Mean Corpuscular HGB Conc 33.7 g/dL (30-55); Mean Corpuscular Hemoglobin 25.2 pg (27-33); Mean Corpuscular Volume 74.6 fl (82-101); Nucleated Red Blood Cells % 0 %; Platelet Count 183 10^3/cmm (157-399); Red Blood Count 4.61 10^6/uL (3.85-5.65); White Blood Count 10.41 10^3/uL (3.29-11.43)
[2024-11-27 05:31] LABS: Alanine Aminotransferase 12 U/L (0-41); Albumin Level 3.4 g/dL (3.5-5.2); Alkaline Phosphatase 139 U/L (40-130); Anion Gap 17.9 (5-19); Aspartate Amino Transferase 15 U/L (0-40); Blood Urea Nitrogen 51 mg/dL (8-23); Calcium 9.0 mg/dL (8.5-10.5); Carbon Dioxide 20 mmol/L (22-29); Chloride 96 mmol/L (98-107); Globulin 2.9 g/dL (1.3-4.6); Glucose 231 mg/dL (65-115); Osmolality Calculated 291 mOsm/kg (285-295); Potassium 3.9 mmol/L (3.5-5.1); Sodium 130 mmol/L (136-145); Total Protein 6.3 g/dL (6.6-8.7)
[2024-11-27 05:36] LABS: Creatinine Clr Calc Pharmacy 31.9828
[2024-11-27 06:00] VITALS: BP 105/70; PULSE 53; RESP 17; TEMP 36.4; O2SAT 94
[2024-11-27 07:22] VITALS: BP 127/91; PULSE 96; RESP 16; TEMP 36.2; O2SAT 98
[2024-11-27 11:18] VITALS: BP 150/76; PULSE 110; RESP 16; TEMP 36.8; O2SAT 97
[2024-11-27 15:52] VITALS: BP 113/76; PULSE 109; RESP 17; TEMP 36.8; O2SAT 97
--- NOTE | 2024-11-27 16:38 | P.PN_ITS ---
Subjective 2 Subjective: Patient had gotten off teaching and saying he is going to comply with blood sugar management and adhere to diet. Patient running fasting in the 300s allow 1 more day in the hospital for further optimization prior to discharge tomorrow teaching has been done with the family and I have spoken with the whole entire family in the room the sister who is going to be taking the patient home to [place] the patient will stay with her and most likely better managed Vitals/I&O/Wt Last Vital Signs Temp 98.3 F 11/27/24 15:52 Pulse 109 H 11/27/24 15:52 Resp 17 11/27/24 15:52 BP 113/76 11/27/24 15:52 Pulse Ox 97 11/27/24 15:52 O2 Del Method Room Air 11/27/24 15:52 O2 Flow Rate 1 11/26/24 04:00 FiO2 21 11/25/24 03:24 11/27/24 11/27/24 11/27/24 06:59 14:59 22:59 Intake Total 480 / 480 Output Total 2100 / 3200 Balance -2100 / -2430 480 / 480 Weight last 48 hrs Weight 94.347 kg Weight 94.347 kg Physical Exam 2 Narrative: General the patient is in good spirits and looking forward to feeling and doing better prior to going home tomorrow HEENT normocephalic atraumatic neck neck is supple cardiovascular heart rate is regular lungs are pretty much clear abdomen soft nontender nondistended unremarkable extremities are intact no edema has good pulses neurology has no focality lab studies lab studies reviewed and noted. Urinary Catheter Management: Cortes: Cath Placed During This Visit: yes Reason for Continuing Indwelling Catheter: Other Urinary Catheter Date of Insertion: 11/23/24 Urinary Catheter Time of Insertion: 14:32 Data 11/27/24 02:48 11/27/24 02:48 Micro: Microbiology 11/23/24 13:43 Urine Culture - Final Urine,Clean Catch Clavispora lusitaniae A&P Assessment and plan 1. Hyperglycemia due to type 2 diabetes mellitus: 2. Pseudohyponatremia: 3. Acute kidney injury superimposed on CKD: 4. Hyperosmolar hyperglycemic state (HHS): Plan: Hyperglycemia -optimizing at this time with long-acting insulin Lantus and short acting NovoLog - Plan is to discharge tomorrow. Pseudo hyponatremia - Resolving as blood sugar is being controlled Acute kidney injury on chronic kidney injury -patient had come down to her baseline creatinine - Continue to monitor and continue to keep patient medication renal friendly Hypoosmolar hyperglycemic state - Much improved - Will get glycemic level in a safer range for discharge PDMP PDMP Reviewed: Not Reviewed Attestations 2 Medical Necessity Statement*: Patient with much hypoglycemia leading at least 1 more day for optimization prior to discharge. Coding Level of Care Code 38027 Diagnoses Hyperglycemia due to type 2 diabetes mellitus E11.65 Pseudohyponatremia R79.89 Acute kidney injury superimposed on CKD N17.9; N18.9 Hyperosmolar hyperglycemic state (HHS) E11.00 Time Spent (min) 50
[2024-11-27 17:53] LABS: Hematocrit 37.8 % (37-53); Hemoglobin 12.50 g/dL (11.27-16.99); Mean Corpuscular HGB Conc 33.1 g/dL (30-55); Mean Corpuscular Hemoglobin 25.2 pg (27-33); Mean Corpuscular Volume 76.1 fl (82-101); Platelet Count 238 10^3/cmm (157-399); Red Blood Count 4.97 10^6/uL (3.85-5.65); White Blood Count 14.32 10^3/uL (3.29-11.43)
[2024-11-27 18:16] LABS: Alanine Aminotransferase 15 U/L (0-41); Albumin Level 3.7 g/dL (3.5-5.2); Alkaline Phosphatase 146 U/L (40-130); Anion Gap 19.0 (5-19); Aspartate Amino Transferase 20 U/L (0-40); Blood Urea Nitrogen 47 mg/dL (8-23); Calcium 9.4 mg/dL (8.5-10.5); Carbon Dioxide 17 mmol/L (22-29); Chloride 97 mmol/L (98-107); Creatinine Clr Calc Pharmacy 30.7983; Globulin 3.7 g/dL (1.3-4.6); Glucose 229 mg/dL (65-115); Osmolality Calculated 288 mOsm/kg (285-295); Potassium 4.0 mmol/L (3.5-5.1); Sodium 129 mmol/L (136-145); Total Protein 7.4 g/dL (6.6-8.7)
[2024-11-27 18:35] LABS: Absolute Segmented Neutrophil 11.2 10/cmm (1.6-7.1); Atypical Lymphs 0.0 % (0-5); Band Neutrophils Absolute 0.0 10^3/cmm (0.0-1.2); Total Cells Counted 100 (0-100)
[2024-11-27] MEDS: insulin glargine 100 units/1 mL 30 UNIT SUBCUT (21:00)
[2024-11-27 22:00] VITALS: BP 120/77; PULSE 103; RESP 18; TEMP 36.9; O2SAT 100
[2024-11-28] VITALS: BP 108/67; PULSE 84; RESP 17; TEMP 36.6; O2SAT 92
[2024-11-28] MEDS: heparin 5,000 unit/mL INJ 1 mL 5000 UNIT SUBCUT (02:28)
[2024-11-28] MEDS: pantoprazole 40 mg SDV IVP (04:12)
[2024-11-28 04:50] VITALS: BP 116/70; PULSE 98; RESP 17; TEMP 36.9; O2SAT 91
[2024-11-28 05:43] LABS: Hematocrit 36.2 % (37-53); Hemoglobin 11.30 g/dL (11.27-16.99); Mean Corpuscular HGB Conc 31.2 g/dL (30-55); Mean Corpuscular Hemoglobin 24.7 pg (27-33); Mean Corpuscular Volume 79.2 fl (82-101); Platelet Count 192 10^3/cmm (157-399); Red Blood Count 4.57 10^6/uL (3.85-5.65); White Blood Count 9.98 10^3/uL (3.29-11.43)
[2024-11-28 06:16] LABS: Absolute Segmented Neutrophil 6.1 10/cmm (1.6-7.1); Band Neutrophils Absolute 0.1 10^3/cmm (0.0-1.2); Total Cells Counted 100 (0-100)
[2024-11-28 06:17] LABS: Microcytosis 1+; Smudge Cells Trace
[2024-11-28 06:22] LABS: Atypical Lymphs 0.0 % (0-5)
[2024-11-28 07:28] VITALS: BP 100/62; PULSE 73; RESP 17; TEMP 36.7; O2SAT 96
--- NOTE | 2024-11-28 11:27 | P.DS_ITS ---
Discharge Providers Date of Admission: 11/23/24 14:07 Date of Discharge: November 28, 2024 Attending Provider at Admission: Valeria Estevez MD Attending Provider at Discharge: Jyoti Baumann MD Primary Care Provider: Terrell Verdin MD Diagnoses at Discharge Discharge Diagnosis 1. Hyperglycemia due to type 2 diabetes mellitus: 2. Pseudohyponatremia: 3. Acute kidney injury superimposed on CKD: 4. Hyperosmolar hyperglycemic state (HHS): Reason for Visit Reason for Visit: High Glucose Hospital Course Hospital Course Gio Ferraro is a 64 year old male With a past medical history of diabetes mellitus, history of prostatomegaly ? Malignant versus benign, history of b ladder outlet obstruction resulting in bilateral hydroureteronephrosis diagnosed in June 2024. Since then he has had prostate resection. He has been utilizing intermittent self cath at home, however more recently told his family that he was able to void by himself. Patient is presenting to the emergency room today after he reports having passed out at home. Reportedly per ER report patient was found on the ground by EMS hallucinating with altered mentation. It is not certain when he was last seen normal. Extra history is obtainable by family at bedside. His daughter reports that patient has been sick for about a week. He appeared to be slightly disoriented over the past week. Insulin had just been added to his regimen on (today is Friday) due to blood sugar noted to be in the 300-400 range. He reports compliance with his oral hypoglycemic agents. Reportedly he was recommended by his business development representative office to coming to the emergency room for evaluation last week however patient had declined. Upon arrival here today he was noted to be in hyper osmolar hyperglycemic state with blood sugar of over 1200. He has several electrolyte abnormalities along with this including hyponatremia, hyperkalemia with a potassium of 8.9 with extremely wide QRS complexes. He has been started on an insulin drip, received a 2 L IV fluid bolus. He was noted to have urinary retention of about 2000 cc. Cortes catheter is in place at this time. He denies any dysuria however questionable reliability of his history at this point in time. Patient himself is currently drowsy, lethargic in conversation but able to correctly answer orientation questions with regards to his name, age, date of . He knows he is at [facility]. Last HbA1c checked in March 2024 was at 7.4. He was recently fitted with a Dexcom however per family it has not been working. Patient not in DKA at this time doing okay. Glycemic level is better to where patient can follow-up with care at home with a primary care doctor in 7 to 14 days. Patient to keep a record of the insulin dosing along with Accu-Cheks. Patient to follow-up with sliding scale insulin high protocol for coverage just AC and at bedtime. Patient is going to be staying with his sister will be looking into for him. Patient is [employer] to assist the sister to manage him to make sure he is taking the doses the way he had been prescribed. Patient is taking 15 units of Humalog 3 times a day at meals with high-dose sliding scale coverage and bedtime Lantus coverage of 30 units. Today fasting blood sugar was 210 yesterday was 290 and 2 days later it was actually 400. Patient is making good progress. Patient does have urinary tract infection and has been treated with ciprofloxacin patient to come pleat antibiotics coverage. Physical Exam Narrative: General the patient is sitting up in no apparent distress HEENT normocephalic atraumatic neck neck is supple cardiovascular heart rate is regular lungs are pretty much clear abdomen soft nontender nondistended unremarkable extremities are intact no edema has good pulses neurology has no focality lab studies lab studies reviewed and noted. Urinary Catheter Management: Cortes: Cath Placed During This Visit: yes Reason for Continuing Indwelling Catheter: Other Urinary Catheter Date of Insertion: 11/23/24 Urinary Catheter Time of Insertion: 14:32 Discharge Data Studies Completed and Pending Completed Studies During Hospitalization Category Date Time Status CT head wo con* [id number] Stat Cat Scan 11/23/24 12:37 Completed CXRP [XR chest 1V portable [id number]] Stat Exams 11/23/24 12:37 Completed US renal BI* [id number] Routine Ultrasound 11/23/24 16:57 Completed Pending at discharge Category Date Time Status Blood Culture Stat Lab 11/23/24 13:45 Results VBG [Venous Blood Gas] Q4H Lab 11/24/24 03:10 Results VBG [Venous Blood Gas] Stat Lab 11/23/24 22:27 Results Radiology Impressions Chest X-Ray 11/23/24 12:37 IMPRESSION: Stable chest without acute abnormality. Head CT 11/23/24 12:37 IMPRESSION: 1. No acute intracranial hemorrhage or edema. 2. Mild cerebral and cerebellar atrophy and mild small vessel disease. Stable. Renal Ultrasound 11/23/24 16:57 IMPRESSION: Findings of moderate to severe bilateral hydroureteronephrosis and hydroureter with echogenic kidneys suggesting medical renal disease Findings of right upper pole renal cyst Cortes catheter in a mildly distended bladder. Laboratory Results WBC 9.98 10^3/uL (3.29-11.43) 11/28/24 04:40 RBC 4.57 10^6/uL (3.85-5.65) 11/28/24 04:40 Hgb 11.30 g/dL (11.27-16.99) 11/28/24 04:40 Hct 36.2 % (37-53) L 11/28/24 04:40 MCV 79.2 fl (82-101) L 11/28/24 04:40 MCH 24.7 pg (27-33) L 11/28/24 04:40 MCHC 31.2 g/dL (30-55) D 11/28/24 04:40 RDW 14.5 % (12.1-15.1) 11/28/24 04:40 Plt Count 192 10^3/cmm (157-399) 11/28/24 04:40 MPV 9.7 fL (7.4-10.4) 11/28/24 04:40 Neut % (Auto) 63.4 % 11/27/24 02:48 Lymph % (Auto) 20.4 % 11/27/24 02:48 [place] % (Auto) 10.8 % 11/27/24 02:48 Eos % (Auto) 1.3 % 11/27/24 02:48 Baso % (Auto) 0.6 % 11/27/24 02:48 Neut # (Auto) 6.61 10^3/uL (1.8-7.7) 11/27/24 02:48 Lymph # (Auto) 2.1 10^3/uL (0.8-4.8) 11/27/24 02:48 [place] # (Auto) 1.1 10^3/uL (0.2-0.9) H 11/27/24 02:48 Eos # (Auto) 0.1 10^3/uL (0.0-0.8) 11/27/24 02:48 Baso # (Auto) 0.1 10^3/uL (0.0-0.1) 11/27/24 02:48 Nucleated RBC % (auto) 0 % 11/27/24 02:48 Total Counted 100 (0-100) 11/28/24 04:40 Atypical Lymphs % 0.0 % (0-5) 11/28/24 04:40 Absolute Neutrophils 6.2 10^3/cmm (1.4-6.5) 11/28/24 04:40 Segmented Neutrophils 61 % 11/28/24 04:40 Band Neutrophils 1.0 % 11/28/24 04:40 Absolute Lymphocytes 2.0 10^3/cmm (1.2-3.4) 11/28/24 04:40 Lymphocytes (Manual) 20 % 11/28/24 04:40 Monocytes (Manual) 13.0 % 11/28/24 04:40 Absolute Monocytes 1.3 10^3/cmm (0.1-0.6) H 11/28/24 04:40 Eosinophils (Manual) 5 % 11/28/24 04:40 Absolute Eosinophils 0.5 10^3/cmm (0.0-0.7) 11/28/24 04:40 Basophils (Manual) 0.0 % 11/28/24 04:40 Absolute Basophils 0.0 10^3/cmm (0.0-0.2) 11/28/24 04:40 Nucleated RBCs # 0.0 /100WBC 11/27/24 02:48 Smudge Cells Trace 11/28/24 04:40 Platelet Estimate Normal (Normal) 11/28/24 04:40 Microcytosis 1+ H 11/28/24 04:40 Specimen Type Venous 11/24/24 07:03 Sample Site Not specified 11/24/24 07:03 ABG pH 7.22 (7.35-7.45) L 11/23/24 12:42 ABG pCO2 34.2 mmHg (35-45) L 11/23/24 12:42 ABG pO2 65.4 mmHg (80.0-100.0) L 11/23/24 12:42 ABG PO2/FiO2 Ratio 311 11/23/24 12:42 ABG HCO3 14.0 mmol/L (22-26) L 11/23/24 12:42 ABG O2 Saturation 90.8 11/23/24 12:42 ABG Base Excess -12.7 mmol/L (-2.0-2.0) L 11/23/24 12:42 Stewart Test Pos 11/24/24 07:03 VBG pH 7.26 (7.32-7.42) L 11/24/24 07:03 VBG pCO2 44.4 mmHg (41-51) 11/24/24 07:03 VBG pO2 37.0 mmHg (25-40) 11/24/24 07:03 VBG HCO3 19.9 mmol/L (24-28) L 11/24/24 07:03 VBG Base Excess -7.1 mmol/L (-3.0-3.0) L 11/24/24 07:03 VBG Hematocrit 43.7 % (42-52) 11/24/24 07:03 A-a O2 Gradient 5.5 mmHg (5-10) 11/23/24 12:42 Hematocrit 46.7 % (42-52) 11/23/24 12:42 Hgb O2 Saturation 89.5 % (95-100) L 11/23/24 12:42 Carboxyhemoglobin 1.4 %THgb (0.4-20.1) 11/23/24 12:42 Methemoglobin 0.0 % (0.4-1.5) L 11/23/24 12:42 Total Hemoglobin 15.2 g/dL (14-18) 11/23/24 12:42 Sodium 106.0 mmol/L (131-143) L 11/23/24 12:42 Potassium 8.2 mmol/L (3.5-5.0) H 11/23/24 12:42 Glucose > 1080.0 mg/dL (70-115) H 11/23/24 12:42 Ionized Calcium 1.2 mmol/L (1.1-1.4) 11/23/24 12:42 O2 Delivery Device Nc 11/24/24 07:03 O2 Liters/Min 2.0 % 11/24/24 07:03 FiO2 28.0 % 11/24/24 07:03 Online Advertising Analyst ID Monro 11/24/24 07:03 Sodium 129 mmol/L (136-145) L 11/27/24 17:42 Potassium 4.0 mmol/L (3.5-5.1) 11/27/24 17:42 Chloride 97 mmol/L (98-107) L 11/27/24 17:42 Carbon Dioxide 17 mmol/L (22-29) L 11/27/24 17:42 Anion Gap 19.0 (5-19) 11/27/24 17:42 BUN 47 mg/dL (8-23) H 11/27/24 17:42 Creatinine 2.7 mg/dL (0.7-1.2) H 11/27/24 17:42 GFR Calculation 23.9 mL/min (90-130) L 11/27/24 17:42 Glucose 229 mg/dL (65-115) H 11/27/24 17:42 POC Glucose 210 mg/dL (70-110) H 11/28/24 06:30 Estimat Average Glucose 361 11/23/24 12:41 Hemoglobin A1c 14.2 % (4.0-6.0) H 11/23/24 12:41 Calculated Osmolality 288 mOsm/kg (285-295) 11/27/24 17:42 Lactic Acid 4.8 mmol/L (0.5-2.2) H* 11/23/24 13:45 Lactic Acid (Sepsis) 3.9 mmol/L (0.5-2.2) H 11/23/24 16:18 Lactate 1.7 mmol/L (0.5-2.2) 11/24/24 07:03 Calcium 9.4 mg/dL (8.5-10.5) 11/27/24 17:42 Phosphorus 3.8 mg/dL (2.5-4.5) 11/24/24 15:08 Magnesium 2.2 mg/dL (1.7-2.3) 11/24/24 15:08 Total Bilirubin 0.5 mg/dL (0.15-1.2) 11/27/24 17:42 AST 20 U/L (0-40) 11/27/24 17:42 ALT 15 U/L (0-41) 11/27/24 17:42 Alkaline Phosphatase 146 U/L (40-130) H 11/27/24 17:42 Creatine Kinase 157 U/L (39-308) 11/23/24 12:41 Total Protein 7.4 g/dL (6.6-8.7) 11/27/24 17:42 Albumin 3.7 g/dL (3.5-5.2) 11/27/24 17:42 Globulin 3.7 g/dL (1.3-4.6) 11/27/24 17:42 TSH 1.60 uIU/mL (0.27-4.20) 11/23/24 12:41 Urine Color Yellow (Yellow) 11/23/24 13:43 Urine Appearance Turbid (CLEAR) A 11/23/24 13:43 Urine pH 5.0 (5-7) 11/23/24 13:43 Ur Specific [place] 1.018 (1.005-1.030) 11/23/24 13:43 Urine Protein 1+ (Negative) A 11/23/24 13:43 Urine Glucose (UA) 3+ (Normal) H 11/23/24 13:43 Urine Ketones Negative (Negative) 11/23/24 13:43 Urine Blood 3+ (Negative) A 11/23/24 13:43 Urine Nitrate Negative (Negative) 11/23/24 13:43 Urine Bilirubin Negative (Negative) 11/23/24 13:43 Urine Urobilinogen 0.2 mg/dL (Negative) 11/23/24 13:43 Ur Leukocyte Esterase 3+ (Negative) A 11/23/24 13:43 Urine RBC 21-50 /hpf (0-2) H 11/23/24 13:43 Urine WBC >100 /hpf (0-5) H 11/23/24 13:43 Ur Squamous Epith Cells 0-5 /hpf (0-5) 11/23/24 13:43 Amorphous Sediment Not Reportable 11/23/24 13:43 Urine Bacteria 4+ /hpf (NONE) H 11/23/24 13:43 Hyaline Casts 7.13 /lpf 11/23/24 13:43 Urine Yeast 4+ /hpf H 11/23/24 13:43 Vancomycin Trough 9.1 ug/mL (10-15) L 11/25/24 17:09 Serum Ketones Negative (Negative) 11/23/24 12:41 Vitals Last Vital Signs Temp 98.0 F 11/28/24 07:28 Pulse 73 11/28/24 07:28 Resp 17 11/28/24 07:28 BP 100/62 11/28/24 07:28 Pulse Ox 96 11/28/24 07:28 O2 Del Method Room Air 11/28/24 07:28 O2 Flow Rate 1 11/26/24 04:00 FiO2 21 11/25/24 03:24 Discharge Plan Discharge Patient Disposition: Home Condition: Stable Prescriptions: New fluconazole 100 mg Tablet 100 mg PO DAILY 7 Days Qty: 7 0RF ciprofloxacin HCl 500 mg Tablet 500 mg PO BID@0900,2100 5 Days Qty: 10 0RF Ozempic 0.25 mg or 0.5 mg (2 mg/3 mL) pen injector 0.25 mg SUBCUT Q7D 30 Days Qty: 1.84 0RF insulin glargine [Lantus U-100 Insulin] 100 unit/mL Solution 30 unit SUBCUT BEDTIME Qty: 10 0RF insulin lispro [Admelog U-100 Insulin lispro] 100 unit/mL solution 15 unit SUBCUT TID Qty: 13.5 0RF Rx Instructions: Patient is on scheduled insulin 15 units at meals with high insulin protocol coverage to be added to the scheduled insulin if need be Continued aspirin 81 mg tablet,chewable 81 mg PO DAILY aripiprazole [Abilify] 15 mg tablet 15 mg PO DAILY Qty: 30 11RF bupropion HCl [Wellbutrin XL] 150 mg tablet extended release 24 hr 150 mg PO QAM Qty: 30 11RF venlafaxine [Effexor XR] 150 mg capsule,extended release 24hr 150 mg PO DAILY Qty: 30 11RF Rx Instructions: Along with 75mg un=668iw total venlafaxine [Effexor XR] 75 mg capsule,extended release 24hr 75 mg PO DAILY Qty: 30 11RF Rx Instructions: Along with 75mg gs=807rx total. mirtazapine 45 mg tablet 45 mg PO .HS Qty: 30 11RF hydroxyzine HCl 50 mg tablet 50 mg PO QID PRN (Reason: insomnia) Qty: 120 11RF diazepam [Valium] 5 mg tablet 5 mg PO BID PRN (Reason: anxiety) Qty: 60 5RF (DME) Dexcom G7 Sensor Device See Rx Instructions .Route Qty: 9 3RF Rx Instructions: change every 10 days (DME) Dexcom G7 Police Aide Misc See Rx Instructions .Route Qty: 1 0RF Rx Instructions: As directed (DME) one touch ultra test srips See Rx Instructions .Route .MEDSUPPLY Qty: 100 0RF Rx Instructions: As directed (DME) glucose meter/supplies: lancets/pads/test strips See Rx Instructions .Route .MEDSUPPLY Qty: 50 0RF Rx Instructions: As directed allopurinol 100 mg tablet 100 mg PO DAILY tamsulosin 0.4 mg capsule 0.4 mg PO DAILY Qty: 30 0RF Changed carvedilol 12.5 mg tablet 6.25 mg PO BID 30 Days Qty: 30 0RF Discontinued insulin glargine [Lantus Solostar U-100 Insulin] 100 unit/mL (3 mL) insulin pen 10 unit SUBCUT DAILY Qty: 15 1RF Ozempic 0.25 mg or 0.5 mg (2 mg/3 mL) pen injector 0.25 mg SUBCUT Q7D Qty: 3 3RF pioglitazone [Actos] 45 mg tablet 45 mg PO DAILY Qty: 90 0RF glipizide 10 mg tablet 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 OK for DC: Hospitalist Discharge Order = DC NOW: Discharge Order (Routine); Ordered 11/28/24 Ordered By: Jyoti Baumann Other Ambulatory Orders: DME: Walker (Order) Location: None Selected Ordered By: Valerai Estevez Referrals: Terrell Veridn MD [Primary Care Provider, Family Practice] Discharge Diet: Advance as tolerated and Diabetic Discharge Activity: Resume usual activity and Increase activity as tolerated Patient Instructions: Opioid Safety, Patient Portal & Yesenia Instructions Discharge Attestations Time Spent in Discharge Care*: less than 30 min Status at Discharge: Cognitive status at discharge: cognitively intact , Behavioral status at discharge: cooperative , Quality Metrics Clinical Quality Measures [ No reported AMI, CVA or VTE this stay] Coding Level of Care Code 93615 Diagnoses Hyperglycemia due to type 2 diabetes mellitus E11.65 Pseudohyponatremia R79.89 Acute kidney injury superimposed on CKD N17.9; N18.9 Hyperosmolar hyperglycemic state (HHS) E11.00 Time Spent (min) 30
[2024-11-28 11:33] VITALS: BP 136/75; PULSE 95; RESP 20; TEMP 36.9; O2SAT 100
[2024-11-28 13:42] VITALS: BP 136/75; PULSE 95; RESP 20; TEMP 36.9; O2SAT 100
== END 2024-11-28 13:44 | disposition home or self-care (01) | DRG 638 ==
LOC: ER 12:58 → ICU 14:08 → MEDSURG 11-26 13:50
PROVIDERS: Student in an Organized Health Care Education/Training Program; Admitting Provider Student in an Organized Health Care Education/Training Program; Emergency Provider Emergency Medicine; PCP Family Medicine; Visit Provider Internal Medicine
DX: E11.00 Type 2 diabetes mellitus with hyperosmolarity without nonketotic hyperglycemic-hyperosmolar coma (NKHHC) (principal); E87.1 Hypo-osmolality and hyponatremia; N17.9 Acute kidney failure, unspecified; N30.00 Acute cystitis without hematuria; Z79.4 Long term (current) use of insulin; Z79.85 Long-term (current) use of injectable non-insulin antidiabetic drugs; E11.22 Type 2 diabetes mellitus with diabetic chronic kidney disease; I12.9 Hypertensive chronic kidney disease with stage 1 through stage 4 chronic kidney disease, or unspecified chronic kidney disease; N18.9 Chronic kidney disease, unspecified; E87.5 Hyperkalemia; Z79.82 Long term (current) use of aspirin; T50.916A Underdosing of multiple unspecified drugs, medicaments and biological substances, initial encounter; Z91.128 Patient's intentional underdosing of medication regimen for other reason; Y92.9 Unspecified place or not applicable; F32.A Depression, unspecified; Z91.51 Personal history of suicidal behavior; R45.89 Other symptoms and signs involving emotional state
CPT/HCPCS: 36415; 36416; 36600; 51702; 70450; 71045; 76770; 80048; 80051; 80053; 80202; 81001; 82009; 82330; 82550; 82803; 82805; 82962; 83036; 83605; 83735; 84100; 84443; 85007; 85025; 85027; 87040; 87086; 87106; 93005; 94640; 94660; 96365; 96366; 96367; 96372; 96375; 97116; 97161; 99291; 99292; J0612; J1644; J1815; J2470; J2543; J3373; J3411; J7030; J7050; J7060; J7070; J7613; J7799; J9999